=== PATIENT | male | born 1950 | race Two or more races ===

== ENCOUNTER 2024-09-07 07:19 | Day surgery (SDC) | payer OTHER, SELFPAY ==
[2024-09-06 10:42] LABS: Basophils # (Auto) 0.1 Thou/mm3 (0.0-0.2); Basophils % (Auto) 1 % (0-2.5); Eosinophils # (Auto) 0.4 Thou/mm3 (0.0-0.5); Eosinophils % (Auto) 5 % (0-10); Hematocrit 24.1 % (41.0-53.0); Immature Granulocytes % (Auto) 0 % (0-0); Immature Granulocytes Auto 0.03 Thou/mm3 (0.00-0.00); Lymphocytes # (Auto) 1.1 Thou/mm3 (1.0-4.8); Lymphocytes % (Auto) 13 % (10-50); Mean Corpuscular HGB Conc 32.8 g/dl (31.0-37.0); Mean Corpuscular Hemoglobin 33.2 pg (25.0-35.0); Mean Corpuscular Volume 101 fL (80-100); Monocytes # (Auto) 0.6 Thou/mm3 (0.0-0.8); Monocytes % (Auto) 8 % (0-12); Neutrophils % (Auto) 73 % (37-80); Nucleated Red Blood Cell % 0 /100 WBC (0); Platelet Count 258 Thou/mm3 (140-440); RDW Standard Deviation 55.8 fL (35.1-43.9); Red Blood Count 2.38 Miln/mm3 (4.50-5.90); White Blood Count 8.1 Thou/mm3 (3.8-10.6)
[2024-09-06 10:54] LABS: Anion Gap 7 (7-16); BUN/Creatinine Ratio 15 Ratio (12-20); Blood Urea Nitrogen 39 mg/dL (9-23); Calcium 9.6 mg/dL (8.3-10.6); Carbon Dioxide 30.7 mMol/L (20.0-31.0); Chloride 101 mMol/L (98-107); Creatinine (Component) 2.6 mg/dL (0.6-1.3); Glucose 113 mg/dL (74-106); Osmolality,Calculated 287 (275-295); Potassium 3.8 mMol/L (3.4-5.1); Sodium 139 mMol/L (136-145); eGFR 25 See Note
[2024-09-06 11:26] LABS: Hemoglobin 7.9 g/dL (13.5-16.0); INR 1.1 (0.9-1.3); Partial Thromboplastin Time 32.7 Seconds (22.0-36.0); Prothrombin Time 11.7 Seconds (9.0-12.2)
[2024-09-07] VITALS (29 sets, daily range): BP systolic 95–149; BP diastolic 59–88; PULSE 60–62; RESP 12–91; TEMP 36.2–36.6; O2SAT 92–100; BMI 29.8
--- NOTE | 2024-09-07 07:20 | CHAP ---
Prayed with patient in [employer] H[employer] Operator before procedure.
--- NOTE | 2024-09-07 10:09 | PC.NURSE ---
per md order act checked. Act at 197. will reassess between 30min to 1hr per md orders
--- NOTE | 2024-09-07 11:55 | PC.NURSE ---
per md order act obtain. act 181. notified. per ok to remove shealth
--- NOTE | 2024-09-07 14:29 | ESOP_ITS ---
RE: ANGELICA LAU : 1950 PROCEDURES PERFORMED: 1. Percutaneous coronary intervention (PCI) of the right coronary artery. 2. PTCA and stent placement of the right coronary artery using drug-eluting stent 3.5 x 28 mm Synergy stent deployment, preprocedure stenosis 80%, postprocedure 0%, CPT code 34093. 3. Additional procedure, intracoronary lithotripsy of the right coronary artery, [employer], CPT code 45900. 4. Conscious sedation, 1 hour duration. 5. Ultrasound guidance of the right radial artery. DIAGNOSIS: Coronary artery disease, calcification of the right coronary artery with 80% stenosis of the right coronary artery with heavy calcification and recurrent chest pain on minimal exertion, class III angina. HISTORY AND INDICATIONS: Mr. Lau is a 74-year-old male with history of chronic kidney disease, hemodialysis, hypertension, multiple stents placed in the LAD, distal RCA, PDA, PL branches, was found to have 80% stenosis with concentric ring of calcium in the proximal RCA, unable to dilate the balloons, recommended to have intracoronary lithotripsy, intravascular lithotripsy balloon angioplasty followed by stent placement. DESCRIPTION OF PROCEDURE: The patient was brought to cardiac as an arbitrary, conscious sedation given 2 mg of Versed, 50 mcg of fentanyl for sedation. Femoral upper stricture, right femoral artery was cannulated via micropuncture technique and 6-Kazakh sheath was introduced. A 6-Kazakh FR4 guiding catheterization was used to cannulate the right coronary artery. The right coronary angiogram showed following findings, heavy calcification made on proximal RCA, 80% stenosis of the proximal right coronary artery. Distal right coronary artery has stents in the PDA as well as healed branches. Bifurcation stents are widely patent. Proceed with the ATOMIZER ASSEMBLER. The patient was given a total heparin of 7000 units and ACT was 290. Proceed with PCI already on aspirin and Plavix. A 0.014 run-through guide were used properly and successfully. Intravascular lithotripsy was attempted with 3.5 x 10 mm balloon; however, unable to cross the lesion. Hence, used a GuideIP Fabricslla guide liner with supported catheter with the help I was able to do pre-dilation angioplasty, 3.5 mm NC balloons , pre-dilated using a 3.5 x 10 mm intravascular lithotripsy balloon multiple areas were treated with intravascular lithotripsy. Subsequently, able to advance the stent a 3.5 x 28 mm Synergy stent was deployed successfully in the proximal mid right coronary artery with maximum atmospheres of 12. Subsequently, a 4.0 x 12 mm noncompliant balloon was used to dilate the stent with 40 atmosphere of pressure with excellent result with no residual stenosis. Final angiogram showed widely patent right carotid with no residual stenosis. SUMMARY OF FINDINGS: Single-vessel coronary artery disease, successful complex PCI stent placement of the proximal RCA 3.5 x 28 mm Synergy stent, preprocedure is 80%, postprocedure is 0%, PAUL flow pre and posterior 3. Successful intravascular lithotripsy to facilitate a PCI stent placement with no complications. Estimated blood loss less than 10 mL. DT: 13:29:04 TT: 14:28:00 Ref: [id number] - TID: [id number] MTDD
--- NOTE | 2024-09-07 17:17 | PC.NURSE ---
SURGICAL SITE TO RIGHT GROIN AREA REMAINS ASYMPTOMATIC, NO ACTIVE BLEEDING, NO HEMATOMA NOTED ON RIGHT GROIN AREA. RIGHT FEMORAL PULSE NOTED WITH NO CHANGES IN STRENGHT AND QUALITY UPON PALPATION (normal), RIGHT DORSALIS PEDIS PULSE NOTED WITH NO CHANGES STRENGHT AND QUALITY. DISTAL CAPPILARRY REFILL <3 SECONDS (Baseline, Right Toes). NO NOTED CHANGES IN COLOR OR TEMPERATURE ON RIGHT LOWER EXTREMITY. PATIENT DENIES GENERAL AND LOCALIZED PAIN. NO TINGLING OR NUMBNESS FELT TO RIGHT LOWER EXTREMITY. NO LOSS IN SENSATION TO RIGHT LOWER EXTEREMITY SURGICAL SITE COVERED WITH GAUZE AND TAGADERM DRESSING, WHICH REMAINS IN PLACE, DRY, AND INTACT.
== END 2024-09-07 17:46 | disposition home or self-care (01) ==
PROVIDERS: PCP Internal Medicine; Referring Provider Internal Medicine Cardiovascular Disease; Visit Provider Internal Medicine Cardiovascular Disease
PROC: (CPT 92972; principal; 2024-09-07 07:30)
PROC: (CPT 92972; 2024-09-07 07:30)
DX: I25.118 Atherosclerotic heart disease of native coronary artery with other forms of angina pectoris (principal); I12.9 Hypertensive chronic kidney disease with stage 1 through stage 4 chronic kidney disease, or unspecified chronic kidney disease; I12.0 Hypertensive chronic kidney disease with stage 5 chronic kidney disease or end stage renal disease; N18.6 End stage renal disease; Z99.2 Dependence on renal dialysis; Z95.5 Presence of coronary angioplasty implant and graft
CPT/HCPCS: 92972; C9600; 36415; 80048; 85025; 85347; 85610; 85730; 93005; 99152; 99153; A4649; C1725; C1761; C1769; C1874; C1887; C1894; J0171; J0461; J1643; J2250; J2270; J2310; J2371; J3010; J3490; Q9967; J1644; J2305

== ENCOUNTER 2024-09-13 10:51 | Emergency (ER) | payer OTHER, SELFPAY ==
[2024-09-13 10:52] VITALS: BMI 29.8
--- NOTE | 2024-09-13 11:00 | EKG_ITS ---
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
[2024-09-13 11:31] VITALS: BP 108/63; PULSE 61; RESP 20; TEMP 37.1; O2SAT 95; BMI 29.9
--- NOTE | 2024-09-13 11:38 | XR_ITS ---
Examination: PA chest lateral 2 views TECHNIQUE: Upright PA lateral chest 2 views Exam date and time: September 13, 2024 1210 hours Comparison August 08, 2024 INDICATIONS: Chest pain today FINDINGS: Mild heart failure Mild enlargement cardiac contour Prominent vascular congestion Bilateral pneumonia especially right lung base Cardiac leads satisfactory position IMPRESSION: Mild heart failure Significant bilateral pneumonia
--- NOTE | 2024-09-13 11:38 | PD.EDRME ---
Rapid Medical Screening Exam RME Arrival date/time: 09/13/24 10:51 74-year-old male ESRD on dialysis presents emergency department today stating was told to come here by the dialysis staff for low hemoglobin patient does report generalized weakness and increased swelling of the lower extremities Chief Complaint: Weakness Time Seen by Provider: 09/13/24 11:14 Vital signs: Vital Signs Temperature 98.7 F 09/13/24 11:31 Pulse Rate 61 09/13/24 11:31 Respiratory Rate 20 09/13/24 11:31 Blood Pressure 108/63 09/13/24 11:31 Pulse Oximetry (%) 95 09/13/24 11:31 Oxygen Delivery Method Room Air 09/13/24 11:31
[2024-09-13 12:08] LABS: Basophils # (Auto) 0.1 Thou/mm3 (0.0-0.2); Basophils % (Auto) 1 % (0-2.5); Eosinophils # (Auto) 0.4 Thou/mm3 (0.0-0.5); Eosinophils % (Auto) 6 % (0-10); Hematocrit 22.5 % (41.0-53.0); Immature Granulocytes % (Auto) 1 % (0-0); Immature Granulocytes Auto 0.03 Thou/mm3 (0.00-0.00); Lymphocytes % (Auto) 16 % (10-50); Mean Corpuscular HGB Conc 32.4 g/dl (31.0-37.0); Mean Corpuscular Hemoglobin 33.5 pg (25.0-35.0); Mean Corpuscular Volume 103 fL (80-100); Monocytes # (Auto) 0.5 Thou/mm3 (0.0-0.8); Monocytes % (Auto) 9 % (0-12); Neutrophils # (Auto) 4.2 Thou/mm3 (1.8-7.7); Neutrophils % (Auto) 68 % (37-80); Nucleated Red Blood Cell % 0 /100 WBC (0); Platelet Count 232 Thou/mm3 (140-440); RDW Standard Deviation 56.9 fL (35.1-43.9); Red Blood Count 2.18 Miln/mm3 (4.50-5.90); White Blood Count 6.2 Thou/mm3 (3.8-10.6)
[2024-09-13 12:12] LABS: Hemoglobin 7.3 g/dL (13.5-16.0)
[2024-09-13 12:21] LABS: INR 1.1 (0.9-1.3); Partial Thromboplastin Time 32.2 Seconds (22.0-36.0); Prothrombin Time 12.2 Seconds (9.0-12.2)
[2024-09-13 12:26] LABS: Alanine Aminotransferase 49 U/L (10-49); Albumin/Globulin Ratio 1.5 (1.2-2.2); Alkaline Phosphatase 152 U/L (46-116); Anion Gap 6 (7-16); Aspartate Amino Transferase 35 U/L (0-34); B-Type Natriuretic Peptide 2262 pg/mL (0-100); BUN/Creatinine Ratio 12 Ratio (12-20); Bilirubin,Total 0.4 mg/dL (0.3-1.2); Blood Urea Nitrogen 33 mg/dL (9-23); Carbon Dioxide 32.1 mMol/L (20.0-31.0); Chloride 102 mMol/L (98-107); Creatinine (Component) 2.8 mg/dL (0.6-1.3); Estimated Creatinine Clearance 29.2 mL/min (>60); Globulin 2.7 gm/dL (2.3-3.5); Glucose 181 mg/dL (74-106); Osmolality,Calculated 291 (275-295); Potassium 3.8 mMol/L (3.4-5.1); Sodium 140 mMol/L (136-145); Total Protein 6.7 gm/dL (5.7-8.2); eGFR 23 See Note
[2024-09-13 12:30] LABS: Troponin I 0.135 ng/mL (0.0-0.045)
--- NOTE | 2024-09-13 14:28 | PD.EDADULT ---
ED General RME/HPI General Chief complaint: Weakness Stated complaint: SENT FROM DIALYSIS FOR POSSIBLE BLOOD TRASFUSION Time Seen by Provider: 09/13/24 11:14 Arrival date/time: 09/13/24 10:51 RME / HPI RME / HPI narrative: 09/13/24 10:51 74-year-old male ESRD on dialysis presents emergency department today stating was told to come here by the dialysis staff for low hemoglobin patient does report generalized weakness and increased swelling of the lower extremities DR. MOSS MAIN ED EVALUATION 74 year old male with history of hypertension, diabetes, CKD, ESRD on HD, chronic back pain presents to the ED sent for low hemoglobin today. Patient reports he received his full dialysis treatment this morning and hours after arriving home was called by the dialysis clinic to come to the ED for blood transfusion. Denies any fevers, chills, chest pain, cough, shortness of breath, abdominal pain, or bleeding. No other complaints reported. Related Data Home Medications ?Medication ?Instructions ?Recorded ?Confirmed amiodarone 200 mg tablet 200 mg PO BID 07/13/23 09/07/24 vitamin B complex-vitamin C-folic 1 tab PO QDAY 07/13/23 09/07/24 acid 0.8 mg tablet (Homa-Franci) aspirin 81 mg tablet,delayed 81 mg PO QDAY 09/16/23 09/07/24 release atorvastatin 40 mg tablet 40 mg PO QPM 09/16/23 09/07/24 clopidogrel 75 mg tablet (Plavix) 75 mg PO QDAY 09/16/23 09/07/24 doxazosin 1 mg tablet 2 mg PO QDAY 09/16/23 09/07/24 hydrocodone 10 mg-acetaminophen 10 - 325 tab PO BID 09/18/23 09/07/24 325 mg tablet furosemide 20 mg tablet 20 mg PO 1XD 07/23/24 09/07/24 sodium bicarbonate 325 mg tablet 325 mg PO 1XD 07/23/24 09/07/24 albuterol sulfate 90 mcg/actuation 2 puff inhalation QID PRN sob 09/07/24 09/07/24 aerosol inhaler calcitriol 0.5 mcg capsule 0.5 mcg PO QDAY 09/07/24 09/07/24 empagliflozin 10 mg tablet 10 mg PO QDAY 09/07/24 09/07/24 (Jardiance) hydralazine 50 mg tablet 50 mg PO TID 09/07/24 09/07/24 pramipexole 0.5 mg tablet 0.5 mg PO BID 09/07/24 09/07/24 sevelamer carbonate 800 mg tablet 800 mg PO 09/07/24 Previous Rx's ?Medication ?Instructions ?Recorded metoprolol succinate 50 mg 50 mg PO QDAY #30 tabs 10/15/23 tablet,extended release 24 hr nitroglycerin 0.3 mg sublingual 0.3 mg buccal Q5MIN PRN chest pain 07/26/24 tablet #15 tabs Allergies Allergy/AdvReac Type Severity Reaction Status Date / Time No Known Allergies Allergy Verified 09/13/24 10:54 Review of Systems Review of Systems Narrative Review of Systems: GEN: No fever, no chills, no weight loss EYES: No discharge, no visual changes, no pain HEENT: No ear pain, no congestion, no sore throat PULM: No shortness of breath, no cough, no congestion CV: No chest pain, no dyspnea on exertion, no palpitations GI: No nausea, no vomiting, no diarrhea, no pain, no constipation : No frequency, no urgency and no dysuria MUSC/SKEL No joint pain, no back pain SKIN: No rash HEME/LYMPH: No easy bleeding or bruising tendencies NEURO: No weakness, no headache Past Medical History Past Medical History CARDIAC: Positive Cardiac Disorders, Myocardial Infarction, Cardiac Arrhythmia, Atrial Fibrillation, Angina and Hypertension RESPIRATORY: Positive Pneumonia GASTROINTESTINAL: Positive Gastrointestinal Disorders and Obesity GENITOURINARY: Positive Genitourinary Disorders, Renal Disease, Dialysis and Benign Prostatic Hyperplasia MUSCULOSKELETAL: Positive Musculoskeletal Disorders, Arthritis and Degenerative Joint Disease ENT: Positive Cataracts and Deafness (hearing aid) ENDOCRINE: Positive Endocrine Disorders and Diabetes Mellitus Type 2 HEMATOLOGIC: Positive Blood Disorders and Anemia PSYCHO/SOCIAL: Positive Depression and Anxiety OTHER HISTORY: Positive Hospitalization, Shingles, Blood Transfusions, Chicken Pox and Measles Family History FAMILY HISTORY: Positive Family Cardiac Disorders Surgical History SURGICAL: Positive Coronary Stent, Pacemaker, Angiogram, Joint Replacement and Arthroscopy Social History SMOKING STATUS: Never smoker SECOND HAND EXPOSURE: No SUBSTANCE USE: marijuana ED Exam Narrative Physical exam: GENERAL APPEARANCE: Well hydrated, well nourished, in no acute distress. VITALS: All vitals were reviewed and the pulse ox is 95% on room air which is normal according to my interpretation. HEENT: Normocephalic, atramatic, EOMI, EACs are patent. There is no bulge or retraction. Throat without erythema or exudate. Moist oromucosa. No jaundice NECK: Supple, no JVD or bruits. CARDIOVASCULAR: Heart regular without S3-S4 or murmur. No rubs or gallops. LUNGS/CHEST: Clear to auscultation bilaterally. No rales, rhonchi, or wheezing. Normal inspection. ABDOMEN: Soft, nontender, with normal bowel sounds. No pulsatile masses. No rebound, rigidity, or guarding. No incarcerated hernia. Normal inspection and palpation. EXTREMITIES: Normal inspection and palpation. No edema, clubbing, or cyanosis. Intact CSM SKIN: Warm and dry without rashes. Normal inspection. MUSCULOSKELETAL: Normal inspection. No gross deformity, full ROM all extremities NEURO: Alert and oriented x3. Cranial nerves II through XII grossly intact. There are no other motor or sensory deficits noted. PSYCHIATRIC: Normal mood and affect. No psychosis. Course Quality Measures none Orders Category Date Time Status EKG (ED ONLY) *Do not use* NOW Care 09/13/24 11:00 Completed Transfuse,blood/blood products NOW Care 09/13/24 14:56 Active EKG (ED Only) Stat Exams 09/13/24 11:00 Draft XR chest 2V Stat Exams 09/13/24 11:38 Completed B-Type Natriuretic Peptide Stat Lab 09/13/24 11:46 Completed CBC Stat Lab 09/13/24 11:46 Completed Comprehensive Metabolic Panel Stat Lab 09/13/24 11:46 Completed Partial Thromboplastin Time Stat Lab 09/13/24 11:46 Completed Prothrombin Time with INR Stat Lab 09/13/24 11:46 Completed Troponin I Stat Lab 09/13/24 11:46 Completed Type and Screen Stat Lab 09/13/24 11:46 Results prbc [Red Blood Cells] Stat Lab 09/13/24 11:46 Results Vital Signs Vital signs: Vital Signs Temperature 98.7 F 09/13/24 11:31 Pulse Rate 61 09/13/24 11:31 Respiratory Rate 20 09/13/24 11:31 Blood Pressure 108/63 09/13/24 11:31 Pulse Oximetry (%) 95 09/13/24 11:31 Oxygen Delivery Method Room Air 09/13/24 11:31 [facility] Patient data External records reviewed:: [facility] previous records (I reviewed admission from 08/08/2024 through 08/10/2024) Clinical information provided by:: patient Social determinants that could affect healthcare access:: none Patient has the following chronic illnesses:: hypertension, diabetes, CKD, ESRD on HD, chronic back pain How is presenting disease/condition affected by chronic disease/condition?: exacerbated by Evaluation data The following diagnostics were reviewed and interpreted by me:: lab results, radiology exam(s) and EKG tracing(s) Lab and/or radiology exams considered but not ordered:: None Interpretation Summary: Ordering Physician: Sayra VERA)Edgardo NP Date of Service: 09/13/24 Procedure(s): XR chest 2V Accession Number(s): [id number] cc: Sayra VERA),Edgardo DENTON; Glynn Mckenzie MD; Deshaun Riggs MD~ Examination: PA chest lateral 2 views TECHNIQUE: Upright PA lateral chest 2 views Exam date and time: September 13, 2024 1210 hours Comparison August 08, 2024 INDICATIONS: Chest pain today FINDINGS: Mild heart failure Mild enlargement cardiac contour Prominent vascular congestion Bilateral pneumonia especially right lung base Cardiac leads satisfactory position IMPRESSION: Mild heart failure Significant bilateral pneumonia Dictated By: Deshaun Riggs MD Signed By: <Electronically signed by Deshaun Riggs MD in OV> 09/13/24 1223 Medications Medications considered but not ordered:: None Medication administrations:: See above Consultations Consultation(s) initiated? (list below): Yes Consultation #1 (Physician, Specialty, Details): I spoke with Dr. Azevedo and she recommends 1 unit of PRBC and Augmentin for pneumonia. Diagnosis Differential Diagnosis ED Complaint MDM: anemia. GI bleed. Anemia of renal failure. Most likely diagnosis given after review of the tests above:: Anemia of renal failure Admission Indicated Admission indicated?: not indicated Explain why admission is indicated or not indicated:: Admission criteria not met Admission Request Was there a request for admission?: No Disposition Plan Disposition Plan: Discharge Discharge Attestation Discharge Attestation: The patient and all family members were given an opportunity to ask questions and understood the discharge instructions. Discharge instructions specifically effects, indications for sooner follow up or return to the emergency department, and the expected course of current diagnosis. Patient condition: Stable Medical Decision Making MDM Narrative MDM Narrative: Hemoglobin of 7 hematocrit is 22. Patient is stable. BUN is 33 creatinine is 2.8. Troponin is 0.135 but it is chronically elevated in the past. Portable chest x-ray interpreted by me: Enlarged heart. Pacemaker. Questionable slightly increased vasculature. Questionable bibasilar infiltrate. But clinically speaking the patient does not have any cough or fever. Mediastinum is normal. Normal bones. Twelve-lead EKG that was done at 1139 and interpreted by me: Pacemaker rhythm. Heart rate of 60. Left axis. 100% capture. I spoke to Dr. Patel on the phone. She confirmed that the patient will need 1 unit of packed red blood cell transfusion and then can be discharged home. She said the patient can take Augmentin for the pneumonia and she can follow-up with him as an outpatient. The plan was explained to the patient and he was well aware of it and he was consented to staying to get the blood transfusion. However at 6 PM we trying to look for the patient and he is nowhere to be found. Nursing put a note saying that he had eloped. I tried to call the patient on his own cellular phone but there was no answer. Differential Diagnosis Differential Diagnosis: anemia. GI bleed. Anemia of renal failure. Lab Data 09/13/24 11:46 09/13/24 11:46 Labs: Lab Results 09/13/24 Range/Units 11:46 WBC 6.2 (3.8-10.6) Thou/mm3 RBC 2.18 L (4.50-5.90) Miln/mm3 Hgb 7.3 L (13.5-16.0) g/dL Hct 22.5 L (41.0-53.0) % MCV 103 H (80-100) fL MCH 33.5 (25.0-35.0) pg MCHC 32.4 (31.0-37.0) g/dl RDW Std Deviation 56.9 H (35.1-43.9) fL Plt Count 232 (140-440) Thou/mm3 Neut % (Auto) 68 (37-80) % Lymph % (Auto) 16 (10-50) % [place] % (Auto) 9 (0-12) % Eos % (Auto) 6 (0-10) % Baso % (Auto) 1 (0-2.5) % Neut # (Auto) 4.2 (1.8-7.7) Thou/mm3 Lymph # (Auto) 1.0 (1.0-4.8) Thou/mm3 [place] # (Auto) 0.5 (0.0-0.8) Thou/mm3 Eos # (Auto) 0.4 (0.0-0.5) Thou/mm3 Baso # (Auto) 0.1 (0.0-0.2) Thou/mm3 Immature Gran # (Auto) 0.03 H (0.00-0.00) Thou/mm3 Absolute Nucleated RBC 0.00 (0.00-0.00) Thou/mm3 Immature Gran % 1 H (0-0) % Nucleated RBC % 0 (0) /100 WBC PT 12.2 (9.0-12.2) Seconds INR 1.1 (0.9-1.3) APTT 32.2 (22.0-36.0) Seconds Sodium 140 (136-145) mMol/L Potassium 3.8 (3.4-5.1) mMol/L Chloride 102 (98-107) mMol/L Carbon Dioxide 32.1 H (20.0-31.0) mMol/L Anion Gap 6 L (7-16) BUN 33 H (9-23) mg/dL Creatinine 2.8 H (0.6-1.3) mg/dL Estim Creat Clear Calc 29.2 L (>60) mL/min eGFR 23 L (60 - ) See Note BUN/Creatinine Ratio 12 (12-20) Ratio Glucose 181 H (74-106) mg/dL Calculated Osmolality 291 (275-295) Calcium 9.0 (8.3-10.6) mg/dL Corrected Calcium 9.0 (8.5-10.1) mg/dL Total Bilirubin 0.4 (0.3-1.2) mg/dL AST 35 H (0-34) U/L ALT 49 (10-49) U/L Alkaline Phosphatase 152 H (46-116) U/L Troponin I 0.135 H* (0.0-0.045) ng/mL B-Natriuretic Peptide 2262 H* (0-100) pg/mL Total Protein 6.7 (5.7-8.2) gm/dL Albumin 4.0 (3.4-4.8) gm/dL Globulin 2.7 (2.3-3.5) gm/dL Albumin/Globulin Ratio 1.5 (1.2-2.2) Blood Type O Positive Antibody Screen NEGATIVE Crossmatch See Detail Blood Bank Wristband ID Yes Discharge Plan Plan Patient Disposition: Elopement Disposition Comment: Stable Prescriptions/Referrals Prescriptions/Med Rec: No Action Homa-Franci 0.8 mg tablet 1 tab PO QDAY amiodarone 200 mg tablet 200 mg PO BID hydrocodone-acetaminophen 10-325 mg tablet 10 - 325 tab PO BID sodium bicarbonate 325 mg tablet 325 mg PO 1XD furosemide 20 mg tablet 20 mg PO 1XD Patient Comments: TAKE 1 TABLET BY MOUTH EVERY DAY nitroglycerin 0.3 mg tablet, sublingual 0.3 mg buccal Q5MIN MDD 3 pills within 15 minutes. PRN (Reason: chest pain) Qty: 15 0RF Rx Instructions: Place under tongue when chest pain starts. Can repeat dose in 5 minutes if pain does not improve with max total of 3 pills within 15 minutes. Do not mix with erectile dysfunction medicines. May cause low blood pressure and headaches. sevelamer carbonate 800 mg Tablet 800 mg PO calcitriol 0.5 mcg Capsule 0.5 mcg PO QDAY pramipexole 0.5 mg Tablet 0.5 mg PO BID hydralazine 50 mg Tablet 50 mg PO TID albuterol sulfate 90 mcg/actuation Hfa Aerosol Inhaler 2 puff INHALATION QID PRN (Reason: sob) Jardiance 10 mg Tablet 10 mg PO QDAY atorvastatin 40 mg Tablet 40 mg PO QPM doxazosin 1 mg Tablet 2 mg PO QDAY clopidogrel [Plavix] 75 mg Tablet 75 mg PO QDAY aspirin 81 mg Tablet,Delayed Release (Dr/Ec) 81 mg PO QDAY metoprolol succinate 50 mg tablet extended release 24 hr 50 mg PO QDAY Qty: 30 0RF Patient/Caregiver Discharge Instructions Print Language: Burundian
[2024-09-13 15:45] VITALS: BP 109/69; PULSE 67; RESP 20; TEMP 37.1; O2SAT 95
--- NOTE | 2024-09-13 17:14 | PC.NURSE ---
called for pt from lobby/outside, no answerx1 @ 2231
--- NOTE | 2024-09-13 18:01 | PC.NURSE ---
PATIENT CALLED STATES HE IS AT HOME. SOMEONE HAD CALLED HIM. I INFORMED PT THAT THE STAFF HAS CALLED HIM A FEW TIMES BUT I GUESS HE HAD LEFT. STATES HE WAITED FOR A LONG TIME IN THE LOBBY AND JUST LEFT HOME TO FOLLOW UP WITH HIS PMD. I INFORMED PT THAT HE SHOULD COME BACK AND FINISH HIS VISIT. HE STATES THAT HE IS NOT COMING BACK UNLESS HE FEELS WORSE AND WILL TAKE AN AMBULANCE BECAUSE HE DOESN'T WANT TO WAIT IN THE LOBBY. STATES HE WILL MAKE AN APPOINTMENT WITH HIS PMD
== END 2024-09-13 18:00 | disposition left against medical advice (07) ==
LOC: SERX 11:49
PROVIDERS: Nurse Practitioner Primary Care; Emergency Provider Emergency Medicine; PCP Internal Medicine
DX: I13.2 Hypertensive heart and chronic kidney disease with heart failure and with stage 5 chronic kidney disease, or end stage renal disease (principal); I50.9 Heart failure, unspecified; J18.9 Pneumonia, unspecified organism; E11.36 Type 2 diabetes mellitus with diabetic cataract; E11.22 Type 2 diabetes mellitus with diabetic chronic kidney disease; N18.6 End stage renal disease; R94.31 Abnormal electrocardiogram [ECG] [EKG]; Z95.0 Presence of cardiac pacemaker; I48.91 Unspecified atrial fibrillation; I25.2 Old myocardial infarction; Z95.5 Presence of coronary angioplasty implant and graft; Z79.84 Long term (current) use of oral hypoglycemic drugs; Z53.29 Procedure and treatment not carried out because of patient's decision for other reasons
CPT/HCPCS: 36415; 71046; 80053; 83880; 84484; 85025; 85610; 85730; 86850; 86900; 86901; 86923; 93005; 99281

== ENCOUNTER 2024-09-15 04:06 | Inpatient (IN) | payer OTHER, MEDICARE, SELFPAY ==
[2024-09-15] VITALS (35 sets, daily range): BP systolic 113–144; BP diastolic 66–96; PULSE 59–78; RESP 9–20; TEMP 36.1–36.4; O2SAT 94–99; BMI 28.5
--- NOTE | 2024-09-15 04:23 | PD.EDRME ---
Rapid Medical Screening Exam E Arrival date/time: 09/15/24 04:06 74M with history of CHF, CAD, Afib, DM and ESRD presents to ED needing blood transfusion. Patient was here several days ago for this but eloped prior to receiving blood products. Patient is currently on ABX for PNA but denies CP and SOB. Chief Complaint: General Adult/Misc Complain Vital signs: Vital Signs Temperature 97.5 F 09/15/24 04:13 Pulse Rate 60 09/15/24 04:13 Respiratory Rate 18 09/15/24 04:13 Blood Pressure 128/71 09/15/24 04:13 Pulse Oximetry (%) 95 09/15/24 04:13 Oxygen Delivery Method Room Air 09/15/24 04:13
--- NOTE | 2024-09-15 04:49 | EKG_ITS ---
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
[2024-09-15] MEDS: ALBUTEROL/IPRATROPIUM (Duoneb) RT SOL 3 ML NEBU INH (04:59)
[2024-09-15 05:14] LABS: Basophils # (Auto) 0.1 Thou/mm3 (0.0-0.2); Basophils % (Auto) 1 % (0-2.5); Eosinophils # (Auto) 0.5 Thou/mm3 (0.0-0.5); Eosinophils % (Auto) 7 % (0-10); Hematocrit 23.9 % (41.0-53.0); Immature Granulocytes % (Auto) 0 % (0-0); Immature Granulocytes Auto 0.03 Thou/mm3 (0.00-0.00); Lymphocytes # (Auto) 1.1 Thou/mm3 (1.0-4.8); Lymphocytes % (Auto) 16 % (10-50); Mean Corpuscular HGB Conc 31.4 g/dl (31.0-37.0); Mean Corpuscular Hemoglobin 33.3 pg (25.0-35.0); Mean Corpuscular Volume 106 fL (80-100); Monocytes # (Auto) 0.5 Thou/mm3 (0.0-0.8); Monocytes % (Auto) 7 % (0-12); Neutrophils % (Auto) 69 % (37-80); Nucleated Red Blood Cell % 0 /100 WBC (0); Platelet Count 213 Thou/mm3 (140-440); Red Blood Count 2.25 Miln/mm3 (4.50-5.90); White Blood Count 7.2 Thou/mm3 (3.8-10.6)
[2024-09-15 05:18] LABS: Hemoglobin 7.5 g/dL (13.5-16.0)
--- NOTE | 2024-09-15 05:21 | EDNOTE_ITS ---
ED General RME/HPI General Chief complaint: General Adult/Misc Complain Stated complaint: NEED BLOOD TRANSFUSION Time Seen by Provider: 09/15/24 04:48 Arrival date/time: 09/15/24 04:06 Limitations: no limitations RME / HPI RME / HPI narrative: 09/15/24 04:06 74M with history of CHF, CAD, Afib, DM and ESRD presents to ED needing blood transfusion. Patient was here several days ago for this but eloped prior to receiving blood products. Patient is currently on ABX for PNA but denies CP and SOB. ----- Dr. Reynolds's Main ED Evaluation: 74yo female presents to the ED for a blood transfusion. Patient was sent by his PCP 2 days ago for the same thing, but eloped prior to getting the blood transfusion. He reports mild shortness of breath and cough, reporting his was prescribed abx by his PCP, but has not picked them up yet. He denies any fever, chills or any other associated symptoms. Related Data Home Medications ?Medication ?Instructions ?Recorded ?Confirmed amiodarone 200 mg tablet 200 mg PO BID 07/13/23 09/15/24 vitamin B complex-vitamin C-folic 1 tab PO QDAY 07/13/23 09/15/24 acid 0.8 mg tablet (Homa-Franci) atorvastatin 40 mg tablet 40 mg PO QPM 09/16/23 09/15/24 clopidogrel 75 mg tablet (Plavix) 75 mg PO QDAY 09/16/23 09/15/24 doxazosin 1 mg tablet 2 mg PO QDAY 09/16/23 09/15/24 hydrocodone 10 mg-acetaminophen 10 - 325 tab PO Q6H PRN Pain 09/18/23 09/15/24 325 mg tablet furosemide 20 mg tablet 20 mg PO 1XD 07/23/24 09/15/24 albuterol sulfate 90 mcg/actuation 2 puff inhalation QID PRN sob 09/07/24 09/15/24 aerosol inhaler empagliflozin 10 mg tablet 25 mg PO QDAY 09/07/24 09/15/24 (Jardiance) hydralazine 50 mg tablet 25 mg PO TID 09/07/24 09/15/24 pramipexole 0.5 mg tablet 0.5 mg PO BID 09/07/24 09/15/24 amiodarone 200 mg tablet 200 mg PO 2XD 09/15/24 09/15/24 aspirin 81 mg capsule 81 mg PO QDAY 09/15/24 09/15/24 atorvastatin 40 mg tablet 40 mg PO QPM 09/15/24 09/15/24 clopidogrel 75 mg tablet 75 mg PO QDAY 09/15/24 09/15/24 empagliflozin 10 mg tablet 10 mg PO QDAY 09/15/24 09/15/24 (Jardiance) furosemide 20 mg tablet 20 mg PO QDAY 09/15/24 09/15/24 lactulose 10 gram/15 mL oral 10 g PO QDAY 09/15/24 09/15/24 solution melatonin 10 mg capsule 10 mg PO HS PRN Insomnia 09/15/24 09/15/24 vitamin B complex-vitamin C-folic 1 tab PO QDAY 09/15/24 09/15/24 acid 0.8 mg tablet (Homa-Franci) Previous Rx's ?Medication ?Instructions ?Recorded metoprolol succinate 50 mg 50 mg PO QDAY #30 tabs 10/15/23 tablet,extended release 24 hr nitroglycerin 0.3 mg sublingual 0.3 mg buccal Q5MIN PRN chest pain 07/26/24 tablet #15 tabs Allergies Allergy/AdvReac Type Severity Reaction Status Date / Time No Known Allergies Allergy Verified 09/17/24 12:30 Review of Systems Review of Systems Systems Reviewed: All systems reviewed, normal except as documented ED Exam General Limitations: Present no limitations General appearance: Present alert and in no apparent distress Head Head exam: Present atraumatic Eye Eye exam: Present normal appearance, PERRL and EOMI ENT ENT exam: Present normal exam, normal oropharynx and mucous membranes moist Neck Neck exam: Present normal inspection, full ROM and trachea midline Chest Chest inspection: Present normal inspection and symmetric chest wall rise Respiratory Respiratory exam: Present other (rales bilaterally R>L, no rhonchi) Cardiovascular Cardiovascular exam: Present regular rate, normal rhythm, normal heart sounds and other (pacemaker at the anterior left chest wall without any tenderness or erythema) Abdominal Exam Abdominal exam: Present soft and normal bowel sounds Extremities Exam Extremities exam: Present full ROM and pedal edema (2+ pitting edema to the bilateral ankles) Back Exam Back exam: Present normal inspection and full ROM Neurological Exam Neurological exam: Present alert, oriented X3 and CN II-XII intact Psychiatric Psychiatric exam: Present normal affect and normal mood Skin Skin exam: Present warm, dry, intact and normal color Course Quality Measures none Orders Category Date Time Status Dialysis [Hemodialysis] Urgent Care 09/15/24 09:14 Active EKG (ED ONLY) *Do not use* NOW Care 09/15/24 04:49 Completed Insert IV NOW Care 09/15/24 04:23 Completed EKG (ED Only) Stat Exams 09/15/24 04:49 Draft BNP [B-Type Natriuretic Peptide] Stat Lab 09/15/24 04:42 Completed CBC Stat Lab 09/15/24 04:42 Completed CMP [Comprehensive Metabolic Panel] Stat Lab 09/15/24 04:42 Completed Ferritin Stat Lab 09/15/24 04:49 Completed Folate Stat Lab 09/15/24 04:49 Completed Iron Stat Lab 09/15/24 04:49 Completed PT [Prothrombin Time with INR] Stat Lab 09/15/24 04:42 Completed PTT [Partial Thromboplastin Time] Stat Lab 09/15/24 04:42 Completed Red Blood Cells Stat Lab 09/15/24 04:42 Completed Total Iron Binding Capacity Stat Lab 09/15/24 04:49 Completed Troponin I Stat Lab 09/15/24 04:42 Completed Type and Screen Stat Lab 09/15/24 04:42 Completed Vitamin B12 Stat Lab 09/15/24 04:49 Completed Albumin Human 25% Ivpb [Albuminar-25 Ivpb] Med 09/15/24 09:15 Active 25 gm in 100 ml IV PRN Albuterol/Ipratr Rt Treasure [Duoneb Rt Treasure] Med 09/15/24 04:48 Discontinued 3 ml INH X1 ONE Epoetin Jose-Epbx [Retacrit Inj] Med 09/15/24 16:00 Discontinued 10,000 unit SC X1 ONE Vital Signs Vital signs: Vital Signs Temperature 97.5 F 09/15/24 04:13 Pulse Rate 60 09/15/24 04:13 Respiratory Rate 18 09/15/24 04:13 Blood Pressure 128/71 09/15/24 04:13 Pulse Oximetry (%) 95 09/15/24 04:13 Oxygen Delivery Method Room Air 09/15/24 04:13 Pulse ox is 95% on room air, which is normal according to my interpretation. [facility] Patient data External records reviewed:: [facility] previous records (Per chart review, patient was seen here 2 days ago for the same thing, but eloped.) Clinical information provided by:: patient Social determinants that could affect healthcare access:: none Patient has the following chronic illnesses:: hypertension, diabetes, CKD, ESRD on HD (/Thu), chronic back pain How is presenting disease/condition affected by chronic disease/condition?: c aused by Evaluation data The following diagnostics were reviewed and interpreted by me:: lab results and EKG tracing(s) Lab and/or radiology exams considered but not ordered:: none Interpretation Summary: WBC count is normal, HnH is 7.5/23.9, other labs pending at signout. EKG done at 0529, paced rhythm, rate of 60, no ST elevations or depressions, no STEMI, according to my interpretation. Medications Medications considered but not ordered:: none Medication administrations:: Medication Administration History Acetaminophen (Acetaminophen 325 Mg Tablet) 650 mg PO Q6H PRN; Protocol PRN Reason: Fever >100.4 or pain Stop: 10/15/24 11:50 Hydrocodone Bitart/Acetaminophen (Hydrocodone/Apap 5/325 Tablet) 1 tab PO Q4HR PRN PRN Reason: PAIN SCALE 4-6 (Moderate Stop: 09/20/24 11:50 Last Admin: 09/17/24 20:46 Dose: 1 tab Documented By: Admin: 09/17/24 16:46 Dose: 1 tab Documented By: Admin: 09/17/24 05:39 Dose: 1 tab Documented By: ROLANDO Comments: Okay to give pill by DR. Howard Admin: 09/16/24 20:18 Dose: 1 tab Documented By: Admin: 09/16/24 01:12 Dose: 1 tab Documented By: Admin: 09/15/24 21:00 Dose: 1 tab Documented By: KRISTAN Amiodarone HCl (Amiodarone Hcl 200 Mg Tablet) 200 mg PO BID [facility] Stop: 10/15/24 13:59 Last Admin: 09/17/24 20:42 Dose: 200 mg Documented By: Admin: 09/17/24 09:00 Dose: Not Given Documented By: NIKKI Non-Admin Reason: Not In Room Admin: 09/16/24 20:18 Dose: 200 mg Documented By: Admin: 09/16/24 08:34 Dose: 200 mg Documented By: Admin: 09/15/24 20:59 Dose: 200 mg Documented By: Admin: 09/15/24 16:40 Dose: 200 mg Documented By: TN Aspirin (Aspirin Ec 81 Mg Tabec) 81 mg PO QDAY [facility] Stop: 10/15/24 11:59 Last Admin: 09/17/24 09:00 Dose: Not Given Documented By: NIKKI Non-Admin Reason: Not In Room Admin: 09/16/24 08:35 Dose: 81 mg Documented By: Admin: 09/15/24 12:11 Dose: 81 mg Documented By: SILVINA Atorvastatin Calcium (Atorvastatin Calcium 20 Mg Tablet) 40 mg PO HS VIKRAM Stop: 10/15/24 20:59 Last Admin: 09/17/24 20:41 Dose: 40 mg Documented By: Admin: 09/16/24 20:18 Dose: 40 mg Documented By: Admin: 09/15/24 21:00 Dose: 40 mg Documented By: KRISTAN Dextrose (Dextrose 50%-Water Inj 50 Ml Syringe) 25 ml IV Q15MIN PRN PRN Reason: BG 50-70 responsive npo pt Stop: 10/15/24 11:50 Dextrose (Dextrose 50%-Water Inj 50 Ml Syringe) 50 ml IV Q15MIN PRN PRN Reason: BG <50 OR BG <70 & pt unresponsive Stop: 10/15/24 11:50 Furosemide (Furosemide Inj 10 Mg/Ml Vial 2 Ml) 20 mg IVP DAILY [facility] Stop: 10/17/24 08:59 Last Admin: 09/17/24 09:00 Dose: Not Given Documented By: NIKKI Non-Admin Reason: Not In Room Glucagon (Glucagon Inj 1 Mg Vial) 1 mg IM Q15MIN PRN PRN Reason: BG <70, and no IV access Albumin Human (Albuminar-25 Ivpb) 25 gm in 100 mls @ 100 mls/min IV PRN PRN PRN Reason: DIALYSIS Insulin Human Lispro (Insulin Lispro (Admelog) 1 Unit/0.01 Ml Unit) 0 unit SC ACHS [facility]; Protocol Stop: 10/15/24 16:59 Last Admin: 09/17/24 20:50 Dose: Not Given Documented By: ROLANDO Non-Admin Reason: Patient Refused Admin: 09/17/24 16:43 Dose: Not Given Documented By: NIKKI Non-Admin Reason: Per Protocol Admin: 09/17/24 12:14 Dose: Not Given Documented By: NIKKI Non-Admin Reason: Not In Room Admin: 09/17/24 07:27 Dose: Not Given Documented By: NIKKI Non-Admin Reason: Per Protocol Admin: 09/16/24 20:57 Dose: Not Given Documented By: ROLANDO Non-Admin Reason: Patient Refused Admin: 09/16/24 17:18 Dose: Not Given Documented By: TN Non-Admin Reason: Per Protocol Admin: 09/16/24 11:19 Dose: Not Given Documented By: TN Non-Admin Reason: NPO Admin: 09/16/24 07:27 Dose: Not Given Documented By: TN Non-Admin Reason: Per Protocol Admin: 09/15/24 21:00 Dose: Not Given Documented By: KRISTAN Non-Admin Reason: Patient Refused Admin: 09/15/24 17:26 Dose: 1 unit Documented By: JAMES Co-signed By: ANDREW Melatonin (Melatonin 3 Mg Tablet) 9 mg PO HS PRN PRN Reason: Insomnia Last Admin: 09/17/24 20:41 Dose: 9 mg Documented By: Admin: 09/15/24 20:59 Dose: 9 mg Documented By: KRISTAN Pantoprazole Sodium (Pantoprazole Inj 40 Mg Vial) 40 mg IVP QDAY VIKRAM Stop: 10/16/24 08:59 Last Admin: 09/17/24 09:00 Dose: Not Given Documented By: NIKKI Non-Admin Reason: Not In Room Admin: 09/16/24 08:33 Dose: 40 mg Documented By: JAMES Pramipexole Dihydrochloride (Pramipexole 0.25 Mg Tablet) 0.5 mg PO BID VIKRAM Stop: 10/15/24 20:59 Last Admin: 09/17/24 20:41 Dose: 0.5 mg Documented By: Admin: 09/17/24 09:00 Dose: Not Given Documented By: NIKKI Non-Admin Reason: Not In Room Admin: 09/16/24 20:19 Dose: 0.5 mg Documented By: Admin: 09/16/24 08:34 Dose: 0.5 mg Documented By: Admin: 09/15/24 20:59 Dose: 0.5 mg Documented By: KRISTAN Sennosides (Senna Tablet) 2 tab PO BID PRN; Protocol PRN Reason: CONSTIPATION Stop: 10/15/24 11:50 Vitamin B Complex/Vit C/Folic Acid (Vit B12/Vit C/Fa (Nephrovite) Tablet) 1 tab PO QDAY [facility] Stop: 10/16/24 08:59 Last Admin: 09/17/24 09:00 Dose: Not Given Documented By: NIKKI Non-Admin Reason: Not In Room Admin: 09/16/24 08:34 Dose: 1 tab Documented By: TN Discontinued Medications Acetaminophen (Acetaminophen 325 Mg Tablet) 650 mg PO Q6H PRN PRN Reason: PAIN SCALE 1-3 (mild Stop: 10/15/24 11:50 Albuterol/Ipratropium (Albuterol/Ipratropium (Duoneb) Rt Treasure 3 Ml Nebu) 3 ml INH X1 ONE Stop: 09/15/24 04:49 Last Admin: 09/15/24 04:59 Dose: 3 ml Documented By: EMILY Clopidogrel Bisulfate (Clopidogrel Bisulfate 75 Mg Tablet) 75 mg PO QDAY [facility] Stop: 10/15/24 11:59 Last Admin: 09/17/24 09:00 Dose: Not Given Documented By: NIKKI Non-Admin Reason: Not In Room Admin: 09/16/24 08:35 Dose: 75 mg Documented By: Admin: 09/15/24 12:11 Dose: 75 mg Documented By: SILVINA Diphenhydramine HCl (Diphenhydramine Inj 50 Mg/Ml Vial) 25 mg IV PRNMRX1 PRN PRN Reason: MODERATE SEDATION Stop: 09/17/24 12:47 Epoetin Jose (Epoetin Jose-Epbx 3,000 Unit/Ml Vial (Esrd)) 10,000 unit SC X1 ONE Stop: 09/15/24 16:01 Epoetin Jose (Epoetin Jose-Epbx Inj 10,000 Unit/Ml Vial (Esrd)) 10,000 unit SC X1 ONE Stop: 09/15/24 13:46 Last Admin: 09/15/24 15:30 Dose: 10,000 unit Documented By: MAGDY Epoetin Jose (Epoetin Jose-Epbx Inj 10,000 Unit/Ml Vial (Esrd)) 10,000 unit SC X1 ONE Stop: 09/17/24 10:01 Last Admin: 09/17/24 09:49 Dose: 10,000 unit Documented By: ED Fentanyl Citrate (Fentanyl Cit Inj 50 Mcg/Ml Amp 2ml) 50 mcg IV Q2M PRN PRN Reason: MODERATE SEDATION Stop: 09/17/24 12:47 Fentanyl Citrate (Fentanyl Cit Inj 50 Mcg/Ml Amp 2ml) Confirm Administered Dose 100 mcg .ROUTE .STK-MED ONE Stop: 09/17/24 11:58 Furosemide (Furosemide Inj 10 Mg/Ml Vial 2 Ml) 20 mg IVP BID VIKRAM Stop: 10/16/24 10:44 Last Admin: 09/16/24 11:24 Dose: 20 mg Documented By: TN Midazolam HCl (Midazolam Inj 1 Mg/Ml Vial 2 Ml) 2 mg IV Q2M PRN PRN Reason: Moderate Sedation Stop: 09/17/24 12:47 Midazolam HCl (Midazolam Inj 1 Mg/Ml Vial 2 Ml) Confirm Administered Dose 4 mg .ROUTE .STK-MED ONE Stop: 09/17/24 11:58 Polyethylene Glycol/Electrolytes (Na Frye/Nahco3/Lester/Peg (Golytely) 4,000 Ml Btl) 4,000 ml PO X1 ONE Stop: 09/17/24 12:24 Last Admin: 09/17/24 13:54 Dose: 4,000 ml Documented By: NIKKI Comments: Patient wanted to Speak to Dr. Collier before taking Polyethylene Glycol/Electrolytes (Na Frye/Nahco3/Lestre/Peg (Golytely) 4,000 Ml Btl) 4,000 ml PO X1 ONE Stop: 09/17/24 12:33 Last Admin: 09/17/24 12:45 Dose: Not Given Documented By: NIKKI Non-Admin Reason: Duplicate Medication on eMAR Comments: Per Dr. Collier only one needed see above Consultations Consultation(s) initiated? (list below): No Diagnosis Differential Diagnosis ED Complaint MDM: acute on chronic anemia, CHF, hyperkalemia, subacute pneumonia Most likely diagnosis given after review of the tests above:: see below Admission Indicated Admission indicated?: not indicated Explain why admission is indicated or not indicated:: Admission criteria not met. Admission Request Was there a request for admission?: No Disposition Plan Disposition Plan: other (specify) (Signed out to Dr. Macedo at 0600 pending blood transfusion and labs.) Medical Decision Making Differential Diagnosis Differential Diagnosis: acute on chronic anemia, CHF, hyperkalemia, subacute pneumonia Lab Data 09/17/24 05:25 09/17/24 05:25 Labs: Lab Results 09/15/24 09/15/24 Range/Units 04:42 04:49 WBC 7.2 (3.8-10.6) Thou/mm3 RBC 2.25 L (4.50-5.90) Miln/mm3 Hgb 7.5 L (13.5-16.0) g/dL Hct 23.9 L (41.0-53.0) % MCV 106 H (80-100) fL MCH 33.3 (25.0-35.0) pg MCHC 31.4 (31.0-37.0) g/dl RDW Std Deviation 60.0 H (35.1-43.9) fL Plt Count 213 (140-440) Thou/mm3 Neut % (Auto) 69 (37-80) % Lymph % (Auto) 16 (10-50) % [place] % (Auto) 7 (0-12) % Eos % (Auto) 7 (0-10) % Baso % (Auto) 1 (0-2.5) % Neut # (Auto) 5.0 (1.8-7.7) Thou/mm3 Lymph # (Auto) 1.1 (1.0-4.8) Thou/mm3 [place] # (Auto) 0.5 (0.0-0.8) Thou/mm3 Eos # (Auto) 0.5 (0.0-0.5) Thou/mm3 Baso # (Auto) 0.1 (0.0-0.2) Thou/mm3 Immature Gran # (Auto) 0.03 H (0.00-0.00) Thou/mm3 Absolute Nucleated RBC 0.00 (0.00-0.00) Thou/mm3 Immature Gran % 0 (0-0) % Nucleated RBC % 0 (0) /100 WBC PT 12.1 (9.0-12.2) Seconds INR 1.1 (0.9-1.3) APTT 31.4 (22.0-36.0) Seconds Sodium 139 (136-145) mMol/L Potassium 4.6 D (3.4-5.1) mMol/L Chloride 103 (98-107) mMol/L Carbon Dioxide 23.8 (20.0-31.0) mMol/L Anion Gap 12 (7-16) BUN 62 H (9-23) mg/dL Creatinine 4.4 H* D (0.6-1.3) mg/dL Estim Creat Clear Calc 18.2 L (>60) mL/min eGFR 14 L* (60 - ) See Note BUN/Creatinine Ratio 14 (12-20) Ratio Glucose 220 H (74-106) mg/dL Calculated Osmolality 302 H (275-295) Calcium 9.2 (8.3-10.6) mg/dL Corrected Calcium 9.3 (8.5-10.1) mg/dL Iron 62 L (65-175) mcg/dL TIBC 265 (250-425) mcg/dL Total Bilirubin 0.3 (0.3-1.2) mg/dL Ferritin 607 H (10.5-307.3) ng/mL AST 49 H (0-34) U/L ALT 57 H (10-49) U/L Alkaline Phosphatase 170 H (46-116) U/L Troponin I 0.079 H* (0.0-0.045) ng/mL B-Natriuretic Peptide 2630 H* (0-100) pg/mL Total Protein 6.8 (5.7-8.2) gm/dL Albumin 3.9 (3.4-4.8) gm/dL Globulin 2.9 (2.3-3.5) gm/dL Albumin/Globulin Ratio 1.3 (1.2-2.2) Vitamin B12 639 (211-911) pg/mL Folate > 24.00 (>5.38) ng/mL Blood Type O Positive Antibody Screen NEGATIVE Crossmatch See Detail Blood Bank Wristband ID Yes Discharge Plan Plan Patient Disposition: Admit Acute Care w/in Hospital Disposition Comment: Hospitalist to admit director day care center to consult Patient condition on transfer: Stable Problem List Clinical Impression: Fluid overload, ESRF (end stage renal failure), Acute anemia, Dialysis patient, Elevated troponin
[2024-09-15 05:56] LABS: INR 1.1 (0.9-1.3); Partial Thromboplastin Time 31.4 Seconds (22.0-36.0); Prothrombin Time 12.1 Seconds (9.0-12.2)
--- NOTE | 2024-09-15 06:25 | PD.EDADDENDU ---
Emergency Room Addendum Addendum Narrative: 0600: Care assumed from Dr. Reynolds, the previous shift emergency physician. Past medical, surgical, social and family history reviewed. Vitals and home medications reviewed. I will assume the care of the patient at this time, pending blood transfusion, labs, and reassessment. Please refer to the emergency department record for history and examination from initial visit.? Nursing notes reviewed by me. Vital signs reviewed by me. [facility] medical records reviewed by me.
[2024-09-15 06:35] LABS: B-Type Natriuretic Peptide 2630 pg/mL (0-100)
[2024-09-15 06:44] LABS: Alanine Aminotransferase 57 U/L (10-49); Albumin, Serum 3.9 gm/dL (3.4-4.8); Albumin/Globulin Ratio 1.3 (1.2-2.2); Alkaline Phosphatase 170 U/L (46-116); Anion Gap 12 (7-16); Aspartate Amino Transferase 49 U/L (0-34); BUN/Creatinine Ratio 14 Ratio (12-20); Bilirubin,Total 0.3 mg/dL (0.3-1.2); Blood Urea Nitrogen 62 mg/dL (9-23); Calcium 9.2 mg/dL (8.3-10.6); Calcium (Corrected) 9.3 mg/dL (8.5-10.1); Carbon Dioxide 23.8 mMol/L (20.0-31.0); Chloride 103 mMol/L (98-107); Creatinine (Component) 4.4 mg/dL (0.6-1.3); Estimated Creatinine Clearance 18.2 mL/min (>60); Globulin 2.9 gm/dL (2.3-3.5); Glucose 220 mg/dL (74-106); Osmolality,Calculated 302 (275-295); Potassium 4.6 mMol/L (3.4-5.1); Sodium 139 mMol/L (136-145); Total Protein 6.8 gm/dL (5.7-8.2); eGFR 14 See Note
[2024-09-15 06:51] LABS: Troponin I 0.079 ng/mL (0.0-0.045)
--- NOTE | 2024-09-15 08:35 | PD.EDRECHK ---
ED Recheck Abnl Lab Rx-RME/HPI General Chief Complaint: General Adult/Misc Complain Stated Complaint: NEED BLOOD TRANSFUSION Time Seen by Provider: 09/15/24 04:48 Arrival date/time: 09/15/24 04:06 Limitations: no limitations RME / HPI RME / HPI narrative: 09/15/24 04:06 74M with history of CHF, CAD, Afib, DM and ESRD presents to ED needing blood transfusion. Patient was here several days ago for this but eloped prior to receiving blood products. Patient is currently on ABX for PNA but denies CP and SOB. ----- Dr. Reynolds's Main ED Evaluation: 74yo female presents to the ED for a blood transfusion. Patient was sent by his PCP 2 days ago for the same thing, but eloped prior to getting the blood transfusion. He reports mild shortness of breath and cough, reporting his was prescribed abx by his PCP, but has not picked them up yet. He denies any fever, chills or any other associated symptoms. Dr. Macedo: 0600: Care assumed from Dr. Reynolds, the previous shift emergency physician. Past medical, surgical, social and family history reviewed. Vitals and home medications reviewed. I will assume the care of the patient at this time, pending blood transfusion, labs, and reassessment. Please refer to the emergency department record for history and examination from initial visit.? Patient reports he was evaluated here just 3 days ago also advised to come to the ED by the staff at the dialysis clinic. States he has received only 1 blood transfusion before and has no previous history of anemia. Denies any bleeding. Further history by myself reveals patient a dialysis patient he has been having increasing fluid overload and had recently increased amount of dialysis from 2-3 times a week but nonetheless his legs are still swollen. Also the dialysis people are concerned because hemoglobin was 6.8 and that is a personal communication from Dr Azevedo when I called her and asked why he was prompted to come here to get a unit of blood. Last dialysis was 2 days ago. There is no fever vomiting diarrhea there is no other complaints today. He has had generalized weakness getting worse over the last couple weeks. Related Data Home Medications ?Medication ?Instructions ?Recorded ?Confirmed amiodarone 200 mg tablet 200 mg PO BID 07/13/23 09/15/24 vitamin B complex-vitamin C-folic 1 tab PO QDAY 07/13/23 09/15/24 acid 0.8 mg tablet (Homa-Franci) atorvastatin 40 mg tablet 40 mg PO QPM 09/16/23 09/15/24 clopidogrel 75 mg tablet (Plavix) 75 mg PO QDAY 09/16/23 09/15/24 doxazosin 1 mg tablet 2 mg PO QDAY 09/16/23 09/15/24 hydrocodone 10 mg-acetaminophen 10 - 325 tab PO Q6H PRN Pain 09/18/23 09/15/24 325 mg tablet furosemide 20 mg tablet 20 mg PO 1XD 07/23/24 09/15/24 albuterol sulfate 90 mcg/actuation 2 puff inhalation QID PRN sob 09/07/24 09/15/24 aerosol inhaler empagliflozin 10 mg tablet 25 mg PO QDAY 09/07/24 09/15/24 (Jardiance) hydralazine 50 mg tablet 25 mg PO TID 09/07/24 09/15/24 pramipexole 0.5 mg tablet 0.5 mg PO BID 09/07/24 09/15/24 lactulose 10 gram/15 mL oral 10 g PO QDAY 09/15/24 09/15/24 solution Previous Rx's ?Medication ?Instructions ?Recorded metoprolol succinate 50 mg 50 mg PO QDAY #30 tabs 10/15/23 tablet,extended release 24 hr nitroglycerin 0.3 mg sublingual 0.3 mg buccal Q5MIN PRN chest pain 07/26/24 tablet #15 tabs Allergies Allergy/AdvReac Type Severity Reaction Status Date / Time No Known Allergies Allergy Verified 09/13/24 10:54 Review of Systems Review of Systems Narrative Review of Systems: Constitutional: SEE HPI +generalized weakness. DENIES; Fevers Eyes: DENIES; Loss of vision Head/Ear/Nose: DENIES; Loss of hearing Throat: DENIES; Dysphagia Cardiovascular: DENIES; Chest pain, dyspnea or syncope Respiratory: DENIES; Shortness of breath Gastrointestinal: DENIES; Rectal bleeding or melena. Genitourinary: DENIES; Dysuria (painful or difficult urination) Musculoskeletal: DENIES; Arthralgia (pain in a joint),; Skin: DENIES; Rash Neurological: DENIES; Loss of function or movement Psychiatric: DENIES; recent major life stressor, emotional problem, illicit drug use or abuse Endocrinology: DENIES; Weight change Hematologic/Lymphatic: SEE HPI, patient was told his hgb levels were low. DENIES; Abnormal bruising Allergic/Immunologic: DENIES; Urticaria (hives) Past Medical History Past Medical History CARDIAC: Positive Cardiac Disorders, Myocardial Infarction, Cardiac Arrhythmia, Atrial Fibrillation, Angina, Congestive Heart Failure and Hypertension RESPIRATORY: Positive Pneumonia GASTROINTESTINAL: Positive Gastrointestinal Disorders and Obesity GENITOURINARY: Positive Genitourinary Disorders, Renal Disease, Dialysis and Benign Prostatic Hyperplasia MUSCULOSKELETAL: Positive Musculoskeletal Disorders, Arthritis and Degenerative Joint Disease ENT: Positive Cataracts and Deafness ENDOCRINE: Positive Endocrine Disorders and Diabetes Mellitus Type 2 HEMATOLOGIC: Positive Blood Disorders and Anemia PSYCHO/SOCIAL: Positive Depression and Anxiety OTHER HISTORY: Positive Hospitalization, Shingles, Blood Transfusions and Measles Family History FAMILY HISTORY: Positive Family Cardiac Disorders Surgical History SURGICAL: Positive Coronary Stent, Pacemaker, Angiogram, Joint Replacement and Arthroscopy Social History SMOKING STATUS: Never smoker SECOND HAND EXPOSURE: No SUBSTANCE USE: marijuana ED Exam Narrative Physical exam: Physical Exam: General: The vital signs were reviewed. The patient is non-toxic, in no apparent distress and appears healthy with a patent airway, no respiratory distress and has no apparent circulatory problems. Head & Scalp: Normocephalic, atraumatic. Face: Appears normal and is without lesions, deformity. Ears: Left external pinna appears normal. Right external pinna appears normal. Eyes: The sclera is anicteric. No obvious photophobia. The Left and Right Orbit/Lid/Conjunctiva appears normal without swelling, discoloration or injection. Nose: The nose is without deformity, discharge or tenderness; Throat: Appears normal. The mucous membranes are pink and moist without exudates, redness or mass seen. The tongue appears normal. Neck: The neck is supple and no apparent mass or adenopathy. Chest: The chest wall is normal in size and symmetry and has no chest wall tenderness or crepitus. The patient displays normal ventilator effort without retractions, accessory muscle use and has adequate air movement bilaterally with no wheezes and no rales. Cardiovascular: Regular rate and rhythm; No murmurs, rubs, or gallops; Gastrointestinal: The abdomen appears normal. No obvious hernias or mass. The abdomen is soft and benign, non-distended, with no pain, no guarding and no rebound tenderness. Bowel sounds are present and normal sounding. No CVA tenderness. Genitourinary: Rectal exam was done is brown stool is guaiac negative. Back/Spine: Normal Spektor nontender Extremities/Musculoskeletal/lymphatic: The bilateral upper and lower extremities are warm. There is no evidence of arterial insufficiency. There is no evidence of venous insufficiency/edema. The patient spontaneously moves bilateral upper and lower extremities with no pain and no limitation of movement. There is no apparent, injury or trauma. Skin: The skin is warm, dry and intact. No rashes. No petechia. No purpura. No abnormal bruising. The color is appropriate with no cyanosis. Mental status/Psychiatric: Mental status is appropriate for age. The patient has no apparent delusions, visual hallucinations, no apparent audible hallucinations. The patient has no apparent suicidal thoughts/ideation and no apparent homicidal thoughts/ideation. Neurological: The patient is awake, alert, interactive, cordial, cooperative and is oriented to name and situation. The patient follows commands and answers historical question with no impairment. There is no visual disturbance apparent. The pupils are equal and reactive bilaterally with normal eye movements and no diplopia The bilateral upper and lower extremities have normal strength, normal range of motion and normal functioning. The gait, station and balance were not tested due to acuity General Limitations: Present no limitations General appearance: Present alert and in no apparent distress Course Quality Measures none Orders Category Date Time Status Dialysis [Hemodialysis] Urgent Care 09/15/24 09:14 Active EKG (ED ONLY) *Do not use* NOW Care 09/15/24 04:49 Completed Insert IV NOW Care 09/15/24 04:23 Active EKG (ED Only) Stat Exams 09/15/24 04:49 Draft BNP [B-Type Natriuretic Peptide] Stat Lab 09/15/24 04:42 Completed CBC Stat Lab 09/15/24 04:42 Completed CMP [Comprehensive Metabolic Panel] Stat Lab 09/15/24 04:42 Completed Ferritin Stat Lab 09/15/24 04:49 Completed Folate Stat Lab 09/15/24 04:49 Completed Iron Stat Lab 09/15/24 04:49 Completed PT [Prothrombin Time with INR] Stat Lab 09/15/24 04:42 Completed PTT [Partial Thromboplastin Time] Stat Lab 09/15/24 04:42 Completed Red Blood Cells Stat Lab 09/15/24 04:42 Results Total Iron Binding Capacity Stat Lab 09/15/24 04:49 Completed Troponin I Stat Lab 09/15/24 04:42 Completed Type and Screen Stat Lab 09/15/24 04:42 Results Vitamin B12 Stat Lab 09/15/24 04:49 Completed Albumin Human 25% Ivpb [Albuminar-25 Ivpb] Med 09/15/24 09:15 Active 25 gm in 100 ml IV PRN Albuterol/Ipratr Rt Treasure [Duoneb Rt Treasure] Med 09/15/24 04:48 Discontinued 3 ml INH X1 ONE Epoetin Jose-Epbx [Retacrit Inj] Med 09/15/24 16:00 Discontinued 10,000 unit SC X1 ONE Vital Signs Vital signs: Vital Signs Temperature 97.5 F 09/15/24 04:13 Pulse Rate 60 09/15/24 04:13 Respiratory Rate 18 09/15/24 04:13 Blood Pressure 128/71 09/15/24 04:13 Pulse Oximetry (%) 95 09/15/24 04:13 Oxygen Delivery Method Room Air 09/15/24 04:13 Pulse ox is 95% on room air which is adequate. Recheck / Abnormal Lab / Rx MDM Narrative MDM Narrative:: IDebi, am scribing for and in the presence of Dr. Macedo. Patient has several hemoglobins in the past week today is 7.5 with generalized weakness and increased swelling. I consulted the patient's coordinator of library services Dr. Azevedo and she feels this patient should be admitted for anemia workup. Also he will need to be dialyzed to get a unit of blood so hopefully have some more strength and energy that the patient is on Plavix but there is no evidence of bleeding anywhere and clinically there is none in the on rectal exam today. Also note the BNP is highly elevated consistent with his fluid overload condition Hospitalist was called and they will be admitting. Patient data External records reviewed:: [facility] previous records (I reviewed ED visit note from this morning. I reviewed ED visit on 09/13/2024. ) Clinical information provided by:: patient Social determinants that could affect healthcare access:: none Patient has the following chronic illnesses:: hypertension, diabetes, CKD, ESRD on HD, chronic back pain How is presenting disease/condition affected by chronic disease/condition?: exacerbated by Evaluation data The following diagnostics were reviewed and interpreted by me:: lab results and EKG tracing(s) Lab and/or radiology exams considered but not ordered:: None Interpretation Summary: As noted above. Medications / Prescriptions Medications or Prescriptions considered but not ordered:: None Medication administrations:: Medication Administration History Acetaminophen (Acetaminophen 325 Mg Tablet) 650 mg PO Q6H PRN PRN Reason: Fever >100.4 or pain Stop: 10/15/24 11:50 Acetaminophen (Acetaminophen 325 Mg Tablet) 650 mg PO Q6H PRN PRN Reason: PAIN SCALE 1-3 (mild Stop: 10/15/24 11:50 Hydrocodone Bitart/Acetaminophen (Hydrocodone/Apap 5/325 Tablet) 1 tab PO Q4HR PRN PRN Reason: PAIN SCALE 4-6 (Moderate Stop: 09/20/24 11:50 Amiodarone HCl (Amiodarone Hcl 200 Mg Tablet) 200 mg PO BID [facility] Stop: 10/15/24 13:59 Last Admin: 09/15/24 16:40 Dose: 200 mg Documented By: UT Aspirin (Aspirin Ec 81 Mg Tabec) 81 mg PO QDAY [facility] Stop: 10/15/24 11:59 Last Admin: 09/15/24 12:11 Dose: 81 mg Documented By: CANDIS Atorvastatin Calcium (Atorvastatin Calcium 20 Mg Tablet) 40 mg PO HS [facility] Stop: 10/15/24 20:59 Clopidogrel Bisulfate (Clopidogrel Bisulfate 75 Mg Tablet) 75 mg PO QDAY [facility] Stop: 10/15/24 11:59 Last Admin: 09/15/24 12:11 Dose: 75 mg Documented By: CANDIS Dextrose (Dextrose 50%-Water Inj 50 Ml Syringe) 25 ml IV Q15MIN PRN PRN Reason: BG 50-70 responsive npo pt Stop: 10/15/24 11:50 Dextrose (Dextrose 50%-Water Inj 50 Ml Syringe) 50 ml IV Q15MIN PRN PRN Reason: BG <50 OR BG <70 & pt unresponsive Stop: 10/15/24 11:50 Glucagon (Glucagon Inj 1 Mg Vial) 1 mg IM Q15MIN PRN PRN Reason: BG <70, and no IV access Albumin Human (Albuminar-25 Ivpb) 25 gm in 100 mls @ 100 mls/min IV PRN PRN PRN Reason: DIALYSIS Insulin Human Lispro (Insulin Lispro (Admelog) 1 Unit/0.01 Ml Unit) 0 unit SC ACHS VIKRAM; Protocol Stop: 10/15/24 16:59 Last Admin: 09/15/24 17:26 Dose: 1 unit Documented By: UT Co-signed By: ANDREW Pantoprazole Sodium (Pantoprazole Inj 40 Mg Vial) 40 mg IVP QDAY VIKRAM Stop: 10/16/24 08:59 Sennosides (Senna Tablet) 2 tab PO BID PRN; Protocol PRN Reason: CONSTIPATION Stop: 10/15/24 11:50 Discontinued Medications Albuterol/Ipratropium (Albuterol/Ipratropium (Duoneb) Rt Treasure 3 Ml Nebu) 3 ml INH X1 ONE Stop: 09/15/24 04:49 Last Admin: 09/15/24 04:59 Dose: 3 ml Documented By: EMILY Epoetin Jose (Epoetin Jose-Epbx 3,000 Unit/Ml Vial (Esrd)) 10,000 unit SC X1 ONE Stop: 09/15/24 16:01 Epoetin Jose (Epoetin Jose-Epbx Inj 10,000 Unit/Ml Vial (Esrd)) 10,000 unit SC X1 ONE Stop: 09/15/24 13:46 Last Admin: 09/15/24 15:30 Dose: 10,000 unit Documented By: MM See above Consultations Consultation(s) initiated? (list below): Yes Consultation #1 (Physician, Specialty, Details): I spoke with patients coordinator of library services Dr. Azevedo. Discussed patients HPI, ED course, exam findings, labs results. Time: 07:30 Consultation #2 (Physician, Specialty, Details): I updated Dr. Azevedo on the hemoccult results. Time: 08:55 Diagnosis Recheck Differential Diagnosis: other (anemia, GI bleed, anemia in renal failure.) Most likely diagnosis given after review of the tests above:: Fluid overload ESRF Acute anemia Dialysis patient Elevated troponin Admission Indicated Admission indicated?: indicated Admission Request Was there a request for admission?: No Disposition Plan Disposition Plan: Admit Discharge Plan Plan Patient Disposition: Admit Acute Care w/in Hospital Disposition Comment: Hospitalist to admit coordinator of library services to consult Problem List Clinical Impression: Fluid overload, ESRF (end stage renal failure), Acute anemia, Dialysis patient, Elevated troponin
[2024-09-15 08:41] LABS: Folate > 24.00 ng/mL (>5.38); Vitamin B12 639 pg/mL (211-911)
[2024-09-15 09:42] LABS: Iron 62 mcg/dL (65-175)
--- NOTE | 2024-09-15 11:52 | ESHP_ITS ---
<Statement entered by Braden Donato MD - 09/15/24 15:22> This patient is a 74-year-old male with past medical history of CAD with recent stent placement in July 2024, ESRD on dialysis Tuesdays and Saturdays since 2022, CHF, type 2 diabetes, A-fib with ICD presented with possible acute blood loss observed in dialysis center. Patient was found to have an hemoglobin of 7.3. Patient reported that he has been feeling generalized weakness with worsening dyspnea and lower extremity swelling. Patient is admitted for fluid overload state related to CHF and ESRD and will be receiving dialysis today per nephrology recommendations. Certified Composites Technician recommended to transfuse him 1 unit PRBC and follow-up with post H&H and keep hemoglobin above 8?8.5 given significant cardiac history. Continues home medications as prescribed. Holding antihypertensives given soft blood pressure. Will continue with hemodialysis and transfusing 1 unit and follow-up with post H&H. Electrolytes were managed. All labs and orders were reviewed. I saw and examined the patient, and I agree with current management stated by Dr Boubacar MD,PGY1. Plan of care was discussed with the attending physician and resident physician. Disclaimer: Despite multiple revisions, due to the dictation software being used, the document bellow may not be free of grammatical errors including phonetic/typographic errors. However, this does not deter from our commitment to providing health care in the patient's best interest in mind. Dr. Tanmay MD, PGY 2 Documentation for date of: 09/15/24 HPI History of Present Illness Chief complaint: SOB History of present illness: HPI: Giancarlo Martino is a 74 year old male with past medical history of CAD with multiple stents, ESRD(on dialysis Thursday and Thursday since 2022), HFrEF [35-40%], NIDDM type II [6], atrial flutter, and ICD placement. Presented today with a chief complaint of SOB. Patient states that for the past couple of weeks he has had progressively worsening SOB associated with generalized weakness. He was assessed by his primary care doctor who made arrangements for home oxygen, but he did not receive it. He also had progressively worsening lower extremity edema during the same time. Patient denies any chest pain/pressure or palpitations. Patient's last dialysis session was Thursday and from his labs his hemoglobin was found to be 7 and he was told to present to the ED for a blood transfusion. He presented to the ED but did not want to wait and absconded. He again presented today now with worsening SOB. He denies experiencing dizziness, N/V, fever, cough, and change in appetite. Of note, was admitted to [facility] in July 2024 for NSTEMI type 1 which led to stent placement and he was discharged home on plavix and aspirin. On arrival to hospital he was found to have BP of 128/71, HR of 60, RR of 18. Labs showed Hgb of 7.5, Hct of 23.9, MCV of 106, BUN o f62, Cr 4.4, GFR of 14, Trop of 0.079( which has gone down from 09/13/2024), BNP of 2630(was 2262 on 09/13/2024). Patient had CXR today which showed flash pulmonary edema with no signs of consolidation. Patient will be admitted for volume overload requiring hemodialysis. Review of Systems Review of Systems Narrative Review of Systems: GENERAL: Denies fever/chills or diaphoresis. HEENT: Denies headaches or visual changes. Denies discharge. Neuro: Denies difficulty speaking. CARDIO: As above PULM: As above GI: Denies abdominal pain, N/V/C/D. Reports having BMs. URO: Denies buring/itching/pain/urinary changes. MSK/EXT/SKIN: Denies joint/skeletal/muscle pain, issues/changes in upper or lower extremities, itchiness, or superficial pain. PSYCH: Cooperative, pleasant mood & affect. The rest of the review of systems is otherwise negative. Past Medical History Past Medical History Comments PMH COMMENT: PMH: Positive for HFrEF ejection fraction 35%, status post pacemaker/ICD, coronary artery disease status post stents 2022, atrial fibrillation, insulin-dependent diabetes mellitus, end-stage renal disease, BPH and normocytic anemia PSHx: Cardiac cath, 2 spinal fusion surgeries, bilateral knee replacement with implants, ICD/pacemaker placement, cataract surgeries Allergies: No known allergies Social history: -Smoking: History of heavy smoking, 1 pack/day for 10 years in the past and stopped 30 years ago -Alcohol Use: Occasional alcohol use in the past -Illicit Drug Use: Denies using cannabinoids now, reports using melatonin -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 Elderly male on oxygen via nasal cannula. CHEST: Symmetrical, atraumatic, and with equal expansion , Nontender on palpation no deformity and no crepitus. CARDIOVASCULAR: Heart regular rhythm no murmur or gallop rub or extra beats. LUNGS: Wheezes and crackles noted throughout all lung bermudez, reduced air entry throughout all lung bermudez as well ABDOMEN: Soft, obese , nontender to palpation, no guarding or rebound tenderness.? There are no abnormal masses palpated.? Active and normal bowel sounds. EXTREMITIES: 2+ edema to lower extremities up to knees bilaterally, scrotal edema -- Patient was seen and discussed with attending physician, Dr. Pérez and resident physician, , PGY1 and Dr. Donato, PGY 2 Edgardo Ramos Medical student I have seen and examined the patient with medical student Edgardo Ramos , agree with his findings and have edited it with my assessment as well. Adrien Yousif MD PGY1 Results: Labs 09/19/24 05:12 09/19/24 05:12 Labs: Short CBC 09/15/24 Range/Units 04:42 WBC 7.2 (3.8-10.6) Thou/mm3 Hgb 7.5 L (13.5-16.0) g/dL Hct 23.9 L (41.0-53.0) % Plt Count 213 (140-440) Thou/mm3 BMP 09/15/24 04:42 Sodium 139 Potassium 4.6 D Chloride 103 Carbon Dioxide 23.8 BUN 62 H Creatinine 4.4 H* D Glucose 220 H Calcium 9.2 Cardiac Enzymes 09/15/24 Range/Units 04:42 Troponin I 0.079 H* (0.0-0.045) ng/mL Liver Function 09/15/24 Range/Units 04:42 Total Bilirubin 0.3 (0.3-1.2) mg/dL AST 49 H (0-34) U/L ALT 57 H (10-49) U/L Alkaline Phosphatase 170 H (46-116) U/L Albumin 3.9 (3.4-4.8) gm/dL Quality Measures Quality Measures none Advance care planning discussed with:: other Medications Home Medications and Allergies Home Medications ?Medication ?Instructions ?Recorded ?Confirmed ?Type amiodarone 200 mg tablet 200 mg PO BID 07/13/23 09/15/24 History vitamin B complex-vitamin C-folic 1 tab PO QDAY 07/13/23 09/15/24 History acid 0.8 mg tablet (Homa-Franci) doxazosin 1 mg tablet 2 mg PO QDAY 09/16/23 09/15/24 History hydrocodone 10 mg-acetaminophen 10 - 325 tab PO Q6H PRN Pain 09/18/23 09/15/24 History 325 mg tablet albuterol sulfate 90 mcg/actuation 2 puff inhalation QID PRN sob 09/07/24 09/15/24 History aerosol inhaler pramipexole 0.5 mg tablet 0.5 mg PO BID 09/07/24 09/15/24 History aspirin 81 mg capsule 81 mg PO QDAY 09/15/24 09/15/24 History atorvastatin 40 mg tablet 40 mg PO QPM 09/15/24 09/15/24 History clopidogrel 75 mg tablet 75 mg PO QDAY 09/15/24 09/15/24 History furosemide 20 mg tablet 20 mg PO QDAY 09/15/24 09/15/24 History lactulose 10 gram/15 mL oral 10 g PO QDAY 09/15/24 09/15/24 History solution melatonin 10 mg capsule 10 mg PO HS PRN Insomnia 09/15/24 09/15/24 History Allergies Allergy/AdvReac Type Severity Reaction Status Date / Time No Known Allergies Allergy Verified 09/17/24 12:30 Visit Medications Epoetin Jose (Epoetin Jose-Epbx 3,000 Unit/Ml Vial (Esrd)) 10,000 unit SC X1 ONE Stop: 09/15/24 16:01 Albumin Human (Albuminar-25 Ivpb) 25 gm in 100 mls @ 100 mls/min IV PRN PRN PRN Reason: DIALYSIS Discontinued Medications Albuterol/Ipratropium (Albuterol/Ipratropium (Duoneb) Rt Treasure 3 Ml Nebu) 3 ml INH X1 ONE Stop: 09/15/24 04:49 Last Admin: 09/15/24 04:59 Dose: 3 ml Assessment & Plan Plan Giancarlo Martino is a 74 year old male with past medical history of CAD with multiple stents, ESRD(on dialysis Thursday and Thursday since 2022), HFrEF [35-40%], NIDDM type II [6], atrial flutter, and ICD placement. Presented today with a chief complaint of SOB. Patient will be admitted for volume overload requiring hemodialysis. 1. Volume overload secondary to inadequate fluid removal from hemodialysis 2. End-stage renal disease on hemodialysis via right radial AV fistula [Tuesdays/Saturdays] On admission patient had severe SOB at rest and unable to complete full sentences. Chest x-ray significant for bilateral flash pulmonary edema without any signs of consolidation. Plan: ? Strict input output charting ? 2G sodium restricted renal diet ? 1500 cc/day fluid restriction ? Daily weights ? For emergent hemodialysis ?Nephrology, Dr Azevedo consulted and is closely following the case. Appreciate recommendations 3. Acute decompensated chronic systolic congestive heart failure with reduced ejection fraction [35-40%] On admission patient had severe SOB at rest and unable to complete full sentences. On exam patient had wheezing and crackles heard throughout all lung bermudez bilaterally. Also had lower extremity 2+ pitting edema up to knees bilaterally with scrotal edema. Chest x-ray significant for bilateral flash pulmonary edema without any signs of consolidation. BNP elevated at 2630 which is above patient's baseline of 900s from chart review. Patient's home diuretic furosemide 20 Mg p.o. daily Plan: ? Strict input output charting ? 2G sodium restricted renal diet ? 1500 cc/day fluid restriction ? Daily weights ?Beta-nichol on hold for now in light of acute heart failure exacerbation ? Patient's diuretics on hold for now in light of emergent hemodialysis to give blood pressure room. ? GDMT also on hold for now to give blood pressure room for extra hemodialysis for additional fluid removal. ?Cardiology, Dr. Armani Morgan consulted and is closely following the case. Appreciate recommendations 4. ICD in situ due to risk of sudden cardiac 5. Coronary artery disease s/p 3 stents 6. History of atrial flutter 7. Hyperlipidemia Patient had 2 stents coronary stents last year and 1 recent stent July 2024. Patient on dual antiplatelet therapy with aspirin and Plavix. [id number]: 5 points; 7.2% stroke risk per year. Plan: ? Continue home medication amiodarone 200 Mg p.o. twice daily - Remumed home medication atorvastatin 40 mg po HS 8. Mlv-fwmqson-ntvjogjgx diabetes type 2 [6] Patient's home medication Jardiance 12.5 Mg Plan: ? Sliding scale insulin to cover for any glucose spikes 9. Essential hypertension On admission patient's BP 128/71. Patient's home medication hydralazine 25 Mg p.o. twice daily Plan: ? Antihypertensives on hold for now to give blood pressure room for dialysis Health maintenance: Disposition: For emergent hemodialysis. Cardiology and nephrology consults Diet: cardiac and renal Lines: pIVs GI Prophylaxis:None Thrombo Prophylaxis: SCDs Code status: FULL CODE Plan of care discussed with Attending Dr. Pérez and PGY2 Dr. Tanmay Yousif MD PGY 1 Attending Provider Attestation/Addendum Preston, Niecy Pérez, , attest that I was physically present for the eric portions of the service and evaluated the patient with the resident and I reviewed and discussed the case with the resident and agree with the resident's findings and plans of care as documented above Patient is a 74 year old male with Pmhx of CAD s/p PCI and ESRD on HD on Thursday and Thursday who was sent to ED by PCP after he was found to be anemic. He has been complaining of worsening dyspnea on exertion and decreased physical activity. Patient has been complaining of worsening b/l LE edema as well. Patient continues to have urinary output and takes lasix 20mg PO daily. He denies any active fevers or chills. Hgb is noted to be downtrending. However, patient denies any hematochezia, melena or hematuria. FOBT was negative in ED. Patient denies any chest pain, fevers, chills, nausea or vomiting. Nephrology was consulted from ED and has ordered urgent dialysis. Fistula area appears clean, dry and intact. Will continue with lasix as well. EPO was given in ED due to anemia. Suspect anemia likely 2/2 chronic disease and ESRD. Will admit for further diuresis and dialysis. Recent echocardiogram was done in June revealing mild global hypokinesis. Mild LVH, EF 35-40%. Mild RV dilated. Normal RV function. Severe biatrial dilatation. Will continue with home meds at this time and continue with treatment for acute CHF exacerbation. Will consult cardiology as well.
[2024-09-15] MEDS: ASPIRIN EC 81 MG TABEC PO (12:11)
[2024-09-15] MEDS: CLOPIDOGREL BISULFATE 75 MG TABLET PO (12:11)
--- NOTE | 2024-09-15 12:12 | PC.NURSE ---
DR. DEMPSEY AT BEDSIDE
--- NOTE | 2024-09-15 13:59 | PD.RESCONSUL ---
HPI Data of Consult Consult date: 09/15/24 Requesting Physician: Niecy Pérez DO Admitting Provider: Niecy Pérez DO Attending Provider: Niecy Pérez DO Primary Care Provider: Glynn Mckenzie MD Consult Narrative Reason for consult: ESRD on dialysis, fluid overload History of present illness: The patient is a 74-year old male with a previous medical history of end-stage renal disease on hemodialysis on Thursday and Thursday, CAD status post multiple stent placement, last PCI with stent placement 08/09/24, s/p pacemaker placement, CHF, type 2 diabetes, A-fib, who came to the ED with weakness, shortness of breath and increased leg edema. Patient reports he is supposed to receive home oxygen, and does not use it yet. He came to the ED a few days ago, was sent from the dialysis center due to low hemoglobin level, was supposed to receive blood transfusion, but left before receiving it. He was sent by his PCP again to receive blood transfusion. Last dialysis session was on Thursday this week. ED course: Blood pressure 128/71, saturating well on 2 L of nasal cannula, afebrile. Labs showed hemoglobin 7.5, sodium 139, potassium 4.4, BUN 62, creatinine 4.4, EGFR 16, glucose 228, AST 49, ALT 57. Troponin I was +0.135 on 09/13/2024, downtrending to 0.079 on 09/15/2024, BNP 2630. Chest x-ray 09/13/2024 showed mild CHF and significant bilateral pneumonia. EKG showed atrial and ventricular pacing. Patient started on home clopidogrel and aspirin. Consumer Science Teacher Dr. Azevedo was consulted due to fluid overload and anemia caused by ESRD. Due to fluid overload patient underwent emergent dialysis with goal to remove 3 L of fluid and transfuse 1 unit of blood. cc:: cc: Niecy Pérez DO Review of Systems Review of Systems Narrative Review of Systems: General: Denies weight loss, fever and chills. HEENT: Denies changes in vision and hearing. Resp: Reports SOB, denies cough and wheezing. CVS: Denies palpitations and CP. GI: Denies abdominal pain, nausea, vomiting and diarrhea. : Denies dysuria and urinary frequency. MSK: Denies myalgia and joint pain. Denies rash and pruritus. Neuro: Denies headache and syncope. Psych: Denies recent changes in mood. Denies anxiety and depression. Past Medical History Past Medical History CARDIAC: Positive Cardiac Disorders, Myocardial Infarction, Cardiac Arrhythmia, Atrial Fibrillation, Angina, Congestive Heart Failure and Hypertension RESPIRATORY: Positive Pneumonia GASTROINTESTINAL: Positive Gastrointestinal Disorders and Obesity GENITOURINARY: Positive Genitourinary Disorders, Renal Disease, Dialysis and Benign Prostatic Hyperplasia MUSCULOSKELETAL: Positive Musculoskeletal Disorders, Arthritis and Degenerative Joint Disease ENT: Positive Cataracts and Deafness ENDOCRINE: Positive Endocrine Disorders and Diabetes Mellitus Type 2 HEMATOLOGIC: Positive Blood Disorders and Anemia PSYCHO/SOCIAL: Positive Depression and Anxiety OTHER HISTORY: Positive Hospitalization, Shingles, Blood Transfusions and Measles Family History FAMILY HISTORY: Positive Family Cardiac Disorders Surgical History SURGICAL: Positive Coronary Stent, Pacemaker, Angiogram, Joint Replacement and Arthroscopy Social History SMOKING STATUS: Never smoker SECOND HAND EXPOSURE: No SUBSTANCE USE: marijuana Exam Vital Signs Temp Pulse Resp BP Pulse Ox O2 Del Method O2 Flow Rate 97.3 F 59 L 20 142/74 H 97 Nasal Cannula 2 09/15/24 12:44 09/15/24 13:30 09/15/24 12:57 09/15/24 13:30 09/15/24 12:57 09/15/24 12:34 09/15/24 12:57 Narrative Exam Physical Exam General: Awake and in no acute distress. Conversational and non-toxic appearing. Decreased hearing. HEENT: Normocephalic, atraumatic, mucous membranes moist. Heart: Regular rate and rhythm, no murmurs. Lungs: Clear to auscultation with no wheezing or crackles. Abdomen: Soft, nondistended, nontender, positive bowel sounds. ?No guarding or rebound tenderness. Neurologic: Alert and oriented x3, no gross neurological deficit, and patient able to move all 4 extremities. Extremities: 2+ bilateral leg edema. Skin: No rash or ecchymoses. Results Labs 09/16/24 05:35 09/16/24 05:35 Labs: Short CBC 09/15/24 Range/Units 04:42 WBC 7.2 (3.8-10.6) Thou/mm3 Hgb 7.5 L (13.5-16.0) g/dL Hct 23.9 L (41.0-53.0) % Plt Count 213 (140-440) Thou/mm3 BMP 12/19/24 04:42 Sodium 139 Potassium 4.6 D Chloride 103 Carbon Dioxide 23.8 BUN 62 H Creatinine 4.4 H* D Glucose 220 H Calcium 9.2 Cardiac Enzymes 09/15/24 Range/Units 04:42 Troponin I 0.079 H* (0.0-0.045) ng/mL Liver Function 09/15/24 Range/Units 04:42 Total Bilirubin 0.3 (0.3-1.2) mg/dL AST 49 H (0-34) U/L ALT 57 H (10-49) U/L Alkaline Phosphatase 170 H (46-116) U/L Albumin 3.9 (3.4-4.8) gm/dL Quality Measures Quality Measures VTE prophylaxis Advance care planning discussed with:: other Medications Home Medications and Allergies Home Medications ?Medication ?Instructions ?Recorded ?Confirmed ?Type amiodarone 200 mg tablet 200 mg PO BID 07/13/23 09/15/24 History vitamin B complex-vitamin C-folic 1 tab PO QDAY 07/13/23 09/15/24 History acid 0.8 mg tablet (Homa-Franci) atorvastatin 40 mg tablet 40 mg PO QPM 09/16/23 09/15/24 History clopidogrel 75 mg tablet (Plavix) 75 mg PO QDAY 09/16/23 09/15/24 History doxazosin 1 mg tablet 2 mg PO QDAY 09/16/23 09/15/24 History hydrocodone 10 mg-acetaminophen 10 - 325 tab PO Q6H PRN Pain 09/18/23 09/15/24 History 325 mg tablet furosemide 20 mg tablet 20 mg PO 1XD 07/23/24 09/15/24 History albuterol sulfate 90 mcg/actuation 2 puff inhalation QID PRN sob 09/07/24 09/15/24 History aerosol inhaler empagliflozin 10 mg tablet 25 mg PO QDAY 09/07/24 09/15/24 History (Jardiance) hydralazine 50 mg tablet 25 mg PO TID 09/07/24 09/15/24 History pramipexole 0.5 mg tablet 0.5 mg PO BID 09/07/24 09/15/24 History amiodarone 200 mg tablet 200 mg PO 2XD 09/15/24 09/15/24 History aspirin 81 mg capsule 81 mg PO QDAY 09/15/24 09/15/24 History atorvastatin 40 mg tablet 40 mg PO QPM 09/15/24 09/15/24 History clopidogrel 75 mg tablet 75 mg PO QDAY 09/15/24 09/15/24 History empagliflozin 10 mg tablet 10 mg PO QDAY 09/15/24 09/15/24 History (Jardiance) furosemide 20 mg tablet 20 mg PO QDAY 09/15/24 09/15/24 History lactulose 10 gram/15 mL oral 10 g PO QDAY 09/15/24 09/15/24 History solution melatonin 10 mg capsule 10 mg PO HS PRN Insomnia 09/15/24 09/15/24 History vitamin B complex-vitamin C-folic 1 tab PO QDAY 09/15/24 09/15/24 History acid 0.8 mg tablet (Homa-Franci) Allergies Allergy/AdvReac Type Severity Reaction Status Date / Time No Known Allergies Allergy Verified 09/13/24 10:54 Visit Medications Acetaminophen (Acetaminophen 325 Mg Tablet) 650 mg PO Q6H PRN PRN Reason: Fever >100.4 or pain Stop: 10/15/24 11:50 Acetaminophen (Acetaminophen 325 Mg Tablet) 650 mg PO Q6H PRN PRN Reason: PAIN SCALE 1-3 (mild Stop: 10/15/24 11:50 Hydrocodone Bitart/Acetaminophen (Hydrocodone/Apap 5/325 Tablet) 1 tab PO Q4HR PRN PRN Reason: PAIN SCALE 4-6 (Moderate Stop: 09/20/24 11:50 Amiodarone HCl (Amiodarone Hcl 200 Mg Tablet) 200 mg PO BID [facility] Stop: 10/15/24 13:59 Aspirin (Aspirin Ec 81 Mg Tabec) 81 mg PO QDAY VIKRAM Stop: 10/15/24 11:59 Last Admin: 09/15/24 12:11 Dose: 81 mg Clopidogrel Bisulfate (Clopidogrel Bisulfate 75 Mg Tablet) 75 mg PO QDAY [facility] Stop: 10/15/24 11:59 Last Admin: 09/15/24 12:11 Dose: 75 mg Dextrose (Dextrose 50%-Water Inj 50 Ml Syringe) 25 ml IV Q15MIN PRN PRN Reason: BG 50-70 responsive npo pt Stop: 10/15/24 11:50 Dextrose (Dextrose 50%-Water Inj 50 Ml Syringe) 50 ml IV Q15MIN PRN PRN Reason: BG <50 OR BG <70 & pt unresponsive Stop: 10/15/24 11:50 Glucagon (Glucagon Inj 1 Mg Vial) 1 mg IM Q15MIN PRN PRN Reason: BG <70, and no IV access Albumin Human (Albuminar-25 Ivpb) 25 gm in 100 mls @ 100 mls/min IV PRN PRN PRN Reason: DIALYSIS Insulin Human Lispro (Insulin Lispro (Admelog) 1 Unit/0.01 Ml Unit) 0 unit SC ACHS VIKRAM; Protocol Stop: 10/15/24 16:59 Pantoprazole Sodium (Pantoprazole Inj 40 Mg Vial) 40 mg IVP QDAY VIKRAM Stop: 10/16/24 08:59 Sennosides (Senna Tablet) 2 tab PO BID PRN; Protocol PRN Reason: CONSTIPATION Stop: 10/15/24 11:50 Discontinued Medications Albuterol/Ipratropium (Albuterol/Ipratropium (Duoneb) Rt Treasure 3 Ml Nebu) 3 ml INH X1 ONE Stop: 09/15/24 04:49 Last Admin: 09/15/24 04:59 Dose: 3 ml Epoetin Jose (Epoetin Jose-Epbx 3,000 Unit/Ml Vial (Esrd)) 10,000 unit SC X1 ONE Stop: 09/15/24 16:01 Epoetin Jose (Epoetin Jose-Epbx Inj 10,000 Unit/Ml Vial (Esrd)) 10,000 unit SC X1 ONE Stop: 09/15/24 13:46 Assessment & Plan Plan The patient is a 74-year old male with a previous medical history of end-stage renal disease on hemodialysis on Thursday and Thursday, CAD status post multiple stent placement, last PCI with stent placement 08/09/24, s/p pacemaker placement, CHF, type 2 diabetes, A-fib, who came to the ED with weakness, shortness of breath and increased leg edema. Consumer Science Teacher Dr. Azevedo was consulted due to fluid overload and anemia caused by ESRD. Due to fluid overload patient underwent emergent dialysis with goal to remove 3 L of fluid and transfuse 1 unit of pRBC. #ESRD on HD () #Chronic severe anemia #Acute hypoxic respiratory failure, improving Most likely due to fluid overload. Patient denies eating salty food and was inquiring about how to count fluid intake. Patient was explained that he needs to restrict fluid and he was also suggested to do dialysis 3 times per week. Plan: - emergent dialysis with 3 L fluid removal - 1 unit of pRBC, post transfusion H&H - api product manager consult - erythropoetin [id number] U - strict I's and O's - fluid restriction 1500 ml - renal diet - monitor CBC, transfuse if Hgb <7 #CAD s/p stent, pacemaker placement #CHF #A-fib #T2DM - management per primary team Plan of care discussed with attending Dr. Azevedo. Eliane Baugh MD, PGY 1. Attending Provider Attestation/Addendum Patient seen and examined with resident physician Dr. Del Rio. Note reviewed, agree with findings and recommendations. Patient presented with shortness of breath, symptomatic anemia. Noted to have fluid overload. GI consultation requested. His hemoglobin in the dialysis unit was 6.9. Stool guaiac negative. If GI workup is negative we will request hematology consultation as an outpatient. Patient currently seen on dialysis. Tolerating dialysis without any problems. Hemodialysis for 3 hours, 2K, ultrafiltration 2-3 L, Epogen 6000, no heparin ordered. Plan of care discussed with the dialysis nurse. Please see dialysis flowsheet for further details. Thank you Dr. Pérez for allowing me to participate in the care of Mr. Martino
--- NOTE | 2024-09-15 14:19 | PC.CC ---
Patient is a 74 year-old male who presents to the hospital for fluid overload, ESRD on dialysis and CAP. Tanvi BELL made [id number] contact with patient. ASW introduced self, role, and reason for visit. Patient appeared alert and oriented to self, location, and situation. Patient was pleasant and engaged in initial assessment. Patient confirmed information on demographics and reports to living at home with his , Tiffanie Martino . At the residence also lives his daughter, Katerina Pratt . At home patient uses a can and walker to help with ambulation; however, shared he has been struggling with ambulation due to physical weakness. Patient is able to complete his own ADLs. Patient was recently ordered oxygen by his primary care provider 3 days ago but has ot received it. The patient stated he will be on 2L. Patient receives primary care with Dr. Mckenzie and uses [facility]. Upon discharge the patient plan to return home. family services coordinator to follow-up for any discharge needs.
[2024-09-15 14:43] LABS: Ferritin 607 ng/mL (10.5-307.3); Total Iron Binding Capacity 265 mcg/dL (250-425)
--- NOTE | 2024-09-15 15:00 | PC.NURSE ---
CALLED REPORT TO MAICO BOWMAN, ALL QUESTIONS ANSWERED.
--- NOTE | 2024-09-15 15:04 | ESCONSULT_ITS ---
<Statement entered by Cassie Morgan MD - 09/15/24 22:28> I personally have known this patient for several years recently had a PCI stent placement complex PCI of the right coronary artery has chronic anemia secondary to CKD also had fluid overload because missed his dialysis came to the hospital fluid overload as well as anemia because of known CAD ischemic heart disease recent stent placement like to see hemoglobin above 8 g and is recommending a PRBC transfusion also history of paroxysmal atrial flutter fibrillation usually maintaining sinus rhythm on amiodarone we will continue the amiodarone and rest the medication. DAPT therapy aspirin Plavix will be continued for next 11 months because of complex PCI multivessel stent placement. I evaluated the patient along with resident physician agree with the treatment plan recommendation as formulated and documented by Dr. Goodman PGY2 HPI Data of Consult Requesting Physician: Niecy Pérez DO Admitting Provider: Niecy Pérez DO Attending Provider: Niecy Pérez DO Primary Care Provider: Glynn Mckenzie MD Consult Narrative History of present illness: 74 years old male patient with significant medical history for HFrEF ejection fraction 35%, s/p ICD pacemaker, CAD s/p multivessel stents, Afib, DM2, ESRD (on HD , key filer Dr. Azevedo), BPH and normocytic anemia presented to the ED with complaint of shortness of breath, lower extremity edema and weakness for the last week. Patient was recently sent to ED from dialysis center when his HgB was found to be low at 7.3. At that time he was also found to have pneumonia. Patient denies cough, chest pain/pressure, fever, chills, NVD or other associated symptoms. Today's labs were significant for HgB 7.5, MCV 106, Hct 23.9, BUN 62, Pipeline Integrity Engineer 4.4, eGFR 14, Trop 0.79, BNP 2630. Chest x-ray (from 09/13/24) mild heart failure and significant b/l pneumonia. EKG showed atrial and ventricular pacemaker with rate in the 60s. Patient admitted for AHRF secondary to fluid overload, due to ESRD and CHF. Medical Hx: HFrEF (35%), SP ICD pacemaker, CAD SP multivessel stents, A-fib, IDDM 2, ESRD ( with Dr. Morgan Son), normocytic anemia and BPH Medications: Amiodarone 200 mg, atorvastatin 40 mg, Plavix 75 mg, doxazosin 2 mg, Lasix 20 mg, hydralazine 25 mg, Jardiance 25 mg, lactulose 10 g, metoprolol XL 50 mg, pramipexole 0.5 mg Surgical Hx: Spinal fusion, bilateral knee replacement implants, multivessel PCI, ICD pacemaker, cataracts Social Hx: Former cigarette smoker 2 pack years for 30 years, social alcohol drinker, denies using other illicit drugs Allergies: NKDA CODE STATUS: Full code 09/15/24: Patient seen and examined during dialysis. Patient denies having cough but has been endorsing weakness and shortness of breath on exertion last few days. Patient states that he is doing better right now. Would recommend continuing amiodarone for A-fib flutter, continue aspirin and Plavix and transfuse PRBC to keep hemoglobin at 8. cc:: cc: Niecy Pérez DO Review of Systems Review of Systems Systems Reviewed: All systems reviewed, normal except as documented Exam Vital Signs Temp Pulse Resp BP Pulse Ox O2 Del Method O2 Flow Rate 97.3 F 60 20 125/71 97 Nasal Cannula 2 09/15/24 12:44 09/15/24 15:00 09/15/24 12:57 09/15/24 15:00 09/15/24 12:57 09/15/24 12:34 09/15/24 12:57 Narrative Exam Constitutional: well-developed, well-nourished, in no acute distress, lying in bed HEENT: NCAT, EOMI, reactive round pupils b/l, patent nares b/l, moist mucous membranes Lung: CTAB, no wheezing, no rhonchi Heart: Regular S1S2, no murmurs, gallops, or rubs Abdomen: Soft, non-distended, non-tender, bowel sounds present throughout Extremities: No cyanosis, clubbing, +2 edema of legs, LE pulses present b/l Neurologic: No focal sensory or motor deficits noted, AOx3, appropriate affect Skin: Warm, dry, no lesions or rashes noted Results Labs 09/15/24 16:11 09/15/24 04:42 Labs: Short CBC 09/15/24 Range/Units 04:42 WBC 7.2 (3.8-10.6) Thou/mm3 Hgb 7.5 L (13.5-16.0) g/dL Hct 23.9 L (41.0-53.0) % Plt Count 213 (140-440) Thou/mm3 BMP 09/15/24 04:42 Sodium 139 Potassium 4.6 D Chloride 103 Carbon Dioxide 23.8 BUN 62 H Creatinine 4.4 H* D Glucose 220 H Calcium 9.2 Cardiac Enzymes 09/15/24 Range/Units 04:42 Troponin I 0.079 H* (0.0-0.045) ng/mL Liver Function 09/15/24 Range/Units 04:42 Total Bilirubin 0.3 (0.3-1.2) mg/dL AST 49 H (0-34) U/L ALT 57 H (10-49) U/L Alkaline Phosphatase 170 H (46-116) U/L Albumin 3.9 (3.4-4.8) gm/dL Quality Measures Quality Measures VTE prophylaxis Advance care planning discussed with:: other Medications Home Medications and Allergies Home Medications ?Medication ?Instructions ?Recorded ?Confirmed ?Type amiodarone 200 mg tablet 200 mg PO BID 07/13/23 09/15/24 History vitamin B complex-vitamin C-folic 1 tab PO QDAY 07/13/23 09/15/24 History acid 0.8 mg tablet (Homa-Franci) atorvastatin 40 mg tablet 40 mg PO QPM 09/16/23 09/15/24 History clopidogrel 75 mg tablet (Plavix) 75 mg PO QDAY 09/16/23 09/15/24 History doxazosin 1 mg tablet 2 mg PO QDAY 09/16/23 09/15/24 History hydrocodone 10 mg-acetaminophen 10 - 325 tab PO Q6H PRN Pain 09/18/23 09/15/24 History 325 mg tablet furosemide 20 mg tablet 20 mg PO 1XD 07/23/24 09/15/24 History albuterol sulfate 90 mcg/actuation 2 puff inhalation QID PRN sob 09/07/24 09/15/24 History aerosol inhaler empagliflozin 10 mg tablet 25 mg PO QDAY 09/07/24 09/15/24 History (Jardiance) hydralazine 50 mg tablet 25 mg PO TID 09/07/24 09/15/24 History pramipexole 0.5 mg tablet 0.5 mg PO BID 09/07/24 09/15/24 History amiodarone 200 mg tablet 200 mg PO 2XD 09/15/24 09/15/24 History aspirin 81 mg capsule 81 mg PO QDAY 09/15/24 09/15/24 History atorvastatin 40 mg tablet 40 mg PO QPM 09/15/24 09/15/24 History clopidogrel 75 mg tablet 75 mg PO QDAY 09/15/24 09/15/24 History empagliflozin 10 mg tablet 10 mg PO QDAY 09/15/24 09/15/24 History (Jardiance) furosemide 20 mg tablet 20 mg PO QDAY 09/15/24 09/15/24 History lactulose 10 gram/15 mL oral 10 g PO QDAY 09/15/24 09/15/24 History solution melatonin 10 mg capsule 10 mg PO HS PRN Insomnia 09/15/24 09/15/24 History vitamin B complex-vitamin C-folic 1 tab PO QDAY 09/15/24 09/15/24 History acid 0.8 mg tablet (Homa-Franci) Allergies Allergy/AdvReac Type Severity Reaction Status Date / Time No Known Allergies Allergy Verified 09/13/24 10:54 Visit Medications Acetaminophen (Acetaminophen 325 Mg Tablet) 650 mg PO Q6H PRN PRN Reason: Fever >100.4 or pain Stop: 10/15/24 11:50 Acetaminophen (Acetaminophen 325 Mg Tablet) 650 mg PO Q6H PRN PRN Reason: PAIN SCALE 1-3 (mild Stop: 10/15/24 11:50 Hydrocodone Bitart/Acetaminophen (Hydrocodone/Apap 5/325 Tablet) 1 tab PO Q4HR PRN PRN Reason: PAIN SCALE 4-6 (Moderate Stop: 09/20/24 11:50 Amiodarone HCl (Amiodarone Hcl 200 Mg Tablet) 200 mg PO BID [facility] Stop: 10/15/24 13:59 Aspirin (Aspirin Ec 81 Mg Tabec) 81 mg PO QDAY VIKRAM Stop: 10/15/24 11:59 Last Admin: 09/15/24 12:11 Dose: 81 mg Clopidogrel Bisulfate (Clopidogrel Bisulfate 75 Mg Tablet) 75 mg PO QDAY [facility] Stop: 10/15/24 11:59 Last Admin: 09/15/24 12:11 Dose: 75 mg Dextrose (Dextrose 50%-Water Inj 50 Ml Syringe) 25 ml IV Q15MIN PRN PRN Reason: BG 50-70 responsive npo pt Stop: 10/15/24 11:50 Dextrose (Dextrose 50%-Water Inj 50 Ml Syringe) 50 ml IV Q15MIN PRN PRN Reason: BG <50 OR BG <70 & pt unresponsive Stop: 10/15/24 11:50 Glucagon (Glucagon Inj 1 Mg Vial) 1 mg IM Q15MIN PRN PRN Reason: BG <70, and no IV access Albumin Human (Albuminar-25 Ivpb) 25 gm in 100 mls @ 100 mls/min IV PRN PRN PRN Reason: DIALYSIS Insulin Human Lispro (Insulin Lispro (Admelog) 1 Unit/0.01 Ml Unit) 0 unit SC ACHS VIKRAM; Protocol Stop: 10/15/24 16:59 Pantoprazole Sodium (Pantoprazole Inj 40 Mg Vial) 40 mg IVP QDAY VIKRAM Stop: 10/16/24 08:59 Sennosides (Senna Tablet) 2 tab PO BID PRN; Protocol PRN Reason: CONSTIPATION Stop: 10/15/24 11:50 Discontinued Medications Albuterol/Ipratropium (Albuterol/Ipratropium (Duoneb) Rt Treasure 3 Ml Nebu) 3 ml INH X1 ONE Stop: 09/15/24 04:49 Last Admin: 09/15/24 04:59 Dose: 3 ml Epoetin Jose (Epoetin Jose-Epbx 3,000 Unit/Ml Vial (Esrd)) 10,000 unit SC X1 ONE Stop: 09/15/24 16:01 Epoetin Jose (Epoetin Jose-Epbx Inj 10,000 Unit/Ml Vial (Esrd)) 10,000 unit SC X1 ONE Stop: 09/15/24 13:46 Assessment & Plan Plan 74 years old male patient with significant medical history for HFrEF ejection fraction 35%, s/p ICD pacemaker, CAD s/p multivessel stents, Afib, DM2, ESRD (on HD , key filer Dr. Azevedo), BPH and normocytic anemia presented to the ED with complaint of shortness of breath, lower extremity edema and weakness for the last week. Patient admitted for AHRF secondary to fluid overload, due to ESRD and CHF. #HFrEF (LVEF 35-40% June 2024) #S/p ICD pacemaker #Ischemic cardiomyopathy #CAD s/p multi-vessel stent Latest echocardiogram indicative of: mild MAC, mild MR, moderate aortic sclerosis without stenosis, mild IVC dilation, estimated EF 35-40% Patient does not have signs of heart failure exacerbation Plan: - Continue home HF meds as tolerated - Continue aspirin - Continue Plavix - Continue Atorvastatin - Low salt/cardiac diet - Strict intake and output - Fluid restriction and daily weight #Atrial fibrillation #s/p ICD EKG showed atrial and ventricular pacemaker with rate in the 60s. Plan: - Continue Amiodarone # ESRD on hemodialysis [Tuesdays/] # Chronic back pain # Restless leg syndrome # BPH # Chronic normocytic anemia -Management per primary team This patient care was discussed with my attending Dr. Eddie Martinez MD PGY-2 Disclaimer: Minor errors in shoe maker may be present since this note was dictated by speech recognition software.
[2024-09-15] MEDS: EPOETIN ALFA-EPBX INJ 10,000 UNIT/ML VIAL (ESRD) 10000 UNIT SC (15:30)
--- NOTE | 2024-09-15 16:03 | PC.NURSE ---
patient arrived on floor from dialysis
--- NOTE | 2024-09-15 16:30 | XR_ITS ---
Examination: AP chest single view Technique one AP portable semiupright chest single view Exam date and time: September 15, 2024 1659 hours INDICATIONS: Onset shortness of breath today COMPARISON: September 13, 2024 FINDINGS: Worsening bilateral pneumonia, diffuse Mild enlargement cardiac contour Prominent vascular congestion Cardiac leads satisfactory position IMPRESSION: Worsening bilateral pneumonia Mild heart failure
[2024-09-15] MEDS: AMIODARONE HCL 200 MG TABLET PO ×2 (16:40→20:59)
[2024-09-15 16:47] LABS: Magnesium 2.2 mg/dL (1.6-2.6); Phosphorous 2.6 mg/dL (2.4-5.1)
[2024-09-15 17:05] LABS: Hematocrit 24.9 % (41.0-53.0)
[2024-09-15] MEDS: INSULIN LISPRO (AdmeLOG) 1 UNIT/0.01 ML UNIT SC (17:26)
[2024-09-15 18:01] LABS: Hemoglobin 8.2 g/dL (13.5-16.0)
[2024-09-15] MEDS: MELATONIN 3 MG TABLET 9 MG PO (20:59)
[2024-09-15] MEDS: PRAMIPEXOLE 0.25 MG TABLET 0.5 MG PO (20:59)
[2024-09-15] MEDS: ATORVASTATIN CALCIUM 20 MG TABLET 40 MG PO (21:00)
[2024-09-15] MEDS: HYDROcodone/APAP 5/325 TABLET 1 TAB PO (21:00)
[2024-09-16] VITALS (11 sets, daily range): BP systolic 96–128; BP diastolic 52–72; PULSE 60–90; RESP 16–20; TEMP 36.2–37.1; O2SAT 94–99
--- NOTE | 2024-09-16 00:38 | PC.NURSE ---
Dr yang notified of pt BP 91/[address] stated to notify him if systolic goes below 80. No new orders at this time.
[2024-09-16] MEDS: HYDROcodone/APAP 5/325 TABLET 1 TAB PO ×2 (01:12→20:18)
[2024-09-16 06:13] LABS: Basophils # (Auto) 0.1 Thou/mm3 (0.0-0.2); Basophils % (Auto) 2 % (0-2.5); Eosinophils # (Auto) 0.5 Thou/mm3 (0.0-0.5); Eosinophils % (Auto) 7 % (0-10); Hematocrit 26.1 % (41.0-53.0); Hemoglobin 8.4 g/dL (13.5-16.0); Immature Granulocytes % (Auto) 0 % (0-0); Immature Granulocytes Auto 0.03 Thou/mm3 (0.00-0.00); Lymphocytes # (Auto) 1.5 Thou/mm3 (1.0-4.8); Lymphocytes % (Auto) 22 % (10-50); Mean Corpuscular HGB Conc 32.2 g/dl (31.0-37.0); Mean Corpuscular Hemoglobin 33.3 pg (25.0-35.0); Mean Corpuscular Volume 104 fL (80-100); Monocytes # (Auto) 0.6 Thou/mm3 (0.0-0.8); Monocytes % (Auto) 9 % (0-12); Neutrophils % (Auto) 60 % (37-80); Nucleated Red Blood Cell % 0 /100 WBC (0); Platelet Count 192 Thou/mm3 (140-440); Red Blood Count 2.52 Miln/mm3 (4.50-5.90); White Blood Count 6.7 Thou/mm3 (3.8-10.6)
[2024-09-16 06:50] LABS: Alanine Aminotransferase 45 U/L (10-49); Albumin, Serum 3.9 gm/dL (3.4-4.8); Albumin/Globulin Ratio 1.4 (1.2-2.2); Alkaline Phosphatase 130 U/L (46-116); Anion Gap 7 (7-16); Aspartate Amino Transferase 21 U/L (0-34); BUN/Creatinine Ratio 12 Ratio (12-20); Bilirubin,Total 0.4 mg/dL (0.3-1.2); Blood Urea Nitrogen 45 mg/dL (9-23); Calcium (Corrected) 9.1 mg/dL (8.5-10.1); Carbon Dioxide 27.3 mMol/L (20.0-31.0); Chloride 103 mMol/L (98-107); Creatinine (Component) 3.8 mg/dL (0.6-1.3); Globulin 2.7 gm/dL (2.3-3.5); Glucose 106 mg/dL (74-106); Magnesium 2.3 mg/dL (1.6-2.6); Osmolality,Calculated 285 (275-295); Phosphorous 3.8 mg/dL (2.4-5.1); Potassium 4.4 mMol/L (3.4-5.1); Sodium 137 mMol/L (136-145); Total Protein 6.6 gm/dL (5.7-8.2); eGFR 16 See Note
[2024-09-16 07:34] LABS: INR 1.1 (0.9-1.3); Partial Thromboplastin Time 30.5 Seconds (22.0-36.0)
[2024-09-16] MEDS: PANTOPRAZOLE INJ 40 MG VIAL IVP (08:33)
[2024-09-16] MEDS: VIT B12/Vit C/FA (Nephrovite) TABLET 1 TAB PO (08:34)
[2024-09-16] MEDS: PRAMIPEXOLE 0.25 MG TABLET 0.5 MG PO ×2 (08:34→20:19)
[2024-09-16] MEDS: AMIODARONE HCL 200 MG TABLET PO ×2 (08:34→20:18)
[2024-09-16] MEDS: ASPIRIN EC 81 MG TABEC PO (08:35)
[2024-09-16] MEDS: CLOPIDOGREL BISULFATE 75 MG TABLET PO (08:35)
--- NOTE | 2024-09-16 09:31 | ESPR_ITS ---
<Statement entered by Rebecca Hamm MD - 09/16/24 18:20> I discussed with and supervised my co-resident involved in the care of this patient. I agree with the assessment and plan as documented above. Giancarlo Martino is a 74 year old male with past medical of CAD, ESRD on dialysis twice a week, HFrEF, type 2 diabetes a-fib with ICD who presented with symptoms of weakness, shortness of breath and leg edema admitted for volume overload. Patient states he is doing well today. Still has lower extremity swelling. Nephrology and cardiology following. Will continue his home cardiac medications. Will consult GI for his persistent anemia. Rebecca Hamm MD PGY-3 Documentation for date of: 09/16/24 Subjective Subjective Interval history: Giancarlo Martino is a 74 year old male with past medical of CAD, ESRD on dialysis twice a week, HFrEF, type 2 diabetes a-fib with ICD who presented with symptoms of weakness, shortness of breath and leg edema admitted for volume overload. Patient was seen by cardiology who recommends patient continue ASA, Plavix and Amiodarone as prescribed. Had also been seen by nephrology who planned for removal of 3L of fluid and started him on EPO 20,000. Nephrology also suggest that patient begin dialysis 3 times a week instead of 2. 09/16/2024 Patient seen at bedside. No acute overnight events Patient says that he has some more energy than when he was admitted. He also says his dyspnea has improved. He reports he is still able to produce urine. Denies any leg pain. Patient receiving diuresis with Lasix 20mg IV daily Ins: 1340 Outs 600 Balance 740 Telemetry: Rates in the 60's and sinus rhythm Exam Vital Signs Temp Pulse Resp BP Pulse Ox O2 Del Method O2 Flow Rate 97.1 F 63 17 96/64 96 Nasal Cannula 2 09/16/24 08:00 09/16/24 08:34 09/16/24 08:00 09/16/24 08:34 09/16/24 08:00 09/16/24 08:00 09/16/24 08:00 Narrative Exam Constitutional: Alert and oriented to person, place and time CHEST: Symmetrical, atraumatic, and with equal expansion , Nontender on palpation no deformity and no crepitus. CARDIOVASCULAR: Heart regular rhythm no murmur or gallop rub or extra beats. LUNGS: Scattered crackles noted in lower lung bermudez bilaterally but improved from yesterday ABDOMEN: Soft, obese, nontender to palpation, no guarding or rebound tenderness.? There are no abnormal masses palpated.? Active and normal bowel sounds. EXTREMITIES: Patient has 2+ pitting edema up knees bilaterally. Left calf looks slightly more enlarged than right SKIN: Warm and dry, no jaundice or rashes noted. -- Patient was seen and discussed with attending physician, Dr. Pérez and resident physician, , PGY1 and Dr. Donato, PGY 2 Edgardo Ramos Medical student I have seen and examined the patient with medical student Edgardo Ramos , agree with his findings and have edited it with my assessment as well. Adrien Yousif MD PGY1 Objective Labs 09/17/24 05:25 09/17/24 05:25 Labs: Laboratory Results - last 24 hr 09/15/24 09/15/24 09/15/24 04:42 04:49 16:11 WBC RBC Hgb 8.2 L Hct 24.9 L MCV MCH MCHC RDW Std Deviation Plt Count Neut % (Auto) Lymph % (Auto) [place] % (Auto) Eos % (Auto) Baso % (Auto) Neut # (Auto) Lymph # (Auto) [place] # (Auto) Eos # (Auto) Baso # (Auto) Immature Gran # (Auto) Absolute Nucleated RBC Immature Gran % Nucleated RBC % PT INR APTT Sodium Potassium Chloride Carbon Dioxide Anion Gap BUN Creatinine Estim Creat Clear Calc eGFR BUN/Creatinine Ratio Glucose Calculated Osmolality Calcium Corrected Calcium Phosphorus 2.6 Magnesium 2.2 Iron 62 L TIBC 265 Ferritin 607 H Total Bilirubin AST ALT Alkaline Phosphatase Total Protein Albumin Globulin Albumin/Globulin Ratio Blood Type O Positive Antibody Screen NEGATIVE Crossmatch See Detail Blood Bank Wristband ID Yes 09/16/24 05:35 WBC 6.7 RBC 2.52 L Hgb 8.4 L Hct 26.1 L MCV 104 H MCH 33.3 MCHC 32.2 RDW Std Deviation 65.0 H Plt Count 192 Neut % (Auto) 60 Lymph % (Auto) 22 [place] % (Auto) 9 Eos % (Auto) 7 Baso % (Auto) 2 Neut # (Auto) 4.0 Lymph # (Auto) 1.5 [place] # (Auto) 0.6 Eos # (Auto) 0.5 Baso # (Auto) 0.1 Immature Gran # (Auto) 0.03 H Absolute Nucleated RBC 0.00 Immature Gran % 0 Nucleated RBC % 0 PT 12.0 INR 1.1 APTT 30.5 Sodium 137 Potassium 4.4 Chloride 103 Carbon Dioxide 27.3 Anion Gap 7 BUN 45 H Creatinine 3.8 H D Estim Creat Clear Calc 21.0 L eGFR 16 L BUN/Creatinine Ratio 12 Glucose 106 D Calculated Osmolality 285 Calcium 9.0 Corrected Calcium 9.1 Phosphorus 3.8 Magnesium 2.3 Iron TIBC Ferritin Total Bilirubin 0.4 AST 21 ALT 45 Alkaline Phosphatase 130 H D Total Protein 6.6 Albumin 3.9 Globulin 2.7 Albumin/Globulin Ratio 1.4 Blood Type Antibody Screen Crossmatch Blood Bank Wristband ID Quality Measures Quality Measures VTE prophylaxis Advance care planning discussed with:: patient Assessment & Plan Assessment Current Active Medications: Generic Name Dose Route Start Last Admin Trade Name Freq PRN Reason Stop Dose Admin Acetaminophen 650 mg 09/15/24 11:51 Acetaminophen 325 Mg Tablet PO 10/15/24 11:50 Q6H PRN Fever >100.4 or pain Acetaminophen 650 mg 09/15/24 11:51 Acetaminophen 325 Mg Tablet PO 10/15/24 11:50 Q6H PRN PAIN SCALE 1-3 (mild Hydrocodone Bitart/Acetaminophen 1 tab 09/15/24 11:51 09/16/24 01:12 Hydrocodone/Apap 5/325 Tablet PO 09/20/24 11:50 1 tab Q4HR PRN Administration PAIN SCALE 4-6 (Moderate Amiodarone HCl 200 mg 09/15/24 14:00 09/16/24 08:34 Amiodarone Hcl 200 Mg Tablet PO 10/15/24 13:59 200 mg BID VIKRAM Administration Aspirin 81 mg 09/15/24 12:00 09/16/24 08:35 Aspirin Ec 81 Mg Tabec PO 10/15/24 11:59 81 mg QDAY VIKRAM Administration Atorvastatin Calcium 40 mg 09/15/24 21:00 09/15/24 21:00 Atorvastatin Calcium 20 Mg Tablet PO 10/15/24 20:59 40 mg HS VIKRAM Administration Clopidogrel Bisulfate 75 mg 09/15/24 12:00 09/16/24 08:35 Clopidogrel Bisulfate 75 Mg Tablet PO 10/15/24 11:59 75 mg QDAY VIKRAM Administration Dextrose 25 ml 09/15/24 11:51 Dextrose 50%-Water Inj 50 Ml Syringe IV 10/15/24 11:50 Q15MIN PRN BG 50-70 responsive npo pt Dextrose 50 ml 09/15/24 11:51 Dextrose 50%-Water Inj 50 Ml Syringe IV 10/15/24 11:50 Q15MIN PRN BG <50 OR BG <70 & pt unresponsive Glucagon 1 mg 09/15/24 11:51 Glucagon Inj 1 Mg Vial IM Q15MIN PRN BG <70, and no IV access Albumin Human 25 gm in 100 mls @ 100 mls/min 09/15/24 09:15 Albuminar-25 Ivpb IV PRN PRN DIALYSIS Insulin Human Lispro 0 unit 09/15/24 17:00 09/16/24 07:27 Insulin Lispro (Admelog) 1 Unit/0.01 Ml Unit SC 10/15/24 16:59 Not Given ACHS VIKRAM Protocol Melatonin 9 mg 09/15/24 20:41 09/15/24 20:59 Melatonin 3 Mg Tablet PO 9 mg HS PRN Administration Insomnia Pantoprazole Sodium 40 mg 09/16/24 09:00 09/16/24 08:33 Pantoprazole Inj 40 Mg Vial IVP 10/16/24 08:59 40 mg QDAY VIKRAM Administration Pramipexole Dihydrochloride 0.5 mg 09/15/24 21:00 09/16/24 08:34 Pramipexole 0.25 Mg Tablet PO 10/15/24 20:59 0.5 mg BID VIKRAM Administration Sennosides 2 tab 09/15/24 11:51 Senna Tablet PO 10/15/24 11:50 BID PRN CONSTIPATION Protocol Vitamin B Complex/Vit C/Folic Acid 1 tab 09/16/24 09:00 09/16/24 08:34 Vit B12/Vit C/Fa (Nephrovite) Tablet PO 10/16/24 08:59 1 tab QDAY VIKRAM Administration Plan Giancarlo Martino is a 74 year old male with past medical history of CAD with multiple stents, ESRD(on dialysis Thursday and Thursday since 2022), HFrEF [35-40%], NIDDM type II [6], atrial flutter, and ICD placement. Presented today with a chief complaint of SOB. Patient will be admitted for volume overload requiring hemodialysis. 1. Volume overload secondary to inadequate fluid removal from hemodialysis - resolving 2. End-stage renal disease on hemodialysis via right radial AV fistula [Tuesdays/Saturdays] On admission patient had severe SOB at rest and unable to complete full sentences. Chest x-ray significant for bilateral flash pulmonary edema without any signs of consolidation. On 09/15 patient had emergent hemodialysis with a goal of 3L Ultrafiltration Nephrology now recommends patient increase to 3 times weekly Dialysis Plan: ? Strict input output charting ? 2G sodium restricted renal diet ? 1500 cc/day fluid restriction ? Daily weights ? Continue Hemodialysis as per Nephrology ? Nephrology, Dr Azevedo consulted and is closely following the case. Appreciate recommendations 3. Acute decompensated chronic systolic congestive heart failure with reduced ejection fraction [35-40%] - resolving On admission patient had severe SOB at rest and unable to complete full sentences. On exam patient had wheezing and crackles heard throughout all lung bermudez bilaterally. Also had lower extremity 2+ pitting edema up to knees bilaterally with scrotal edema. Chest x-ray significant for bilateral flash pulmonary edema without any signs of consolidation. BNP elevated at 2630 which is above patient's baseline of 900s from chart review. Patient's home diuretic furosemide 20 Mg p.o. daily Plan: ? Strict input output charting ? 2G sodium restricted renal diet ? 1500 cc/day fluid restriction ? Daily weights - Started Lasix 20mg IV daily for diuresis as patient still produces urine ? Beta-nichol on hold for now in light of acute heart failure exacerbation ? GDMT also on hold for now to give blood pressure room for extra hemodialysis for additional fluid removal. ? Cardiology, Dr. Armani Morgan consulted and is closely following the case. Appreciate recommendations 4. Chronic Normocytic Anemia From chart review baseline Hb between 8-10. On this admission Hb 7.5 Post 1 unit PRBC Hb 8.4 Due to patient's past history of CAD s/p stent, July 2024, his brownfield rede[employer] specialist Dr. Armani Morgan recommended to maintain hemoglobin >8/8.5 to reduce risk of MACE Plan: ? Stool for occult blood ordered ? GI, Dr. Collier consulted and is closely following the case. Appreciate recommendations. 5. ICD in situ due to risk of sudden cardiac 6. Coronary artery disease s/p 3 stents 7. History of atrial flutter 8. Hyperlipidemia Patient had 2 stents coronary stents last year and 1 recent stent July 2024. Patient on dual antiplatelet therapy with aspirin and Plavix. [id number]: 5 points; 7.2% stroke risk per year. Plan: ? Continue home medication amiodarone 200 Mg p.o. twice daily - Continue home medication atorvastatin 40 mg po HS 9. [id number] diabetes type 2 [6] Patient's home medication Jardiance 12.5 Mg Plan: ? Sliding scale insulin to cover for any glucose spikes 10. Essential hypertension On admission patient's BP 128/71. Currently BP 111/61 Patient's home medication hydralazine 25 Mg p.o. twice daily Plan: ? Antihypertensives on hold for now to give blood pressure room for dialysis 11. Lower extremity swelling 12. Rule out DVT Patient has bilateral lower extremity swelling most likely secondary to fluid overload and inadequate dialysis as well as CHF exacerbation. However his left calf appears larger than his right on exam. Plan: - Bilateral lower extremity Doppler ultrasound to rule out DVT Health maintenance: Disposition: Dialysis as per Nephrology. IV diuresis and GI consult. Lower extremity doppler Diet: cardiac and renal Lines: pIVs GI Prophylaxis:Pantoprazole Thrombo Prophylaxis: SCDs Code status: FULL CODE Plan of care discussed with Attending Dr. Pérez and PGY3 Dr. Noris Yousif MD PGY 1 Attending Provider Attestation/Addendum I, Niecy Pérez, DO, attest that I was physically present for the eric portions of the service and evaluated the patient with the resident and I reviewed and discussed the case with the resident and agree with the resident's findings and plans of care as documented above Patient seen and evaluated this AM. He states he is feeling well. However, has been having a nosebleed due to nasal cannula. Patient's b/l LE edema remains 2+, but slightly improved from yesterday. LLE edema appears >> right, will obtain US venous doppler to rule out any DVT. Patient has denied any hematochezia, melena or hematuria. Case discussed with nephrology, concerned for downtrending anemia. Will consult GI for anemia workup. Patient will also be starting dialysis 3x/ week rather than 2x. Patient agreeable with plan. He continues to have b/l scattered rhonchi in both lung bermudez. Will add lasix 20mg IV daily as pt is able to urinate as well.
--- NOTE | 2024-09-16 11:02 | ESCONSULT_ITS ---
HPI Data of Consult Requesting Physician: Niecy Pérez DO Primary Care Provider: Glynn Mckenzie MD Consult Narrative Reason for consult: H/H 7.5/23.9 History of present illness: 75 years old male evaluated at request of the internal medicine team and nephrology for a presenting hemoglobin hematocrit 7.5 and 23.9 No history of any bronson GI bleeding in the form of hematemesis melena or rectal bleeding Patient does have a history of end-stage renal disease on hemodialysis twice a week as well as congestive heart failure coronary artery disease diabetes mellitus type 2 Hemoccult testing of the stool is pending at the moment cc:: cc: Niecy Pérez DO Review of Systems Review of Systems Systems Reviewed: All systems reviewed, normal except as documented Past Medical History Surgical History OTHER SURGICAL HX: As in the history present illness Meds Home Medications and Allergies Home Medications ?Medication ?Instructions ?Recorded ?Confirmed ?Type amiodarone 200 mg tablet 200 mg PO BID 07/13/23 09/15/24 History vitamin B complex-vitamin C-folic 1 tab PO QDAY 07/13/23 09/15/24 History acid 0.8 mg tablet (Homa-Franci) atorvastatin 40 mg tablet 40 mg PO QPM 09/16/23 09/15/24 History clopidogrel 75 mg tablet (Plavix) 75 mg PO QDAY 09/16/23 09/15/24 History doxazosin 1 mg tablet 2 mg PO QDAY 09/16/23 09/15/24 History hydrocodone 10 mg-acetaminophen 10 - 325 tab PO Q6H PRN Pain 09/18/23 09/15/24 History 325 mg tablet furosemide 20 mg tablet 20 mg PO 1XD 07/23/24 09/15/24 History albuterol sulfate 90 mcg/actuation 2 puff inhalation QID PRN sob 09/07/24 09/15/24 History aerosol inhaler empagliflozin 10 mg tablet 25 mg PO QDAY 09/07/24 09/15/24 History (Jardiance) hydralazine 50 mg tablet 25 mg PO TID 09/07/24 09/15/24 History pramipexole 0.5 mg tablet 0.5 mg PO BID 09/07/24 09/15/24 History amiodarone 200 mg tablet 200 mg PO 2XD 09/15/24 09/15/24 History aspirin 81 mg capsule 81 mg PO QDAY 09/15/24 09/15/24 History atorvastatin 40 mg tablet 40 mg PO QPM 09/15/24 09/15/24 History clopidogrel 75 mg tablet 75 mg PO QDAY 09/15/24 09/15/24 History empagliflozin 10 mg tablet 10 mg PO QDAY 09/15/24 09/15/24 History (Jardiance) furosemide 20 mg tablet 20 mg PO QDAY 09/15/24 09/15/24 History lactulose 10 gram/15 mL oral 10 g PO QDAY 09/15/24 09/15/24 History solution melatonin 10 mg capsule 10 mg PO HS PRN Insomnia 09/15/24 09/15/24 History vitamin B complex-vitamin C-folic 1 tab PO QDAY 09/15/24 09/15/24 History acid 0.8 mg tablet (Homa-Franci) Allergies Allergy/AdvReac Type Severity Reaction Status Date / Time No Known Allergies Allergy Verified 09/13/24 10:54 Exam Vital Signs Temp Pulse Resp BP Pulse Ox O2 Del Method O2 Flow Rate 97.1 F 63 17 96/64 96 Nasal Cannula 2 09/16/24 08:00 09/16/24 08:34 09/16/24 08:00 09/16/24 08:34 09/16/24 08:00 09/16/24 08:00 09/16/24 08:00 Constitutional Comments: Alert oriented Routine Respiratory Exam Comments: Normal to auscultation Routine Abdominal Exam Comments: Soft nontender Results Labs 09/16/24 05:35 09/16/24 05:35 Labs: Short CBC 09/15/24 09/16/24 Range/Units 16:11 05:35 WBC 6.7 (3.8-10.6) Thou/mm3 Hgb 8.2 L 8.4 L (13.5-16.0) g/dL Hct 24.9 L 26.1 L (41.0-53.0) % Plt Count 192 (140-440) Thou/mm3 [facility] 09/16/24 05:35 Sodium 137 Potassium 4.4 Chloride 103 Carbon Dioxide 27.3 BUN 45 H Creatinine 3.8 H D Glucose 106 D Calcium 9.0 Liver Function 09/16/24 Range/Units 05:35 Total Bilirubin 0.4 (0.3-1.2) mg/dL AST 21 (0-34) U/L ALT 45 (10-49) U/L Alkaline Phosphatase 130 H D (46-116) U/L Albumin 3.9 (3.4-4.8) gm/dL Assessment and Plan Additional Assessment & Plan Additional Plan: # Anemia multifactorial one of the reasons could be anemia of blood loss Suggestions Fiberoptic esophagogastroduodenoscopy with possible therapeutic intervention possible biopsy under intravenous moderate sedation Was scheduled for today however just before the procedure time patient excellently was given orange juice I canceled the procedure and has been rescheduled for tomorrow morning Would also recommend iron panel B12 and folate level Will follow the patient Other medical problems include # Congestive heart failure # Coronary artery disease with stable angina # End-stage renal disease on hemodialysis # Diabetes mellitus type 2 Thank you very much for the opportunity to participate in the care of this patient
--- NOTE | 2024-09-16 11:08 | PC.SS ---
SS met with pt and regarding his d/c plan. Pt provided verbal options for d/c to home or SNF. Patient refused SNF and his choice is to return home. Patient's dialysis chair time is Thursday and Thursday at 5am at [facility] with Dr. Azevedo. Pt provides his own transportation.
--- NOTE | 2024-09-16 11:16 | PC.RT ---
PT WEARS 2LNC AT HOME
[2024-09-16] MEDS: FUROSEMIDE INJ 10 MG/ML VIAL 2 ML 20 MG IVP (11:24)
--- NOTE | 2024-09-16 11:49 | PC.SS ---
Follow up note: Dr. Collier is consulting. Low hemoglobin. Pt will return home upon dc.
--- NOTE | 2024-09-16 12:09 | XR_ITS ---
Examination: Venous duplex lower extremity sonogram, bilateral. Date and time of exam: September 16, 2024 1358 hours INDICATIONS: Bilateral leg swelling beginning 2 weeks ago Technique: Multiple sonographic images of the deep venous system have been obtained. B-mode/2-D grayscale imaging of vascular structures and Doppler spectral analysis (waveforms) and color performed Both legs are examined. Findings: Deep venous systems do not demonstrate abnormal echogenicity. All visualized deep veins exhibit compressibility. All visualized deep veins exhibit augmentation. Impression: Negative for deep vein thrombosis
--- NOTE | 2024-09-16 15:05 | PD.RESPRO ---
Documentation for date of: 09/16/24 Subjective Subjective Interval history: The patient is a 74-year old male with a previous medical history of end-stage renal disease on hemodialysis on Thursday and Thursday, CAD status post multiple stent placement, last PCI with stent placement 08/09/24, s/p pacemaker placement, CHF, type 2 diabetes, A-fib, who came to the ED with weakness, shortness of breath and increased leg edema. Patient reports he is supposed to receive home oxygen, and does not use it yet. He came to the ED a few days ago, was sent from the dialysis center due to low hemoglobin level, was supposed to receive blood transfusion, but left before receiving it. He was sent by his PCP again to receive blood transfusion. Last dialysis session was on Thursday this week. ED course: Blood pressure 128/71, saturating well on 2 L of nasal cannula, afebrile. Labs showed hemoglobin 7.5, sodium 139, potassium 4.4, BUN 62, creatinine 4.4, EGFR 16, glucose 228, AST 49, ALT 57. Troponin I was +0.135 on 09/13/2024, downtrending to 0.079 on 09/15/2024, BNP 2630. Chest x-ray 09/13/2024 showed mild CHF and significant bilateral pneumonia. EKG showed atrial and ventricular pacing. Patient started on home clopidogrel and aspirin. Care Transition Manager Dr. Azevedo was consulted due to fluid overload and anemia caused by ESRD. Due to fluid overload patient underwent emergent dialysis with goal to remove 3 L of fluid and transfuse 1 unit of blood. 09/16/24: Patient was seen and examined by the bedside. No acute overnight events. Patient reports feeling better. Patient had a hemodialysis session yesterday and received 1 unit of pRBC. Labs showed Hgb 8.4, Hct 26.1, Na 137, K 4.4, BUN 45, Cr 3.8, eGFR 16. GI was consulted today, pending recommendations. Exam Vital Signs Temp Pulse Resp BP Pulse Ox O2 Del Method O2 Flow Rate 97.7 F 63 17 108/52 L 94 L Nasal Cannula 2 09/16/24 12:00 09/16/24 12:00 09/16/24 12:00 09/16/24 12:09/16/24 12:00 09/16/24 12:09/16/24 12:00 Narrative Exam Physical Exam General: Awake and in no acute distress. Conversational and non-toxic appearing. Decreased hearing. HEENT: Normocephalic, atraumatic, mucous membranes moist. Heart: Regular rate and rhythm, no murmurs. Lungs: Clear to auscultation with no wheezing or crackles. Abdomen: Soft, nondistended, nontender, positive bowel sounds. ?No guarding or rebound tenderness. Neurologic: Alert and oriented x3, no gross neurological deficit, and patient able to move all 4 extremities. Extremities: 1+ bilateral leg edema. Skin: No rash or ecchymoses. Objective Labs 09/16/24 05:35 09/16/24 05:35 Labs: Laboratory Results - last 24 hr 09/15/24 09/15/24 09/16/24 04:42 16:11 05:35 WBC 6.7 RBC 2.52 L Hgb 8.2 L 8.4 L Hct 24.9 L 26.1 L MCV 104 H MCH 33.3 MCHC 32.2 RDW Std Deviation 65.0 H Plt Count 192 Neut % (Auto) 60 Lymph % (Auto) 22 [place] % (Auto) 9 Eos % (Auto) 7 Baso % (Auto) 2 Neut # (Auto) 4.0 Lymph # (Auto) 1.5 [place] # (Auto) 0.6 Eos # (Auto) 0.5 Baso # (Auto) 0.1 Immature Gran # (Auto) 0.03 H Absolute Nucleated RBC 0.00 Immature Gran % 0 Nucleated RBC % 0 PT 12.0 INR 1.1 APTT 30.5 Sodium 137 Potassium 4.4 Chloride 103 Carbon Dioxide 27.3 Anion Gap 7 BUN 45 H Creatinine 3.8 H D Estim Creat Clear Calc 21.0 L eGFR 16 L BUN/Creatinine Ratio 12 Glucose 106 D Calculated Osmolality 285 Calcium 9.0 Corrected Calcium 9.1 Phosphorus 2.6 3.8 Magnesium 2.2 2.3 Total Bilirubin 0.4 AST 21 ALT 45 Alkaline Phosphatase 130 H D Total Protein 6.6 Albumin 3.9 Globulin 2.7 Albumin/Globulin Ratio 1.4 Blood Type O Positive Antibody Screen NEGATIVE Crossmatch See Detail Blood Bank Wristband ID Yes Quality Measures Quality Measures VTE prophylaxis Advance care planning discussed with:: other Assessment & Plan Assessment Current Active Medications: Generic Name Dose Route Start Last Admin Trade Name Freq PRN Reason Stop Dose Admin Acetaminophen 650 mg 09/15/24 11:51 Acetaminophen 325 Mg Tablet PO 10/15/24 11:50 Q6H PRN Fever >100.4 or pain Protocol Hydrocodone Bitart/Acetaminophen 1 tab 09/15/24 11:51 09/16/24 01:12 Hydrocodone/Apap 5/325 Tablet PO 09/20/24 11:50 1 tab Q4HR PRN Administration PAIN SCALE 4-6 (Moderate Amiodarone HCl 200 mg 09/15/24 14:00 09/16/24 08:34 Amiodarone Hcl 200 Mg Tablet PO 10/15/24 13:59 200 mg BID VIKRAM Administration Aspirin 81 mg 09/15/24 12:00 09/16/24 08:35 Aspirin Ec 81 Mg Tabec PO 10/15/24 11:59 81 mg QDAY VIKRAM Administration Atorvastatin Calcium 40 mg 09/15/24 21:00 09/15/24 21:00 Atorvastatin Calcium 20 Mg Tablet PO 10/15/24 20:59 40 mg HS VIKRAM Administration Clopidogrel Bisulfate 75 mg 09/15/24 12:00 09/16/24 08:35 Clopidogrel Bisulfate 75 Mg Tablet PO 10/15/24 11:59 75 mg QDAY VIKRAM Administration Dextrose 25 ml 09/15/24 11:51 Dextrose 50%-Water Inj 50 Ml Syringe IV 10/15/24 11:50 Q15MIN PRN BG 50-70 responsive npo pt Dextrose 50 ml 09/15/24 11:51 Dextrose 50%-Water Inj 50 Ml Syringe IV 10/15/24 11:50 Q15MIN PRN BG <50 OR BG <70 & pt unresponsive Furosemide 20 mg 09/16/24 10:45 09/16/24 11:24 Furosemide Inj 10 Mg/Ml Vial 2 Ml IVP 10/16/24 10:44 20 mg BID VIKRAM Administration Glucagon 1 mg 09/15/24 11:51 Glucagon Inj 1 Mg Vial IM Q15MIN PRN BG <70, and no IV access Albumin Human 25 gm in 100 mls @ 100 mls/min 09/15/24 09:15 Albuminar-25 Ivpb IV PRN PRN DIALYSIS Insulin Human Lispro 0 unit 09/15/24 17:00 09/16/24 11:19 Insulin Lispro (Admelog) 1 Unit/0.01 Ml Unit SC 10/15/24 16:59 Not Given ACHS VIKRAM Protocol Melatonin 9 mg 09/15/24 20:41 09/15/24 20:59 Melatonin 3 Mg Tablet PO 9 mg HS PRN Administration Insomnia Pantoprazole Sodium 40 mg 09/16/24 09:00 09/16/24 08:33 Pantoprazole Inj 40 Mg Vial IVP 10/16/24 08:59 40 mg QDAY VIKRAM Administration Pramipexole Dihydrochloride 0.5 mg 09/15/24 21:00 09/16/24 08:34 Pramipexole 0.25 Mg Tablet PO 10/15/24 20:59 0.5 mg BID VIKRAM Administration Sennosides 2 tab 09/15/24 11:51 Senna Tablet PO 10/15/24 11:50 BID PRN CONSTIPATION Protocol Vitamin B Complex/Vit C/Folic Acid 1 tab 09/16/24 09:00 09/16/24 08:34 Vit B12/Vit C/Fa (Nephrovite) Tablet PO 10/16/24 08:59 1 tab QDAY VIKRAM Administration Plan The patient is a 74-year old male with a previous medical history of end-stage renal disease on hemodialysis on Thursday and Thursday, CAD status post multiple stent placement, last PCI with stent placement 08/09/24, s/p pacemaker placement, CHF, type 2 diabetes, A-fib, who came to the ED with weakness, shortness of breath and increased leg edema. Care Transition Manager Dr. Azevedo was consulted due to fluid overload and anemia caused by ESRD. Due to fluid overload patient underwent emergent dialysis with goal to remove 3 L of fluid and transfuse 1 unit of pRBC. #ESRD on HD (Thu-Thu) #Chronic severe anemia #Acute hypoxic respiratory failure, resolved Most likely due to fluid overload. Patient denies eating salty food and was inquiring about how to count fluid intake. Patient was explained that he needs to restrict fluid and he was also suggested to do dialysis 3 times per week. Plan: - strict I's and O's - fluid restriction 1500 ml - renal diet - monitor CBC, transfuse if Hgb <7 - GI consult - dialysis as scheduled 3 times a week. #CAD s/p stent, pacemaker placement #CHF #A-fib #T2DM - management per primary team Plan of care discussed with attending Dr. Azevedo. Eliane Baugh MD, PGY 1. Attending Provider Attestation/Addendum Patient seen and examined with resident physician Dr. Del Rio. Note reviewed, agree with findings and recommendations. Patient presented with shortness of breath, symptomatic anemia. Noted to have fluid overload. GI consultation requested. His hemoglobin in the dialysis unit was 6.9. Stool guaiac negative. If GI workup is negative we will request hematology consultation as an outpatient. Patient did receive dialysis yesterday. Still with 2+ edema. Plan of care discussed with Dr. Pérez
--- NOTE | 2024-09-16 17:27 | ESPR_ITS ---
<Statement entered by Cassie Morgan MD - 09/17/24 13:16> I personally examined the patient reviewed the findings by PGY 2 Dr. Goodman agree with treatment plan recommendation patient has had recent stent placement would not want to stop Plavix more than 4 days maximum to prevent stent thrombosis will continue to monitor the patient. Hemoglobin stable after 1 unit of packed red cell transfusion 8.4 g. Documentation for date of: 09/16/24 Subjective Subjective Interval history: 74 years old male patient with significant medical history for HFrEF ejection fraction 35%, s/p ICD pacemaker, CAD s/p multivessel stents, Afib, DM2, ESRD (on HD /, public health physician Dr. Azevedo), BPH and normocytic anemia presented to the ED with complaint of shortness of breath, lower extremity edema and weakness for the last week. Patient was recently sent to ED from dialysis center when his HgB was found to be low at 7.3. At that time he was also found to have pneumonia. Patient denies cough, chest pain/pressure, fever, chills, NVD or other associated symptoms. Today's labs were significant for HgB 7.5, MCV 106, Hct 23.9, BUN 62, Ink Maker 4.4, eGFR 14, Trop 0.79, BNP 2630. Chest x-ray (from 09/13/24) mild heart failure and significant b/l pneumonia. EKG showed atrial and ventricular pacemaker with rate in the 60s. Patient admitted for AHRF secondary to fluid overload, due to ESRD and CHF. 09/15/24: Patient seen and examined during dialysis. Patient denies having cough but has been endorsing weakness and shortness of breath on exertion last few days. Patient states that he is doing better right now. Would recommend continuing amiodarone for A-fib flutter, continue aspirin and Plavix and transfuse PRBC to keep hemoglobin at 8. 09/16/24: Patient had dialysis completed yesterday with 4 L of fluid out. Today he states that he is feeling better, his lower extremity edema has improved, his right leg is more swelled compared to his left, primary team completed Doppler ultrasound of lower extremities. Patient states after having a fall a while back he has noticed his right leg being more swelled compared to his left. His hemoglobin has been stable at 8.5 after receiving 1 unit of PRBC yesterday. Patient breathing comfortably on room air during examination, he was supposed to undergo EGD today but due to patient having oral intake, procedure was delayed until tomorrow morning. Continue current medical management regimen with amiodarone, diuresis and DAPT. Exam Vital Signs Temp Pulse Resp BP Pulse Ox O2 Del Method O2 Flow Rate 97.7 F 65 17 106/61 96 Nasal Cannula 2 09/16/24 16:00 09/16/24 16:00 09/16/24 16:00 09/16/24 16:00 09/16/24 16:00 09/16/24 16:00 09/16/24 16:00 Narrative Exam Constitutional: well-developed, well-nourished, in no acute distress, lying in bed HEENT: NCAT, EOMI, reactive round pupils b/l, patent nares b/l, moist mucous membranes Lung: CTAB, no wheezing, no rhonchi Heart: Regular S1S2, no murmurs, gallops, or rubs Abdomen: Soft, non-distended, non-tender, bowel sounds present throughout Extremities: No cyanosis, clubbing, +1 edema of legs, LE pulses present b/l Neurologic: No focal sensory or motor deficits noted, AOx3, appropriate affect Skin: Warm, dry, no lesions or rashes noted Objective Labs 09/16/24 05:35 09/16/24 05:35 Labs: Laboratory Results - last 24 hr 09/15/24 09/16/24 16:11 05:35 WBC 6.7 RBC 2.52 L Hgb 8.2 L 8.4 L Hct 24.9 L 26.1 L MCV 104 H MCH 33.3 MCHC 32.2 RDW Std Deviation 65.0 H Plt Count 192 Neut % (Auto) 60 Lymph % (Auto) 22 [place] % (Auto) 9 Eos % (Auto) 7 Baso % (Auto) 2 Neut # (Auto) 4.0 Lymph # (Auto) 1.5 [place] # (Auto) 0.6 Eos # (Auto) 0.5 Baso # (Auto) 0.1 Immature Gran # (Auto) 0.03 H Absolute Nucleated RBC 0.00 Immature Gran % 0 Nucleated RBC % 0 PT 12.0 INR 1.1 APTT 30.5 Sodium 137 Potassium 4.4 Chloride 103 Carbon Dioxide 27.3 Anion Gap 7 BUN 45 H Creatinine 3.8 H D Estim Creat Clear Calc 21.0 L eGFR 16 L BUN/Creatinine Ratio 12 Glucose 106 D Calculated Osmolality 285 Calcium 9.0 Corrected Calcium 9.1 Phosphorus 3.8 Magnesium 2.3 Total Bilirubin 0.4 AST 21 ALT 45 Alkaline Phosphatase 130 H D Total Protein 6.6 Albumin 3.9 Globulin 2.7 Albumin/Globulin Ratio 1.4 Quality Measures Quality Measures VTE prophylaxis Advance care planning discussed with:: other Assessment & Plan Assessment Current Active Medications: Generic Name Dose Route Start Last Admin Trade Name Freq PRN Reason Stop Dose Admin Acetaminophen 650 mg 09/15/24 11:51 Acetaminophen 325 Mg Tablet PO 10/15/24 11:50 Q6H PRN Fever >100.4 or pain Protocol Hydrocodone Bitart/Acetaminophen 1 tab 09/15/24 11:51 09/16/24 01:12 Hydrocodone/Apap 5/325 Tablet PO 09/20/24 11:50 1 tab Q4HR PRN Administration PAIN SCALE 4-6 (Moderate Amiodarone HCl 200 mg 09/15/24 14:00 09/16/24 08:34 Amiodarone Hcl 200 Mg Tablet PO 10/15/24 13:59 200 mg BID VIKRAM Administration Aspirin 81 mg 09/15/24 12:00 09/16/24 08:35 Aspirin Ec 81 Mg Tabec PO 10/15/24 11:59 81 mg QDAY VIKRAM Administration Atorvastatin Calcium 40 mg 09/15/24 21:00 09/15/24 21:00 Atorvastatin Calcium 20 Mg Tablet PO 10/15/24 20:59 40 mg HS VIKRAM Administration Clopidogrel Bisulfate 75 mg 09/15/24 12:00 09/16/24 08:35 Clopidogrel Bisulfate 75 Mg Tablet PO 10/15/24 11:59 75 mg QDAY VIKRAM Administration Dextrose 25 ml 09/15/24 11:51 Dextrose 50%-Water Inj 50 Ml Syringe IV 10/15/24 11:50 Q15MIN PRN BG 50-70 responsive npo pt Dextrose 50 ml 09/15/24 11:51 Dextrose 50%-Water Inj 50 Ml Syringe IV 10/15/24 11:50 Q15MIN PRN BG <50 OR BG <70 & pt unresponsive Furosemide 20 mg 09/17/24 09:00 Furosemide Inj 10 Mg/Ml Vial 2 Ml IVP 10/17/24 08:59 DAILY VIKRAM Glucagon 1 mg 09/15/24 11:51 Glucagon Inj 1 Mg Vial IM Q15MIN PRN BG <70, and no IV access Albumin Human 25 gm in 100 mls @ 100 mls/min 09/15/24 09:15 Albuminar-25 Ivpb IV PRN PRN DIALYSIS Insulin Human Lispro 0 unit 09/15/24 17:00 09/16/24 17:18 Insulin Lispro (Admelog) 1 Unit/0.01 Ml Unit SC 10/15/24 16:59 Not Given ACHS VIKRAM Protocol Melatonin 9 mg 09/15/24 20:41 09/15/24 20:59 Melatonin 3 Mg Tablet PO 9 mg HS PRN Administration Insomnia Pantoprazole Sodium 40 mg 09/16/24 09:00 09/16/24 08:33 Pantoprazole Inj 40 Mg Vial IVP 10/16/24 08:59 40 mg QDAY VIKRAM Administration Pramipexole Dihydrochloride 0.5 mg 09/15/24 21:00 09/16/24 08:34 Pramipexole 0.25 Mg Tablet PO 10/15/24 20:59 0.5 mg BID VIKRAM Administration Sennosides 2 tab 09/15/24 11:51 Senna Tablet PO 10/15/24 11:50 BID PRN CONSTIPATION Protocol Vitamin B Complex/Vit C/Folic Acid 1 tab 09/16/24 09:00 09/16/24 08:34 Vit B12/Vit C/Fa (Nephrovite) Tablet PO 10/16/24 08:59 1 tab QDAY VIKRAM Administration Plan 74 years old male patient with significant medical history for HFrEF ejection fraction 35%, s/p ICD pacemaker, CAD s/p multivessel stents, Afib, DM2, ESRD (on HD , public health physician Dr. Azevedo), BPH and normocytic anemia presented to the ED with complaint of shortness of breath, lower extremity edema and weakness for the last week. Patient admitted for AHRF secondary to fluid overload, due to ESRD and CHF. #HFrEF (LVEF 35-40% June 2024) #S/p ICD pacemaker #Ischemic cardiomyopathy #CAD s/p multi-vessel stent Latest echocardiogram indicative of: mild MAC, mild MR, moderate aortic sclerosis without stenosis, mild IVC dilation, estimated EF 35-40% Patient does not have signs of heart failure exacerbation Plan: - Continue home HF meds as tolerated - Continue aspirin - Continue Plavix - Continue Atorvastatin - Low salt/cardiac diet - Strict intake and output - Fluid restriction and daily weight #Atrial fibrillation #s/p ICD EKG showed atrial and ventricular pacemaker with rate in the 60s. Plan: - Continue Amiodarone # ESRD on hemodialysis [Tuesdays/] # Chronic back pain # Restless leg syndrome # BPH # Chronic normocytic anemia -Management per primary team This patient care was discussed with my attending Dr. Eddie Martinez MD PGY-2 Disclaimer: Minor errors in equipment analyst may be present since this note was dictated by speech recognition software.
[2024-09-16] MEDS: ATORVASTATIN CALCIUM 20 MG TABLET 40 MG PO (20:18)
[2024-09-17] VITALS (35 sets, daily range): BP systolic 112–145; BP diastolic 59–81; PULSE 59–85; RESP 12–19; TEMP 36.2–36.6; O2SAT 94–99
--- NOTE | 2024-09-17 05:33 | PC.NURSE ---
marvin to give norco PO to pt per DR. Howard. was made aware of Pt npo order for EGD.
--- NOTE | 2024-09-17 05:35 | PC.NURSE ---
called DR. Collier to ask if pt could get norco for pain but was not able to get a hold from him. Per DR. Howard okay to give norco pill.
[2024-09-17] MEDS: HYDROcodone/APAP 5/325 TABLET 1 TAB PO ×3 (05:39→20:46)
[2024-09-17 06:01] LABS: Basophils # (Auto) 0.1 Thou/mm3 (0.0-0.2); Basophils % (Auto) 1 % (0-2.5); Eosinophils # (Auto) 0.6 Thou/mm3 (0.0-0.5); Eosinophils % (Auto) 8 % (0-10); Hematocrit 26.8 % (41.0-53.0); Immature Granulocytes % (Auto) 0 % (0-0); Immature Granulocytes Auto 0.02 Thou/mm3 (0.00-0.00); Lymphocytes # (Auto) 1.2 Thou/mm3 (1.0-4.8); Lymphocytes % (Auto) 18 % (10-50); Mean Corpuscular HGB Conc 31.7 g/dl (31.0-37.0); Mean Corpuscular Hemoglobin 32.8 pg (25.0-35.0); Mean Corpuscular Volume 104 fL (80-100); Monocytes # (Auto) 0.6 Thou/mm3 (0.0-0.8); Monocytes % (Auto) 9 % (0-12); Neutrophils # (Auto) 4.2 Thou/mm3 (1.8-7.7); Neutrophils % (Auto) 63 % (37-80); Nucleated Red Blood Cell % 0 /100 WBC (0); Platelet Count 190 Thou/mm3 (140-440); Red Blood Count 2.59 Miln/mm3 (4.50-5.90); White Blood Count 6.6 Thou/mm3 (3.8-10.6)
[2024-09-17 06:05] LABS: Hemoglobin 8.5 g/dL (13.5-16.0)
[2024-09-17 06:41] LABS: Alanine Aminotransferase 36 U/L (10-49); Albumin, Serum 3.9 gm/dL (3.4-4.8); Albumin/Globulin Ratio 1.4 (1.2-2.2); Alkaline Phosphatase 98 U/L (46-116); Anion Gap 6 (7-16); Aspartate Amino Transferase 22 U/L (0-34); BUN/Creatinine Ratio 12 Ratio (12-20); Bilirubin,Total 0.5 mg/dL (0.3-1.2); Blood Urea Nitrogen 52 mg/dL (9-23); Calcium 9.3 mg/dL (8.3-10.6); Calcium (Corrected) 9.4 mg/dL (8.5-10.1); Carbon Dioxide 26.6 mMol/L (20.0-31.0); Chloride 102 mMol/L (98-107); Creatinine (Component) 4.2 mg/dL (0.6-1.3); Globulin 2.7 gm/dL (2.3-3.5); Glucose 98 mg/dL (74-106); Magnesium 2.4 mg/dL (1.6-2.6); Osmolality,Calculated 284 (275-295); Phosphorous 3.9 mg/dL (2.4-5.1); Potassium 4.5 mMol/L (3.4-5.1); Sodium 135 mMol/L (136-145); Total Protein 6.6 gm/dL (5.7-8.2); eGFR 14 See Note
--- NOTE | 2024-09-17 08:28 | ESPR_ITS ---
Documentation for date of: 09/17/24 Subjective Subjective Interval history: Patient examined while he was getting dialysis. No acute overnight events. Patient reports he feels less short of breath. Denies any new chest pain, abdominal pain, leg pain, nausea, vomiting. Ins: 620 Outs: 850 Balance: -230 Telemetry: Normal sinus rhythm with rate at 87. Exam Vital Signs Temp Pulse Resp BP Pulse Ox O2 Del Method O2 Flow Rate 97.5 F 60 18 138/74 H 96 Nasal Cannula 2 09/17/24 07:55 09/17/24 08:17 09/17/24 07:55 09/17/24 08:17 09/17/24 07:55 09/17/24 07:55 09/17/24 07:55 Narrative Exam Constitutional: Alert and oriented to person, place, and time. Resting in bed, recieving dialysis CHEST: Symmetrical, atraumatic, and with equal expansion , Nontender on palpation no deformity and no crepitus. CARDIOVASCULAR: Heart regular rhythm no murmur or gallop rub or extra beats. LUNGS: Crackles noted in lower lung bermudez, improved ABDOMEN: Soft, flat, nontender to palpation, no guarding or rebound tenderness.? There are no abnormal masses palpated.? Active and normal bowel sounds. MSK: R radial fistula EXTREMITIES: 2+ Edema up to his knees. More edema in left leg than right, improved Objective Labs 09/18/24 05:13 09/18/24 05:13 Labs: Laboratory Results - last 24 hr 09/17/24 05:25 WBC 6.6 RBC 2.59 L Hgb 8.5 L Hct 26.8 L MCV 104 H MCH 32.8 MCHC 31.7 RDW Std Deviation 64.0 H Plt Count 190 Neut % (Auto) 63 Lymph % (Auto) 18 [place] % (Auto) 9 Eos % (Auto) 8 Baso % (Auto) 1 Neut # (Auto) 4.2 Lymph # (Auto) 1.2 [place] # (Auto) 0.6 Eos # (Auto) 0.6 H Baso # (Auto) 0.1 Immature Gran # (Auto) 0.02 H Absolute Nucleated RBC 0.00 Immature Gran % 0 Nucleated RBC % 0 Sodium 135 L Potassium 4.5 Chloride 102 Carbon Dioxide 26.6 Anion Gap 6 L BUN 52 H Creatinine 4.2 H* Estim Creat Clear Calc 19.0 L eGFR 14 L* BUN/Creatinine Ratio 12 Glucose 98 Calculated Osmolality 284 Calcium 9.3 Corrected Calcium 9.4 Phosphorus 3.9 Magnesium 2.4 Total Bilirubin 0.5 AST 22 ALT 36 Alkaline Phosphatase 98 D Total Protein 6.6 Albumin 3.9 Globulin 2.7 Albumin/Globulin Ratio 1.4 Quality Measures Quality Measures VTE prophylaxis Advance care planning discussed with:: patient Assessment & Plan Assessment Current Active Medications: Generic Name Dose Route Start Last Admin Trade Name Freq PRN Reason Stop Dose Admin Acetaminophen 650 mg 09/15/24 11:51 Acetaminophen 325 Mg Tablet PO 10/15/24 11:50 Q6H PRN Fever >100.4 or pain Protocol Hydrocodone Bitart/Acetaminophen 1 tab 09/15/24 11:51 09/17/24 05:39 Hydrocodone/Apap 5/325 Tablet PO 09/20/24 11:50 1 tab Q4HR PRN Administration PAIN SCALE 4-6 (Moderate Amiodarone HCl 200 mg 09/15/24 14:00 09/16/24 20:18 Amiodarone Hcl 200 Mg Tablet PO 10/15/24 13:59 200 mg BID VIKRAM Administration Aspirin 81 mg 09/15/24 12:00 09/16/24 08:35 Aspirin Ec 81 Mg Tabec PO 10/15/24 11:59 81 mg QDAY VIKRAM Administration Atorvastatin Calcium 40 mg 09/15/24 21:00 09/16/24 20:18 Atorvastatin Calcium 20 Mg Tablet PO 10/15/24 20:59 40 mg HS VIKRAM Administration Clopidogrel Bisulfate 75 mg 09/15/24 12:00 09/16/24 08:35 Clopidogrel Bisulfate 75 Mg Tablet PO 10/15/24 11:59 75 mg QDAY VIKRAM Administration Dextrose 25 ml 09/15/24 11:51 Dextrose 50%-Water Inj 50 Ml Syringe IV 10/15/24 11:50 Q15MIN PRN BG 50-70 responsive npo pt Dextrose 50 ml 09/15/24 11:51 Dextrose 50%-Water Inj 50 Ml Syringe IV 10/15/24 11:50 Q15MIN PRN BG <50 OR BG <70 & pt unresponsive Epoetin Jose 10,000 unit 09/17/24 10:00 Epoetin Jose-Epbx Inj 10,000 Unit/Ml Vial (Esrd) SC 09/17/24 10:01 X1 ONE Furosemide 20 mg 09/17/24 09:00 Furosemide Inj 10 Mg/Ml Vial 2 Ml IVP 10/17/24 08:59 DAILY VIKRAM Glucagon 1 mg 09/15/24 11:51 Glucagon Inj 1 Mg Vial IM Q15MIN PRN BG <70, and no IV access Albumin Human 25 gm in 100 mls @ 100 mls/min 09/15/24 09:15 Albuminar-25 Ivpb IV PRN PRN DIALYSIS Insulin Human Lispro 0 unit 09/15/24 17:00 09/17/24 07:27 Insulin Lispro (Admelog) 1 Unit/0.01 Ml Unit SC 10/15/24 16:59 Not Given ACHS VIKRAM Protocol Melatonin 9 mg 09/15/24 20:41 09/15/24 20:59 Melatonin 3 Mg Tablet PO 9 mg HS PRN Administration Insomnia Pantoprazole Sodium 40 mg 09/16/24 09:00 09/16/24 08:33 Pantoprazole Inj 40 Mg Vial IVP 10/16/24 08:59 40 mg QDAY VIKRAM Administration Pramipexole Dihydrochloride 0.5 mg 09/15/24 21:00 09/16/24 20:19 Pramipexole 0.25 Mg Tablet PO 10/15/24 20:59 0.5 mg BID VIKRAM Administration Sennosides 2 tab 09/15/24 11:51 Senna Tablet PO 10/15/24 11:50 BID PRN CONSTIPATION Protocol Vitamin B Complex/Vit C/Folic Acid 1 tab 09/16/24 09:00 09/16/24 08:34 Vit B12/Vit C/Fa (Nephrovite) Tablet PO 10/16/24 08:59 1 tab QDAY VIKRAM Administration Plan Giancarlo Martino is a 74 year old male with past medical history of CAD with multiple stents, ESRD(on dialysis Thursday and Thursday since 2022), HFrEF [35-40%], NIDDM type II [6], atrial flutter, and ICD placement who presented to the ER for shortness of breath and amitted for volume overload. #Anasarca, improving In the setting of acute decompensated heart failure (HFrEF) and ESRD on HD / - See below #ESRD on HD / Patient to under HD today removal of 4L - Dr. Azevedo following: increase HD to three times a week outpatient #Acute decompensated chronic HFrEF (35-40%) s/p ICD - Strict I&O - 2g sodium restricted, renal diet - Fluid restrict 1500cc/day - Lasix 20mg IV Qday - GDMT on hold, consider restart prior to discharge - Cardio Dr. Morgan following #Coronary artery disease status post recent multivessel stent placement - Holding plavix for acute anemia workup - Dr. Morgan following: do not hold plavix more than 4 days #Acute on chronic normocytic anemia In the setting of ESRD; no significant giancarlo bleeding noted - Dr. Collier following, appreciate recommendations - Transfuse if Hb < 8 - EGD today to assess for UGIB #History of aflutter - Continue amiodarone # [id number] diabetes type 2 A1c - Hold home meds - ISS #Restless leg syndrome - continue home pramipexole Health Maintenance Disposition: Admit for acute volume overload in the setting of ESRD, HFrEF; EGD today Diet and fluids: cardic, renal, fluid restrict DVT prophylaxis: SCD GI prophylaxis: protoniX CODE STATUS: full I have reviewed and discussed the patient's care with my attending, Dr. Gretchen Ramos, MS4 Rebecca Hamm MD PGY-3 Attending Provider Attestation/Addendum I have discussed and was present for the essential components of the history, physical examination, diagnosis, and treatment plan with the resident. I agree with the patient's care as documented by the resident and amended herein by me. Black Godinez DO. No acute events overnight, hemoglobin stable at 8.5 today, /8050. Patient did undergo hemodialysis today, EGD also performed today demonstrating esophagitis and nonerosive gastritis, gastroenterology recommending colonoscopy, GoLytely ordered. Cardiology consulted, Plavix can be held for 2 to 3 days in the setting of possible GI bleed however will not hold for more than a maximum of 4 days, can likely restart tomorrow as patient has no signs of active bleed at this time, hemoglobin is actually up trended in the last 2 days however we will continue to hold today for colonoscopy tomorrow for any possible GI intervention. Will continue to monitor closely Leiser. Although this document has been carefully reviewed, there may still be some phonetic and other typographical errors. These errors are purely grammatical due to imperfections in the software program and should not be construed in any way to compromise the substance of the patient's medical care during this visit.
--- NOTE | 2024-09-17 09:42 | ESPR_ITS ---
Documentation for date of: 09/17/24 Subjective Subjective Interval history: The patient is a 74-year old male with a previous medical history of end-stage renal disease on hemodialysis on Thursday and Thursday, CAD status post multiple stent placement, last PCI with stent placement 08/09/24, s/p pacemaker placement, CHF, type 2 diabetes, A-fib, who came to the ED with weakness, shortness of breath and increased leg edema. Patient reports he is supposed to receive home oxygen, and does not use it yet. He came to the ED a few days ago, was sent from the dialysis center due to low hemoglobin level, was supposed to receive blood transfusion, but left before receiving it. He was sent by his PCP again to receive blood transfusion. Last dialysis session was on Thursday this week. ED course: Blood pressure 128/71, saturating well on 2 L of nasal cannula, afebrile. Labs showed hemoglobin 7.5, sodium 139, potassium 4.4, BUN 62, creatinine 4.4, EGFR 16, glucose 228, AST 49, ALT 57. Troponin I was +0.135 on 09/13/2024, downtrending to 0.079 on 09/15/2024, BNP 2630. Chest x-ray 09/13/2024 showed mild CHF and significant bilateral pneumonia. EKG showed atrial and ventricular pacing. Patient started on home clopidogrel and aspirin. Processor Inspector Dr. Azevedo was consulted due to fluid overload and anemia caused by ESRD. Due to fluid overload patient underwent emergent dialysis with goal to remove 3 L of fluid and transfuse 1 unit of blood. 09/16/24: Patient was seen and examined by the bedside. No acute overnight events. Patient reports feeling better. Patient had a hemodialysis session yesterday and received 1 unit of pRBC. Labs showed Hgb 8.4, Hct 26.1, Na 137, K 4.4, BUN 45, Cr 3.8, eGFR 16. GI was consulted today, pending recommendations. 09/17/2024: Patient seen, receiving dialysis complains of generalized body pain, patient is fluid overloaded, plan to remove about 4 L worth of fluid today along with transfusion of PRBC. Labs today show hemoglobin 8.5, hematocrit 26.8. Patient undergoing GI workup for suspected GI bleed. Scheduled for EGD today. Exam Vital Signs Temp Pulse Resp BP Pulse Ox O2 Del Method O2 Flow Rate 97.5 F 59 L 18 140/74 H 96 Nasal Cannula 2 09/17/24 09:07 09/17/24 09:30 09/17/24 09:07 09/17/24 09:30 09/17/24 09:07 09/17/24 07:55 09/17/24 09:07 Narrative Exam Physical Exam General: Awake and in no acute distress. Conversational and non-toxic appearing. Decreased hearing. HEENT: Normocephalic, atraumatic, mucous membranes moist. Heart: Regular rate and rhythm, no murmurs. Lungs: Clear to auscultation with no wheezing or crackles. Abdomen: Soft, nondistended, nontender, positive bowel sounds. ?No guarding or rebound tenderness. Neurologic: Alert and oriented x3, no gross neurological deficit, and patient able to move all 4 extremities. Extremities: 1+ bilateral leg edema. Skin: No rash or ecchymoses. Objective Labs 09/17/24 05:25 09/17/24 05:25 Labs: Laboratory Results - last 24 hr 09/15/24 09/17/24 04:42 05:25 WBC 6.6 RBC 2.59 L Hgb 8.5 L Hct 26.8 L MCV 104 H MCH 32.8 MCHC 31.7 RDW Std Deviation 64.0 H Plt Count 190 Neut % (Auto) 63 Lymph % (Auto) 18 [place] % (Auto) 9 Eos % (Auto) 8 Baso % (Auto) 1 Neut # (Auto) 4.2 Lymph # (Auto) 1.2 [place] # (Auto) 0.6 Eos # (Auto) 0.6 H Baso # (Auto) 0.1 Immature Gran # (Auto) 0.02 H Absolute Nucleated RBC 0.00 Immature Gran % 0 Nucleated RBC % 0 Sodium 135 L Potassium 4.5 Chloride 102 Carbon Dioxide 26.6 Anion Gap 6 L BUN 52 H Creatinine 4.2 H* Estim Creat Clear Calc 19.0 L eGFR 14 L* BUN/Creatinine Ratio 12 Glucose 98 Calculated Osmolality 284 Calcium 9.3 Corrected Calcium 9.4 Phosphorus 3.9 Magnesium 2.4 Total Bilirubin 0.5 AST 22 ALT 36 Alkaline Phosphatase 98 D Total Protein 6.6 Albumin 3.9 Globulin 2.7 Albumin/Globulin Ratio 1.4 Blood Type O Positive Antibody Screen NEGATIVE Crossmatch See Detail Blood Bank Wristband ID Yes Quality Measures Quality Measures VTE prophylaxis Advance care planning discussed with:: patient Assessment & Plan Assessment Current Active Medications: Generic Name Dose Route Start Last Admin Trade Name Freq PRN Reason Stop Dose Admin Acetaminophen 650 mg 09/15/24 11:51 Acetaminophen 325 Mg Tablet PO 10/15/24 11:50 Q6H PRN Fever >100.4 or pain Protocol Hydrocodone Bitart/Acetaminophen 1 tab 09/15/24 11:51 09/17/24 05:39 Hydrocodone/Apap 5/325 Tablet PO 09/20/24 11:50 1 tab Q4HR PRN Administration PAIN SCALE 4-6 (Moderate Amiodarone HCl 200 mg 09/15/24 14:00 09/16/24 20:18 Amiodarone Hcl 200 Mg Tablet PO 10/15/24 13:59 200 mg BID VIKRAM Administration Aspirin 81 mg 09/15/24 12:00 09/16/24 08:35 Aspirin Ec 81 Mg Tabec PO 10/15/24 11:59 81 mg QDAY VIKRAM Administration Atorvastatin Calcium 40 mg 09/15/24 21:00 09/16/24 20:18 Atorvastatin Calcium 20 Mg Tablet PO 10/15/24 20:59 40 mg HS VIKRAM Administration Clopidogrel Bisulfate 75 mg 09/15/24 12:00 09/16/24 08:35 Clopidogrel Bisulfate 75 Mg Tablet PO 10/15/24 11:59 75 mg QDAY VIKRAM Administration Dextrose 25 ml 09/15/24 11:51 Dextrose 50%-Water Inj 50 Ml Syringe IV 10/15/24 11:50 Q15MIN PRN BG 50-70 responsive npo pt Dextrose 50 ml 09/15/24 11:51 Dextrose 50%-Water Inj 50 Ml Syringe IV 10/15/24 11:50 Q15MIN PRN BG <50 OR BG <70 & pt unresponsive Epoetin Jose 10,000 unit 09/17/24 10:00 Epoetin Jose-Epbx Inj 10,000 Unit/Ml Vial (Esrd) SC 09/17/24 10:01 X1 ONE Furosemide 20 mg 09/17/24 09:00 Furosemide Inj 10 Mg/Ml Vial 2 Ml IVP 10/17/24 08:59 DAILY VIKRAM Glucagon 1 mg 09/15/24 11:51 Glucagon Inj 1 Mg Vial IM Q15MIN PRN BG <70, and no IV access Albumin Human 25 gm in 100 mls @ 100 mls/min 09/15/24 09:15 Albuminar-25 Ivpb IV PRN PRN DIALYSIS Insulin Human Lispro 0 unit 09/15/24 17:00 09/17/24 07:27 Insulin Lispro (Admelog) 1 Unit/0.01 Ml Unit SC 10/15/24 16:59 Not Given ACHS VIKRAM Protocol Melatonin 9 mg 09/15/24 20:41 09/15/24 20:59 Melatonin 3 Mg Tablet PO 9 mg HS PRN Administration Insomnia Pantoprazole Sodium 40 mg 09/16/24 09:00 09/16/24 08:33 Pantoprazole Inj 40 Mg Vial IVP 10/16/24 08:59 40 mg QDAY VIKRAM Administration Pramipexole Dihydrochloride 0.5 mg 09/15/24 21:00 09/16/24 20:19 Pramipexole 0.25 Mg Tablet PO 10/15/24 20:59 0.5 mg BID VIKRAM Administration Sennosides 2 tab 09/15/24 11:51 Senna Tablet PO 10/15/24 11:50 BID PRN CONSTIPATION Protocol Vitamin B Complex/Vit C/Folic Acid 1 tab 09/16/24 09:00 09/16/24 08:34 Vit B12/Vit C/Fa (Nephrovite) Tablet PO 10/16/24 08:59 1 tab QDAY VIKRAM Administration Plan The patient is a 74-year old male with a previous medical history of end-stage renal disease on hemodialysis on Thursday and Thursday, CAD status post multiple stent placement, last PCI with stent placement 08/09/24, s/p pacemaker placement, CHF, type 2 diabetes, A-fib, who came to the ED with weakness, shortness of breath and increased leg edema. Processor Inspector Dr. Azevedo was consulted due to fluid overload and anemia caused by ESRD. Due to fluid overload patient underwent emergent dialysis with goal to remove 3 L of fluid and transfuse 1 unit of pRBC. #ESRD on HD () #Chronic severe anemia #Acute hypoxic respiratory failure, resolved Most likely due to fluid overload. Patient denies eating salty food and was inquiring about how to count fluid intake. Patient was explained that he needs to restrict fluid and he was also suggested to do dialysis 3 times per week. Plan: - Patient will receive dialysis treatment today, plan to remove about 4 L worth of fluid, will transfuse pRBC - strict I's and O's - fluid restriction 1500 ml - renal diet - monitor CBC, transfuse if Hgb <7 - dialysis as scheduled 3 times a week. -Undergoing GI workup #CAD s/p stent, pacemaker placement #CHF #A-fib #T2DM - management per primary team Plan of care discussed with attending Dr. Azevedo. Karyn Albert, PGY 1. Attending Provider Attestation/Addendum Patient seen and examined with resident physician Dr. Albert. Note reviewed, agree with findings and recommendations. Patient presented with shortness of breath, symptomatic anemia. Noted to have fluid overload. GI consultation requested. His hemoglobin in the dialysis unit was 6.9. Stool guaiac negative. If GI workup is negative we will request hematology consultation as an outpatient. 09/17/20 patient currently receiving 1 unit of blood with dialysis. Patient currently seen on dialysis. Tolerating dialysis without any problems. Hemodialysis for 3 hours, 2K, ultrafiltration 3 to 4 L, Epogen 6000, no heparin ordered. Plan of care discussed with the dialysis nurse. Please see dialysis flowsheet for further details. Patient will go for endoscopy after dialysis.
[2024-09-17] MEDS: EPOETIN ALFA-EPBX INJ 10,000 UNIT/ML VIAL (ESRD) 10000 UNIT SC (09:49)
--- NOTE | 2024-09-17 10:02 | PC.NURSE ---
Patient has 1.5 hr remaining on HD, tolerating well. 1 unit prbc given at this time, no s/s of reaction or side effects noted. Pt no complaints. VS stable. Will monitor
--- NOTE | 2024-09-17 11:51 | PC.NURSE ---
Tx d/c few mins early due to pt will have endoscopy procedure. Pt was dialyzed for 3 hrs. Tolerated well. 1 unit prbc given during hd, no s/s of reaction/side effects noted. Able to removed 2700 ml of fluid net. Pt no complaints. Respiration even and unlabored. Sating at 95% on O2 at 2L/min via nc. Post tx BP 132/76, HR 60, Temp 97.8. Pt back in his room. Pt transferred by himself to [facility] with endo team assisting pt. Pressure dressing on right forearm AV fistula clean, dry, and intact. No bleeding, dressing needs to be remove around 1430. Report given to Maria D BOWMAN.
--- NOTE | 2024-09-17 12:25 | SUR.PHASEI ---
received pt and report from RN Demetria. Pt awake A&Ox3. no distress noted. BS 75, no s/s of hypoglycemia 120 cc apple juice given. pt tolerated well. vss stable, dressing to avf rt forearm bruit and thrill present, IV to left forearm in place no s/s of infiltration or redness to site. wll cont to monitor
--- NOTE | 2024-09-17 12:49 | SUR.PHASEI ---
report given to COLBY Killian. vss stable, pt recovering well. no distress noted.
[2024-09-17] MEDS: NA SU/NAHCO3/KC/PEG (Golytely) 4,000 ML BTL 4000 ML PO (13:54)
--- NOTE | 2024-09-17 14:03 | ESPR_ITS ---
RE: GIANCARLO LAU : 1950 DATE OF SERVICE: 09/17/2024 SUBJECTIVE: Giancarlo is a 74-year-old male who has received multiple stent placements and has admitted to the hospital for anemia, undergoing a workup for anemia so far with endoscopy today. The patient did undergo EGD and endoscopy showed evidence of esophagitis and gastritis with no active bleeding. OBJECTIVE: General: He is feeling better and has no complaints of chest pain or shortness of breath. Vital Signs: Blood pressure 120/70, pulse 60, respiratory , temperature normal. Neck: Supple. Lungs: Decreased Heart: Heart sounds regular. No gallops. Abdomen: Thin and soft. Extremities: Normal. LABORATORY DATA: Laboratory showed hemoglobin 8.5, stable, no further drop. He did received a packed red cell transfusion because of swelling deep venous thrombosis study was negative for DVT. IMPRESSION: 1. Coronary artery disease status post recent multivessel stent placement. 2. Anemia secondary to gastritis and . 3. Status post multivessel stent place, most recently right coronary artery stent placed with drug-eluting stent. RECOMMENDATIONS: We can hold the Plavix for 2-3 days, but should resume not to stop more than 3-4 days, maximum 4 days in order to prevent a subacute stent thrombosis. But there is no active bleeding, hence, we will resume his Plavix. May require a colonoscopy as well. Leave that up to senior housekeeperDr. . DT: 13:10:47 TT: 14:01:00 Ref: [id number] - TID: [id number]
[2024-09-17] MEDS: MELATONIN 3 MG TABLET 9 MG PO (20:41)
[2024-09-17] MEDS: ATORVASTATIN CALCIUM 20 MG TABLET 40 MG PO (20:41)
[2024-09-17] MEDS: PRAMIPEXOLE 0.25 MG TABLET 0.5 MG PO (20:41)
[2024-09-17] MEDS: AMIODARONE HCL 200 MG TABLET PO (20:42)
[2024-09-18] VITALS (14 sets, daily range): BP systolic 111–143; BP diastolic 17–82; PULSE 60–81; RESP 15–20; TEMP 36.1–37; O2SAT 92–100
[2024-09-18] MEDS: HYDROcodone/APAP 5/325 TABLET 1 TAB PO ×2 (06:01→21:03)
[2024-09-18 06:14] LABS: Alanine Aminotransferase 31 U/L (10-49); Albumin, Serum 3.9 gm/dL (3.4-4.8); Albumin/Globulin Ratio 1.4 (1.2-2.2); Alkaline Phosphatase 93 U/L (46-116); Anion Gap 10 (7-16); Aspartate Amino Transferase 22 U/L (0-34); BUN/Creatinine Ratio 10 Ratio (12-20); Bilirubin,Total 0.5 mg/dL (0.3-1.2); Blood Urea Nitrogen 32 mg/dL (9-23); Calcium (Corrected) 9.1 mg/dL (8.5-10.1); Carbon Dioxide 28.1 mMol/L (20.0-31.0); Chloride 98 mMol/L (98-107); Creatinine (Component) 3.3 mg/dL (0.6-1.3); Estimated Creatinine Clearance 24.2 mL/min (>60); Globulin 2.7 gm/dL (2.3-3.5); Glucose 95 mg/dL (74-106); Magnesium 2.2 mg/dL (1.6-2.6); Osmolality,Calculated 278 (275-295); Phosphorous 3.5 mg/dL (2.4-5.1); Potassium 4.3 mMol/L (3.4-5.1); Sodium 136 mMol/L (136-145); Total Protein 6.6 gm/dL (5.7-8.2); eGFR 19 See Note
[2024-09-18 06:47] LABS: Basophils # (Auto) 0.1 Thou/mm3 (0.0-0.2); Basophils % (Auto) 1 % (0-2.5); Eosinophils # (Auto) 0.3 Thou/mm3 (0.0-0.5); Eosinophils % (Auto) 6 % (0-10); Hemoglobin 9.3 g/dL (13.5-16.0); Immature Granulocytes % (Auto) 0 % (0-0); Immature Granulocytes Auto 0.02 Thou/mm3 (0.00-0.00); Lymphocytes % (Auto) 18 % (10-50); Mean Corpuscular HGB Conc 33.2 g/dl (31.0-37.0); Mean Corpuscular Hemoglobin 33.5 pg (25.0-35.0); Mean Corpuscular Volume 101 fL (80-100); Monocytes # (Auto) 0.6 Thou/mm3 (0.0-0.8); Monocytes % (Auto) 10 % (0-12); Neutrophils # (Auto) 3.6 Thou/mm3 (1.8-7.7); Neutrophils % (Auto) 65 % (37-80); Nucleated Red Blood Cell % 0 /100 WBC (0); Platelet Count 197 Thou/mm3 (140-440); RDW Standard Deviation 65.1 fL (35.1-43.9); Red Blood Count 2.78 Miln/mm3 (4.50-5.90); White Blood Count 5.5 Thou/mm3 (3.8-10.6)
--- NOTE | 2024-09-18 09:05 | ESPR_ITS ---
<Statement entered by Braden Donato MD - 09/18/24 13:13> Patient was seen and examined at the bedside. Patient denied any chest pain, shortness of breath and was breathing comfortably while sitting on the chair. RN reported that patient went bradycardic in the 20s and RN stated that he had an episode of V. tach for few seconds however he was asymptomatic that time. Patient is drinking another GoLytely prep as he is still not clear and awaiting colonoscopy. Slasher Machine Operator recommended to keep him 1 more day for dialysis session tomorrow morning to due to schedule difference on holidays. Slasher Machine Operator will update the patient regarding his new dialysis sessions as she decide to keep him now on Tuesdays/ and Saturdays, earlier he was on Tuesdays and Saturdays only. Currently holding Plavix and per cardiology recommendations not to hold for more than 4 days. Therefore we will likely resume it once colonoscopy is completed. Labs showed hemoglobin stable at 9.3. Kidney functions consistent with ESRD. All labs and orders were reviewed. I saw and examined the patient, and I agree with current management stated by Dr Benja RECIO,PGY1. Plan of care was discussed with the attending physician and resident physician. Disclaimer: Despite multiple revisions, due to the dictation software being used, the document bellow may not be free of grammatical errors including phonetic/typographic errors. However, this does not deter from our commitment to providing health care in the patient's best interest in mind. Dr. Tanmay MD, PGY 2 Documentation for date of: 09/18/24 Subjective Subjective Interval history: Patient was seen and examined at bedside this AM. No acute exents overnight. Patient tolerating diet, adequate urine output and mentation is at baseline. Patient has no complaints today and endorses resolution of his SOB and improvement of lower extremity edema. Patient is now on dialysis Thursday//Thursday scheduled Patient had EGD on 09/17/2024 findings include: ? Esophagitis ? Diffuse mild inflammation characterized by erythema in the gastric antrum Currently awaiting colonoscopy once cleared. To resume Plavix after colonoscopy Exam Vital Signs Temp Pulse Resp BP Pulse Ox O2 Del Method O2 Flow Rate 97.5 F 60 17 123/78 96 Nasal Cannula 2 09/18/24 07:56 09/18/24 07:56 09/18/24 07:56 09/18/24 07:56 09/18/24 07:56 09/18/24 07:56 09/18/24 07:56 Narrative Exam Constitutional Alert, oriented x 3 and comfortable. Elderly male on O2 via NC HEENT Vision grossly intact. Patent nares. Trachea midline Respiratory Chest normal on inspection and clear auscultation bilaterally Cardiovascular S1 and S2 audible, RRR. No murmurs carotid bruit. No gross JVD. Abdominal Soft and non tender to palpation in all quadrants. BS + Genitourinary. No bladder tenderness, no flank pain. Normal to palpation . Scrotal edema resolved Musculoskeletal Extremities tone within normal limits. 2+ pitting lower extremity edema up to knees bilaterally?improving Neurological CN II - XII grossly intact. Extremity motor and sensation grossly intact. Skin Warm, dry and intact. No apparent lesions. Psychiatric Patient has good affect, is cooperative Objective Labs 09/18/24 05:13 09/18/24 05:13 Labs: Laboratory Results - last 24 hr 09/15/24 09/18/24 04:42 05:13 WBC 5.5 RBC 2.78 L Hgb 9.3 L Hct 28.0 L MCV 101 H MCH 33.5 MCHC 33.2 RDW Std Deviation 65.1 H Plt Count 197 Neut % (Auto) 65 Lymph % (Auto) 18 [place] % (Auto) 10 Eos % (Auto) 6 Baso % (Auto) 1 Neut # (Auto) 3.6 Lymph # (Auto) 1.0 [place] # (Auto) 0.6 Eos # (Auto) 0.3 Baso # (Auto) 0.1 Immature Gran # (Auto) 0.02 H Absolute Nucleated RBC 0.00 Immature Gran % 0 Nucleated RBC % 0 Sodium 136 Potassium 4.3 Chloride 98 Carbon Dioxide 28.1 Anion Gap 10 BUN 32 H Creatinine 3.3 H D Estim Creat Clear Calc 24.2 L eGFR 19 L BUN/Creatinine Ratio 10 L Glucose 95 Calculated Osmolality 278 Calcium 9.0 Corrected Calcium 9.1 Phosphorus 3.5 Magnesium 2.2 Total Bilirubin 0.5 AST 22 ALT 31 Alkaline Phosphatase 93 Total Protein 6.6 Albumin 3.9 Globulin 2.7 Albumin/Globulin Ratio 1.4 Blood Type O Positive Antibody Screen NEGATIVE Crossmatch See Detail Blood Bank Wristband ID Yes Quality Measures Quality Measures VTE prophylaxis Advance care planning discussed with:: other Assessment & Plan Assessment Current Active Medications: Generic Name Dose Route Start Last Admin Trade Name Renay PRN Reason Stop Dose Admin Acetaminophen 650 mg 09/15/24 11:51 Acetaminophen 325 Mg Tablet PO 10/15/24 11:50 Q6H PRN Fever >100.4 or pain Protocol Hydrocodone Bitart/Acetaminophen 1 tab 09/15/24 11:51 09/18/24 06:01 Hydrocodone/Apap 5/325 Tablet PO 09/20/24 11:50 1 tab Q4HR PRN Administration PAIN SCALE 4-6 (Moderate Amiodarone HCl 200 mg 09/15/24 14:00 09/17/24 20:42 Amiodarone Hcl 200 Mg Tablet PO 10/15/24 13:59 200 mg BID VIKRAM Administration Aspirin 81 mg 09/15/24 12:00 09/17/24 09:00 Aspirin Ec 81 Mg Tabec PO 10/15/24 11:59 Not Given QDAY VIKRAM Atorvastatin Calcium 40 mg 09/15/24 21:00 09/17/24 20:41 Atorvastatin Calcium 20 Mg Tablet PO 10/15/24 20:59 40 mg HS VIKRAM Administration Dextrose 25 ml 09/15/24 11:51 Dextrose 50%-Water Inj 50 Ml Syringe IV 10/15/24 11:50 Q15MIN PRN BG 50-70 responsive npo pt Dextrose 50 ml 09/15/24 11:51 Dextrose 50%-Water Inj 50 Ml Syringe IV 10/15/24 11:50 Q15MIN PRN BG <50 OR BG <70 & pt unresponsive Furosemide 20 mg 09/17/24 09:00 09/17/24 09:00 Furosemide Inj 10 Mg/Ml Vial 2 Ml IVP 10/17/24 08:59 Not Given DAILY VIKRAM Glucagon 1 mg 09/15/24 11:51 Glucagon Inj 1 Mg Vial IM Q15MIN PRN BG <70, and no IV access Albumin Human 25 gm in 100 mls @ 100 mls/min 09/15/24 09:15 Albuminar-25 Ivpb IV PRN PRN DIALYSIS Insulin Human Lispro 0 unit 09/15/24 17:00 09/18/24 07:12 Insulin Lispro (Admelog) 1 Unit/0.01 Ml Unit SC 10/15/24 16:59 Not Given ACHS VIKRAM Protocol Melatonin 9 mg 09/15/24 20:41 09/17/24 20:41 Melatonin 3 Mg Tablet PO 9 mg HS PRN Administration Insomnia Pantoprazole Sodium 40 mg 09/16/24 09:00 09/17/24 09:00 Pantoprazole Inj 40 Mg Vial IVP 10/16/24 08:59 Not Given QDAY VIKRAM Pramipexole Dihydrochloride 0.5 mg 09/15/24 21:00 09/17/24 20:41 Pramipexole 0.25 Mg Tablet PO 10/15/24 20:59 0.5 mg BID VIKRAM Administration Sennosides 2 tab 09/15/24 11:51 Senna Tablet PO 10/15/24 11:50 BID PRN CONSTIPATION Protocol Vitamin B Complex/Vit C/Folic Acid 1 tab 09/16/24 09:00 09/17/24 09:00 Vit B12/Vit C/Fa (Nephrovite) Tablet PO 10/16/24 08:59 Not Given QDAY VIKRAM Plan Giancarlo Martino is a 74 year old male with past medical history of CAD with multiple stents, ESRD(on dialysis Thursday and Thursday since 2022), HFrEF [35-40%], NIDDM type II [6], atrial flutter, and ICD placement. Presented today with a chief complaint of SOB. Patient will be admitted for volume overload requiring hemodialysis. 1. Anasarca secondary to inadequate fluid removal from hemodialysis - resolving 2. End-stage renal disease on hemodialysis via right radial AV fistula [Tuesdays//Saturdays] On admission patient had severe SOB at rest and unable to complete full sentences. Chest x-ray significant for bilateral flash pulmonary edema without any signs of consolidation. On 09/15 patient had emergent hemodialysis with a goal of 3L Ultrafiltration Nephrology now recommends patient increase to 3 times weekly Dialysis. Thursday??Thursday Spoke with Dr Azevedo who said that outpatient dialysis will be closed on Thursday and patient may need dialysis in hospital on 09/19/2024 prior to discharge. Plan: ? Strict input output charting ? 2G sodium restricted renal diet ? 1500 cc/day fluid restriction ? Daily weights ? Continue Hemodialysis as per Nephrology ? Nephrology, Dr Azevedo consulted and is closely following the case. Appreciate recommendations 3. Acute decompensated chronic systolic congestive heart failure with reduced ejection fraction [35-40%] - resolving On admission patient had severe SOB at rest and unable to complete full sentences. On exam patient had wheezing and crackles heard throughout all lung bermudez bilaterally. Also had lower extremity 2+ pitting edema up to knees bilaterally with scrotal edema. Chest x-ray significant for bilateral flash pulmonary edema without any signs of consolidation. BNP elevated at 2630 which is above patient's baseline of 900s from chart review. Patient's home diuretic furosemide 20 Mg p.o. daily Plan: ? Strict input output charting ? 2G sodium restricted renal diet ? 1500 cc/day fluid restriction ? Daily weights - Continue Lasix 20mg IV daily for diuresis as patient still produces urine ? Beta-nichol on hold for now in light of acute heart failure exacerbation ? GDMT also on hold for now to give blood pressure room for extra hemodialysis for additional fluid removal. Will consider restarting prior to discharge ? Cardiology, Dr. Armnai Morgan consulted and is closely following the case. Appreciate recommendations 4. Chronic Normocytic Anemia From chart review baseline Hb between 8-10. On this admission Hb 7.5 Post 1 unit PRBC Hb 8.4 Due to patient's past history of CAD s/p stent, July 2024, his health and fitness instructor Dr. Armani Morgan recommended to maintain hemoglobin >8/8.5 to reduce risk of MACE 09/15/2024: Stool for occult blood negative Patient had EGD on 09/17/2024 findings include: ? Esophagitis ? Diffuse mild inflammation characterized by erythema in the gastric antrum Plan: ? Clear liquid diet ? GoLytely bowel prep ? For colonoscopy once cleared as per GI recommendations ? GI, Dr. Collier consulted and is closely following the case. Appreciate recommendations. 5. ICD in situ due to risk of sudden cardiac 6. Coronary artery disease s/p 3 stents 7. History of atrial flutter 8. Hyperlipidemia Patient had 2 stents coronary stents last year and 1 recent stent July 2024. Patient on dual antiplatelet therapy with aspirin and Plavix. [id number]: 5 points; 7.2% stroke risk per year. Plan: ?Continue home medication ASA 81 Mg p.o. daily ? Continue home medication amiodarone 200 Mg p.o. twice daily - Continue home medication atorvastatin 40 mg po HS ? Hold Plavix for now until after colonoscopy. Not to exceed greater than 4 days without Plavix due to risk of stent thrombosis as per cardiology recommendations 9. [id number] diabetes type 2 [6] Patient's home medication Jardiance 12.5 Mg Plan: ? Sliding scale insulin to cover for any glucose spikes 10. Essential hypertension On admission patient's BP 128/71. Currently BP 121/76 Patient's home medication hydralazine 25 Mg p.o. twice daily Plan: ? Antihypertensives on hold for now to give blood pressure room for dialysis 11. DVT ruled out Patient has bilateral lower extremity swelling most likely secondary to fluid overload and inadequate dialysis as well as CHF exacerbation. However his left calf appears larger than his right on exam. Patient had bilateral lower extremity venous Doppler completed on 09/16/2024 findings include: All visualized deep veins exhibit compressibility. Negative for deep vein thrombosis 12. Asymptomatic bradycardia medical records technician called to informed of episode of bradycardia with rates in the 20s and brief episode of nonsustained V. tach. Stat EKG was ordered which showed electronically paced rhythm, rate 60 with incomplete RBBB in V2. Increased QTc [address] elevation or depression Plan: ? Continue to monitor telemetry Health maintenance: Disposition: Dialysis as per Nephrology. For colonoscopy once clear. Diet: cardiac and renal Lines: pIVs GI Prophylaxis:Pantoprazole Thrombo Prophylaxis: SCDs Code status: FULL CODE Plan of care discussed with Attending Dr. Godinez and PGY2 Dr. Tanmay Yousif MD PGY 1 Attending Provider Attestation/Addendum I have discussed and was present for the essential components of the history, physical examination, diagnosis, and treatment plan with the resident. I agree with the patient's care as documented by the resident and amended herein by me. Black Godinez, DO. Colonoscopy today if prepped adequately, more GoLytely given. Hemodialysis scheduled for tomorrow however patient is upset he has to stay for hemodialysis however it was explained to him that chair time over Emiliano and scheduling can be difficult. Will reach out to nephrology for further recommendations. Although this document has been carefully reviewed, there may still be some phonetic and other typographical errors. These errors are purely grammatical due to imperfections in the software program and should not be construed in any way to compromise the substance of the patient's medical care during this visit.
[2024-09-18] MEDS: FUROSEMIDE INJ 10 MG/ML VIAL 2 ML 20 MG IVP (09:47)
[2024-09-18] MEDS: PANTOPRAZOLE INJ 40 MG VIAL IVP (09:47)
[2024-09-18] MEDS: PRAMIPEXOLE 0.25 MG TABLET 0.5 MG PO ×2 (09:47→21:01)
[2024-09-18] MEDS: AMIODARONE HCL 200 MG TABLET PO ×2 (09:48→21:01)
[2024-09-18] MEDS: ASPIRIN EC 81 MG TABEC PO (09:48)
[2024-09-18] MEDS: VIT B12/Vit C/FA (Nephrovite) TABLET 1 TAB PO (09:48)
--- NOTE | 2024-09-18 11:16 | PD.RESPRO ---
Documentation for date of: 09/18/24 Subjective Subjective Interval history: The patient is a 74-year old male with a previous medical history of end-stage renal disease on hemodialysis on Thursday and Thursday, CAD status post multiple stent placement, last PCI with stent placement 08/09/24, s/p pacemaker placement, CHF, type 2 diabetes, A-fib, who came to the ED with weakness, shortness of breath and increased leg edema. Patient reports he is supposed to receive home oxygen, and does not use it yet. He came to the ED a few days ago, was sent from the dialysis center due to low hemoglobin level, was supposed to receive blood transfusion, but left before receiving it. He was sent by his PCP again to receive blood transfusion. Last dialysis session was on Thursday this week. ED course: Blood pressure 128/71, saturating well on 2 L of nasal cannula, afebrile. Labs showed hemoglobin 7.5, sodium 139, potassium 4.4, BUN 62, creatinine 4.4, EGFR 16, glucose 228, AST 49, ALT 57. Troponin I was +0.135 on 09/13/2024, downtrending to 0.079 on 09/15/2024, BNP 2630. Chest x-ray 09/13/2024 showed mild CHF and significant bilateral pneumonia. EKG showed atrial and ventricular pacing. Patient started on home clopidogrel and aspirin. Brake Repairer Hydraulic Dr. Azevedo was consulted due to fluid overload and anemia caused by ESRD. Due to fluid overload patient underwent emergent dialysis with goal to remove 3 L of fluid and transfuse 1 unit of blood. 09/16/24: Patient was seen and examined by the bedside. No acute overnight events. Patient reports feeling better. Patient had a hemodialysis session yesterday and received 1 unit of pRBC. Labs showed Hgb 8.4, Hct 26.1, Na 137, K 4.4, BUN 45, Cr 3.8, eGFR 16. GI was consulted today, pending recommendations. 09/17/2024: Patient seen, receiving dialysis complains of generalized body pain, patient is fluid overloaded, plan to remove about 4 L worth of fluid today along with transfusion of PRBC. Labs today show hemoglobin 8.5, hematocrit 26.8. Patient undergoing GI workup for suspected GI bleed. Scheduled for EGD today. 09/18/24: Patient was seen and examined by the bedside. No acute overnight events. Patient is feeling well, reports feeling less weak. Labs showed hemoglobin 9.3, hematocrit 28%, sodium 136, potassium 4.3, BUN 32, creatinine 3.3, EGFR 19. Denies nausea vomiting, bloody stools. EGD did not reveal signs of bleeding, patient continues to drink GoLytely, pending colonoscopy. Patient will stay 1 more day to receive dialysis due to holiday schedule. Exam Vital Signs Temp Pulse Resp BP Pulse Ox O2 Del Method O2 Flow Rate 97.5 F 60 17 123/78 96 Nasal Cannula 2 09/18/24 07:56 09/18/24 09:48 09/18/24 07:56 09/18/24 09:48 09/18/24 07:56 09/18/24 07:56 09/18/24 07:56 Narrative Exam Physical Exam General: Awake and in no acute distress. Conversational and non-toxic appearing. Decreased hearing. HEENT: Normocephalic, atraumatic, mucous membranes moist. Heart: Regular rate and rhythm, no murmurs. Lungs: Clear to auscultation with no wheezing or crackles. Abdomen: Soft, nondistended, nontender, positive bowel sounds. ?No guarding or rebound tenderness. Neurologic: Alert and oriented x3, no gross neurological deficit, and patient able to move all 4 extremities. Extremities: 1+ bilateral leg edema. Skin: No rash or ecchymoses. Objective Labs 09/19/24 05:12 09/19/24 05:12 Labs: Laboratory Results - last 24 hr 09/18/24 05:13 WBC 5.5 RBC 2.78 L Hgb 9.3 L Hct 28.0 L MCV 101 H MCH 33.5 MCHC 33.2 RDW Std Deviation 65.1 H Plt Count 197 Neut % (Auto) 65 Lymph % (Auto) 18 [place] % (Auto) 10 Eos % (Auto) 6 Baso % (Auto) 1 Neut # (Auto) 3.6 Lymph # (Auto) 1.0 [place] # (Auto) 0.6 Eos # (Auto) 0.3 Baso # (Auto) 0.1 Immature Gran # (Auto) 0.02 H Absolute Nucleated RBC 0.00 Immature Gran % 0 Nucleated RBC % 0 Sodium 136 Potassium 4.3 Chloride 98 Carbon Dioxide 28.1 Anion Gap 10 BUN 32 H Creatinine 3.3 H D Estim Creat Clear Calc 24.2 L eGFR 19 L BUN/Creatinine Ratio 10 L Glucose 95 Calculated Osmolality 278 Calcium 9.0 Corrected Calcium 9.1 Phosphorus 3.5 Magnesium 2.2 Total Bilirubin 0.5 AST 22 ALT 31 Alkaline Phosphatase 93 Total Protein 6.6 Albumin 3.9 Globulin 2.7 Albumin/Globulin Ratio 1.4 Quality Measures Quality Measures VTE prophylaxis Advance care planning discussed with:: other Assessment & Plan Assessment Current Active Medications: Generic Name Dose Route Start Last Admin Trade Name Freq PRN Reason Stop Dose Admin Acetaminophen 650 mg 09/15/24 11:51 Acetaminophen 325 Mg Tablet PO 10/15/24 11:50 Q6H PRN Fever >100.4 or pain Protocol Hydrocodone Bitart/Acetaminophen 1 tab 09/15/24 11:51 09/18/24 06:01 Hydrocodone/Apap 5/325 Tablet PO 09/20/24 11:50 1 tab Q4HR PRN Administration PAIN SCALE 4-6 (Moderate Amiodarone HCl 200 mg 09/15/24 14:00 09/18/24 09:48 Amiodarone Hcl 200 Mg Tablet PO 10/15/24 13:59 200 mg BID VIKRAM Administration Aspirin 81 mg 09/15/24 12:00 09/18/24 09:48 Aspirin Ec 81 Mg Tabec PO 10/15/24 11:59 81 mg QDAY VIKRAM Administration Atorvastatin Calcium 40 mg 09/15/24 21:00 09/17/24 20:41 Atorvastatin Calcium 20 Mg Tablet PO 10/15/24 20:59 40 mg HS VIKRAM Administration Dextrose 25 ml 09/15/24 11:51 Dextrose 50%-Water Inj 50 Ml Syringe IV 10/15/24 11:50 Q15MIN PRN BG 50-70 responsive npo pt Dextrose 50 ml 09/15/24 11:51 Dextrose 50%-Water Inj 50 Ml Syringe IV 10/15/24 11:50 Q15MIN PRN BG <50 OR BG <70 & pt unresponsive Furosemide 20 mg 09/17/24 09:00 09/18/24 09:47 Furosemide Inj 10 Mg/Ml Vial 2 Ml IVP 10/17/24 08:59 20 mg DAILY VIKRAM Administration Glucagon 1 mg 09/15/24 11:51 Glucagon Inj 1 Mg Vial IM Q15MIN PRN BG <70, and no IV access Albumin Human 25 gm in 100 mls @ 100 mls/min 09/15/24 09:15 Albuminar-25 Ivpb IV PRN PRN DIALYSIS Insulin Human Lispro 0 unit 09/15/24 17:00 09/18/24 07:12 Insulin Lispro (Admelog) 1 Unit/0.01 Ml Unit SC 10/15/24 16:59 Not Given ACHS VIKRAM Protocol Melatonin 9 mg 09/15/24 20:41 09/17/24 20:41 Melatonin 3 Mg Tablet PO 9 mg HS PRN Administration Insomnia Pantoprazole Sodium 40 mg 09/16/24 09:00 09/18/24 09:47 Pantoprazole Inj 40 Mg Vial IVP 10/16/24 08:59 40 mg QDAY VIKRAM Administration Pramipexole Dihydrochloride 0.5 mg 09/15/24 21:00 09/18/24 09:47 Pramipexole 0.25 Mg Tablet PO 10/15/24 20:59 0.5 mg BID VIKRAM Administration Sennosides 2 tab 09/15/24 11:51 Senna Tablet PO 10/15/24 11:50 BID PRN CONSTIPATION Protocol Vitamin B Complex/Vit C/Folic Acid 1 tab 09/16/24 09:00 09/18/24 09:48 Vit B12/Vit C/Fa (Nephrovite) Tablet PO 10/16/24 08:59 1 tab QDAY VIKRAM Administration Plan The patient is a 74-year old male with a previous medical history of end-stage renal disease on hemodialysis on Thursday and Thursday, CAD status post multiple stent placement, last PCI with stent placement 08/09/24, s/p pacemaker placement, CHF, type 2 diabetes, A-fib, who came to the ED with weakness, shortness of breath and increased leg edema. Brake Repairer Hydraulic Dr. Azevedo was consulted due to fluid overload and anemia caused by ESRD. Due to fluid overload patient underwent emergent dialysis with goal to remove 3 L of fluid and transfuse 1 unit of pRBC. #ESRD on HD () #Chronic severe anemia #Acute hypoxic respiratory failure, resolved Most likely due to fluid overload. Patient denies eating salty food and was inquiring about how to count fluid intake. Patient was explained that he needs to restrict fluid and he was also suggested to do dialysis 3 times per week. Plan: - Patient will receive dialysis treatment tomorrow on Thursday - Patient's dialysis schedule outpatient will be 3 session per week e/Kiara/Sat - strict I's and O's - fluid restriction 1500 ml - renal diet - monitor CBC, transfuse if Hgb <7 - dialysis as scheduled 3 times a week. -Undergoing GI workup #CAD s/p stent, pacemaker placement #CHF #A-fib #T2DM - management per primary team Plan of care discussed with attending Dr. Jolly Baugh MD, PGY 1. Attending Provider Attestation/Addendum Patient seen and examined with resident physician Dr. Del Rio. Note reviewed, agree with findings and recommendations. Next dialysis scheduled for tomorrow to catch up with the schedule.
--- NOTE | 2024-09-18 11:19 | EKG_ITS ---
[facility] Test Date: 2024-09-18 Pat Name: ANGELICA LAU Department: Room: S358A Gender: Male Senior Manager Quality Assurance: YESY : 1950 Requested By: Braden Donato Order Number: [id number] Reading MD: Braden Donato Measurements Intervals [place] Rate: 60 P: -46 [place]: 254 QRS: -47 QRSD: 201 T: 120 QT: 493 QTc: 493 Interpretive Statements ELECTRONIC ATRIAL PACEMAKER ELECTRONIC VENTRICULAR PACEMAKER ABNORMAL RHYTHM ECG Compared to ECG 09/15/2024 05:29:31 No significant changes /store/S0/[id number]
--- NOTE | 2024-09-18 11:19 | PC.NURSE ---
Dr. Godinez and resident team made aware at bedside of call from packaging tech, patient had a period of bradycardia with heart rate in the 20s, bedside assessment of patient, patient was asymptomatic BP 132/84, patient states he feels fine.
[2024-09-18] MEDS: NA SU/NAHCO3/KC/PEG (Golytely) 4,000 ML BTL 4000 ML PO (11:45)
--- NOTE | 2024-09-18 13:50 | PC.SS ---
Rounding: Pending colonoscopy
--- NOTE | 2024-09-18 15:12 | ESPR_ITS ---
Documentation for date of: 09/18/24 Subjective Subjective Interval history: Patient was scheduled for a colonoscopy He is not clear Additional GoLytely Procedure scheduled for tomorrow Exam Vital Signs Temp Pulse Resp BP Pulse Ox O2 Del Method O2 Flow Rate 96.9 F 60 17 143/82 H 98 Nasal Cannula 2 09/18/24 11:37 09/18/24 12:00 09/18/24 11:37 09/18/24 11:37 09/18/24 11:37 09/18/24 11:37 09/18/24 11:37 Objective Labs 09/19/24 05:12 09/19/24 05:12 Labs: Laboratory Results - last 24 hr 09/18/24 05:13 WBC 5.5 RBC 2.78 L Hgb 9.3 L Hct 28.0 L MCV 101 H MCH 33.5 MCHC 33.2 RDW Std Deviation 65.1 H Plt Count 197 Neut % (Auto) 65 Lymph % (Auto) 18 [place] % (Auto) 10 Eos % (Auto) 6 Baso % (Auto) 1 Neut # (Auto) 3.6 Lymph # (Auto) 1.0 [place] # (Auto) 0.6 Eos # (Auto) 0.3 Baso # (Auto) 0.1 Immature Gran # (Auto) 0.02 H Absolute Nucleated RBC 0.00 Immature Gran % 0 Nucleated RBC % 0 Sodium 136 Potassium 4.3 Chloride 98 Carbon Dioxide 28.1 Anion Gap 10 BUN 32 H Creatinine 3.3 H D Estim Creat Clear Calc 24.2 L eGFR 19 L BUN/Creatinine Ratio 10 L Glucose 95 Calculated Osmolality 278 Calcium 9.0 Corrected Calcium 9.1 Phosphorus 3.5 Magnesium 2.2 Total Bilirubin 0.5 AST 22 ALT 31 Alkaline Phosphatase 93 Total Protein 6.6 Albumin 3.9 Globulin 2.7 Albumin/Globulin Ratio 1.4 Impressions Impression: # Acute posthemorrhagic anemia Additional GoLytely Colonoscopy rescheduled for tomorrow Assessment & Plan A&P Narrative # Anemia multifactorial one of the reasons could be anemia of blood loss Suggestions Fiberoptic esophagogastroduodenoscopy with possible therapeutic intervention possible biopsy under intravenous moderate sedation Was scheduled for today however just before the procedure time patient excellently was given orange juice I canceled the procedure and has been rescheduled for tomorrow morning Would also recommend iron panel B12 and folate level Will follow the patient Other medical problems include # Congestive heart failure # Coronary artery disease with stable angina # End-stage renal disease on hemodialysis # Diabetes mellitus type 2 Thank you very much for the opportunity to participate in the care of this patient Time Spent With Patient Time: Total time spent is greater than 50% in coordination of care (as documented) at patient's floor/unit and/or counseling patient:
[2024-09-18] MEDS: ATORVASTATIN CALCIUM 20 MG TABLET 40 MG PO (21:01)
[2024-09-19] VITALS (39 sets, daily range): BP systolic 132–166; BP diastolic 70–92; PULSE 59–67; RESP 11–21; TEMP 36.3–36.9; O2SAT 93–100; BMI 28.4
[2024-09-19] MEDS: HYDROcodone/APAP 5/325 TABLET 1 TAB PO ×2 (02:20→13:07)
--- NOTE | 2024-09-19 03:18 | ESPR_ITS ---
RE: ANGELICA LAU : 1950 DATE OF SERVICE: 09/18/2024 SUBJECTIVE: The patient is feeling better, wants to go home, is a 74-year-old male with history of CAD, multiple stent placement __ possible GI bleeding, undergoing endoscopy and also colonoscopy. Endoscopy showed some gastritis He does not complain of any chest pain or shortness of breath. He underwent dialysis, yesterday possibly due for dialysis again tomorrow. CLINICAL EXAMINATION: General: Sitting comfortably, alert, awake, in no acute distress today. Vital Signs: His blood pressure is 116/70 and pulse rate 64 and regular. HEENT: Head is atraumatic and normocephalic. Eyes normal. ENT normal. Neck: Supple. No JVD. Carotid pulses felt with no bruits. Chest: Symmetrical. Lungs: Decreased breath sounds. No rales or rhonchi. Heart: S1 and S2, regular. No gallops. There is systolic murmur heard at aortic area and left sternal border. Extremities: No edema. LABORATORY DATA: Showed the creatinine is 3.3 and BUN 30. The hemoglobin is improved to 9.3 and hematocrit 28. IMPRESSION: 1. Gastrointestinal bleeding, stabilized. Hemoglobin is stable. 2. Coronary artery disease, status post multivessel stent placement. 3. Chronic kidney disease, on hemodialysis. RECOMMENDATIONS: I am okay the patient to be discharged home. Resume the Plavix 75 mg daily after colonoscopy if there are no issues or active bleeding. Dr. Azevedo is already following him. The patient will begin erythropoietin to improve red cell count. DT: 23:32:02 TT: 02:16:00 Ref: [id number] - TID: [id number] [facility]
[2024-09-19 05:50] LABS: Basophils # (Auto) 0.1 Thou/mm3 (0.0-0.2); Basophils % (Auto) 2 % (0-2.5); Eosinophils # (Auto) 0.4 Thou/mm3 (0.0-0.5); Eosinophils % (Auto) 7 % (0-10); Hematocrit 27.3 % (41.0-53.0); Immature Granulocytes % (Auto) 0 % (0-0); Immature Granulocytes Auto 0.01 Thou/mm3 (0.00-0.00); Lymphocytes # (Auto) 1.1 Thou/mm3 (1.0-4.8); Lymphocytes % (Auto) 21 % (10-50); Mean Corpuscular Hemoglobin 32.7 pg (25.0-35.0); Mean Corpuscular Volume 99 fL (80-100); Monocytes # (Auto) 0.6 Thou/mm3 (0.0-0.8); Monocytes % (Auto) 11 % (0-12); Neutrophils # (Auto) 3.2 Thou/mm3 (1.8-7.7); Neutrophils % (Auto) 60 % (37-80); Nucleated Red Blood Cell % 0 /100 WBC (0); Platelet Count 203 Thou/mm3 (140-440); RDW Standard Deviation 62.9 fL (35.1-43.9); Red Blood Count 2.75 Miln/mm3 (4.50-5.90); White Blood Count 5.3 Thou/mm3 (3.8-10.6)
[2024-09-19 06:23] LABS: Alanine Aminotransferase 28 U/L (10-49); Albumin, Serum 3.7 gm/dL (3.4-4.8); Albumin/Globulin Ratio 1.4 (1.2-2.2); Alkaline Phosphatase 87 U/L (46-116); Anion Gap 14 (7-16); Aspartate Amino Transferase 27 U/L (0-34); BUN/Creatinine Ratio 9 Ratio (12-20); Bilirubin,Total 0.5 mg/dL (0.3-1.2); Blood Urea Nitrogen 32 mg/dL (9-23); Calcium 9.4 mg/dL (8.3-10.6); Calcium (Corrected) 9.6 mg/dL (8.5-10.1); Carbon Dioxide 27.1 mMol/L (20.0-31.0); Chloride 100 mMol/L (98-107); Creatinine (Component) 3.7 mg/dL (0.6-1.3); Estimated Creatinine Clearance 21.6 mL/min (>60); Globulin 2.6 gm/dL (2.3-3.5); Glucose 89 mg/dL (74-106); Magnesium 2.3 mg/dL (1.6-2.6); Osmolality,Calculated 287 (275-295); Phosphorous 3.9 mg/dL (2.4-5.1); Sodium 141 mMol/L (136-145); Total Protein 6.3 gm/dL (5.7-8.2); eGFR 17 See Note
--- NOTE | 2024-09-19 07:54 | PD.RESPRO ---
Documentation for date of: 09/19/24 Subjective Subjective Interval history: Patient was seen and examined at bedside this AM. No acute exents overnight. Patient tolerating clear liquid diet, adequate urine output and mentation is at baseline. Patient has no complaints today and endorses resolution of his SOB and improvement of lower extremity edema. Patient is now on dialysis Thursday//Thursday scheduled Dialysis center closed on Thursday due to holiday schedule. Patient will receive dialysis in hospital today and we anticipate discharge within the next 24 to 48 hours. Currently awaiting colonoscopy scheduled for today. Yesterday patient had juice prior to procedure and it had to be postponed. To resume Plavix after colonoscopy Exam Vital Signs Temp Pulse Resp BP Pulse Ox O2 Del Method O2 Flow Rate 98.4 F 65 16 140/75 H 98 Nasal Cannula 2 09/19/24 07:49 09/19/24 07:49 09/19/24 07:49 09/19/24 07:49 09/19/24 07:49 09/19/24 07:49 09/19/24 07:49 Narrative Exam Constitutional Alert, oriented x 3 and comfortable. Elderly male on O2 via NC HEENT Vision grossly intact. Patent nares. Trachea midline Respiratory Chest normal on inspection and clear auscultation bilaterally Cardiovascular S1 and S2 audible, RRR. No murmurs carotid bruit. No gross JVD. Abdominal Soft and non tender to palpation in all quadrants. BS + Genitourinary. No bladder tenderness, no flank pain. Normal to palpation . Scrotal edema resolved Musculoskeletal Extremities tone within normal limits. 2+ pitting lower extremity edema up to knees bilaterally?improving Neurological CN II - XII grossly intact. Extremity motor and sensation grossly intact. Skin Warm, dry and intact. No apparent lesions. Psychiatric Patient has good affect, is cooperative Objective Labs 09/19/24 05:12 09/19/24 05:12 Labs: Laboratory Results - last 24 hr 09/19/24 05:12 WBC 5.3 RBC 2.75 L Hgb 9.0 L Hct 27.3 L MCV 99 MCH 32.7 MCHC 33.0 RDW Std Deviation 62.9 H Plt Count 203 Neut % (Auto) 60 Lymph % (Auto) 21 Graham % (Auto) 11 Eos % (Auto) 7 Baso % (Auto) 2 Neut # (Auto) 3.2 Lymph # (Auto) 1.1 Graham # (Auto) 0.6 Eos # (Auto) 0.4 Baso # (Auto) 0.1 Immature Gran # (Auto) 0.01 H Absolute Nucleated RBC 0.00 Immature Gran % 0 Nucleated RBC % 0 Sodium 141 Potassium 4.0 Chloride 100 Carbon Dioxide 27.1 Anion Gap 14 BUN 32 H Creatinine 3.7 H Estim Creat Clear Calc 21.6 L eGFR 17 L BUN/Creatinine Ratio 9 L Glucose 89 Calculated Osmolality 287 Calcium 9.4 Corrected Calcium 9.6 Phosphorus 3.9 Magnesium 2.3 Total Bilirubin 0.5 AST 27 ALT 28 Alkaline Phosphatase 87 Total Protein 6.3 Albumin 3.7 Globulin 2.6 Albumin/Globulin Ratio 1.4 Quality Measures Quality Measures VTE prophylaxis Assessment & Plan Assessment Current Active Medications: Generic Name Dose Route Start Last Admin Trade Name Freq PRN Reason Stop Dose Admin Acetaminophen 650 mg 09/15/24 11:51 Acetaminophen 325 Mg Tablet PO 10/15/24 11:50 Q6H PRN Fever >100.4 or pain Protocol Hydrocodone Bitart/Acetaminophen 1 tab 09/15/24 11:51 09/19/24 02:20 Hydrocodone/Apap 5/325 Tablet PO 09/20/24 11:50 1 tab Q4HR PRN Administration PAIN SCALE 4-6 (Moderate Amiodarone HCl 200 mg 09/15/24 14:00 09/18/24 21:01 Amiodarone Hcl 200 Mg Tablet PO 10/15/24 13:59 200 mg BID VIKRAM Administration Aspirin 81 mg 09/15/24 12:00 09/18/24 09:48 Aspirin Ec 81 Mg Tabec PO 10/15/24 11:59 81 mg QDAY VIKRAM Administration Atorvastatin Calcium 40 mg 09/15/24 21:00 09/18/24 21:01 Atorvastatin Calcium 20 Mg Tablet PO 10/15/24 20:59 40 mg HS VIKRAM Administration Clopidogrel Bisulfate 75 mg 09/19/24 09:00 Clopidogrel Bisulfate 75 Mg Tablet PO 10/19/24 08:59 QDAY VIKRAM Dextrose 25 ml 09/15/24 11:51 Dextrose 50%-Water Inj 50 Ml Syringe IV 10/15/24 11:50 Q15MIN PRN BG 50-70 responsive npo pt Dextrose 50 ml 09/15/24 11:51 Dextrose 50%-Water Inj 50 Ml Syringe IV 10/15/24 11:50 Q15MIN PRN BG <50 OR BG <70 & pt unresponsive Furosemide 20 mg 09/17/24 09:00 09/18/24 09:47 Furosemide Inj 10 Mg/Ml Vial 2 Ml IVP 10/17/24 08:59 20 mg DAILY VIKRAM Administration Glucagon 1 mg 09/15/24 11:51 Glucagon Inj 1 Mg Vial IM Q15MIN PRN BG <70, and no IV access Albumin Human 25 gm in 100 mls @ 100 mls/min 09/15/24 09:15 Albuminar-25 Ivpb IV PRN PRN DIALYSIS Insulin Human Lispro 0 unit 09/15/24 17:00 09/18/24 20:05 Insulin Lispro (Admelog) 1 Unit/0.01 Ml Unit SC 10/15/24 16:59 Not Given ACHS VIKRAM Protocol Melatonin 9 mg 09/15/24 20:41 09/17/24 20:41 Melatonin 3 Mg Tablet PO 9 mg HS PRN Administration Insomnia Pantoprazole Sodium 40 mg 09/16/24 09:00 09/18/24 09:47 Pantoprazole Inj 40 Mg Vial IVP 10/16/24 08:59 40 mg QDAY VIKRAM Administration Pramipexole Dihydrochloride 0.5 mg 09/15/24 21:00 09/18/24 21:01 Pramipexole 0.25 Mg Tablet PO 10/15/24 20:59 0.5 mg BID VIKRAM Administration Sennosides 2 tab 09/15/24 11:51 Senna Tablet PO 10/15/24 11:50 BID PRN CONSTIPATION Protocol Vitamin B Complex/Vit C/Folic Acid 1 tab 09/16/24 09:00 09/18/24 09:48 Vit B12/Vit C/Fa (Nephrovite) Tablet PO 10/16/24 08:59 1 tab QDAY VIKRAM Administration Plan Giancarlo Martino is a 74 year old male with past medical history of CAD with multiple stents, ESRD(on dialysis Thursday and Thursday since 2022), HFrEF [35-40%], NIDDM type II [6], atrial flutter, and ICD placement. Presented today with a chief complaint of SOB. Patient will be admitted for volume overload requiring hemodialysis. 1. Anasarca secondary to inadequate fluid removal from hemodialysis - resolving 2. End-stage renal disease on hemodialysis via right radial AV fistula [Tuesdays//Saturdays] On admission patient had severe SOB at rest and unable to complete full sentences. Chest x-ray significant for bilateral flash pulmonary edema without any signs of consolidation. On 09/15 patient had emergent hemodialysis with a goal of 3L Ultrafiltration Nephrology now recommends patient increase to 3 times weekly Dialysis. Thursday??Thursday Spoke with Dr Azevedo who said that outpatient dialysis will be closed on Thursday and patient may need dialysis in hospital on 09/19/2024 prior to discharge. Patient scheduled for colonoscopy and hemodialysis today. Plan: ? Strict input output charting ? 2G sodium restricted renal diet ? 1500 cc/day fluid restriction ? Daily weights ? Continue Hemodialysis as per Nephrology ? Nephrology, Dr Azevedo consulted and is closely following the case. Appreciate recommendations 3. Acute decompensated chronic systolic congestive heart failure with reduced ejection fraction [35-40%] - resolving On admission patient had severe SOB at rest and unable to complete full sentences. On exam patient had wheezing and crackles heard throughout all lung bermudez bilaterally. Also had lower extremity 2+ pitting edema up to knees bilaterally with scrotal edema. Chest x-ray significant for bilateral flash pulmonary edema without any signs of consolidation. BNP elevated at 2630 which is above patient's baseline of 900s from chart review. Patient's home diuretic furosemide 20 Mg p.o. daily Today patient's SOB has resolved and on exam his lungs are clear to auscultation. He still has 2+ pitting edema up to his knees bilaterally but scrotal edema has resolved. Plan: ? Strict input output charting ? 2G sodium restricted renal diet ? 1500 cc/day fluid restriction ? Daily weights - Continue Lasix 20mg IV daily for diuresis as patient still produces urine ? Beta-nichol on hold for now in light of acute heart failure exacerbation ? GDMT also on hold for now to give blood pressure room for extra hemodialysis for additional fluid removal. Will consider restarting prior to discharge ? Cardiology, Dr. Armani Morgan consulted and is closely following the case. Appreciate recommendations 4. Chronic Normocytic Anemia From chart review baseline Hb between 8-10. On this admission Hb 7.5 Post 1 unit PRBC Hb 8.4 Due to patient's past history of CAD s/p stent, July 2024, his deburring and tooling machine operator Dr. Armani Morgan recommended to maintain hemoglobin >8/8.5 to reduce risk of MACE 09/15/2024: Stool for occult blood negative Patient had EGD on 09/17/2024 findings include: ? Esophagitis ? Diffuse mild inflammation characterized by erythema in the gastric antrum Plan: ? Clear liquid diet ? GoLytely bowel prep ? For colonoscopy once cleared as per GI recommendations ? GI, Dr. Collier consulted and is closely following the case. Appreciate recommendations. 5. ICD in situ due to risk of sudden cardiac 6. Coronary artery disease s/p 3 stents 7. History of atrial flutter 8. Hyperlipidemia Patient had 2 stents coronary stents last year and 1 recent stent July 2024. Patient on dual antiplatelet therapy with aspirin and Plavix. [id number]: 5 points; 7.2% stroke risk per year. Plan: ?Continue home medication ASA 81 Mg p.o. daily ? Continue home medication amiodarone 200 Mg p.o. twice daily - Continue home medication atorvastatin 40 mg po HS ? Hold Plavix for now until after colonoscopy. Not to exceed greater than 4 days without Plavix due to risk of stent thrombosis as per cardiology recommendations 9. [id number] diabetes type 2 [6] Patient's home medication Jardiance 12.5 Mg Plan: ? Sliding scale insulin to cover for any glucose spikes 10. Essential hypertension On admission patient's BP 128/71. Currently BP 121/76 Patient's home medication hydralazine 25 Mg p.o. twice daily Plan: ? Antihypertensives on hold for now to give blood pressure room for dialysis 11. DVT ruled out Patient has bilateral lower extremity swelling most likely secondary to fluid overload and inadequate dialysis as well as CHF exacerbation. However his left calf appears larger than his right on exam. Patient had bilateral lower extremity venous Doppler completed on 09/16/2024 findings include: All visualized deep veins exhibit compressibility. Negative for deep vein thrombosis 12. Asymptomatic bradycardia technical sales consultant called to informed of episode of bradycardia with rates in the 20s and brief episode of nonsustained V. tach. Stat EKG was ordered which showed electronically paced rhythm, rate 60 with incomplete RBBB in V2. Increased QTc [address] elevation or depression Plan: ? Continue to monitor telemetry Health maintenance: Disposition: Dialysis as per Nephrology. For colonoscopy once clear. Diet: cardiac and renal Lines: pIVs GI Prophylaxis:Pantoprazole Thrombo Prophylaxis: SCDs Code status: FULL CODE Plan of care discussed with Attending Dr. Godinez and PGY2 Dr. Tanmay Yousif MD PGY 1
[2024-09-19] MEDS: FUROSEMIDE INJ 10 MG/ML VIAL 2 ML 20 MG IVP (09:38)
[2024-09-19] MEDS: PANTOPRAZOLE INJ 40 MG VIAL IVP (09:38)
[2024-09-19] MEDS: PRAMIPEXOLE 0.25 MG TABLET 0.5 MG PO ×2 (09:39→20:58)
[2024-09-19] MEDS: ASPIRIN EC 81 MG TABEC PO (09:39)
[2024-09-19] MEDS: AMIODARONE HCL 200 MG TABLET PO ×2 (09:39→20:59)
[2024-09-19] MEDS: VIT B12/Vit C/FA (Nephrovite) TABLET 1 TAB PO (09:40)
--- NOTE | 2024-09-19 10:59 | PD.NEPHPROG ---
Documentation for date of: 09/19/24 Subjective Subjective Interval history: Interval history: The patient is a 74-year old male with a previous medical history of end-stage renal disease on hemodialysis on Thursday and Thursday, CAD status post multiple stent placement, last PCI with stent placement 08/09/24, s/p pacemaker placement, CHF, type 2 diabetes, A-fib, who came to the ED with weakness, shortness of breath and increased leg edema. Patient reports he is supposed to receive home oxygen, and does not use it yet. He came to the ED a few days ago, was sent from the dialysis center due to low hemoglobin level, was supposed to receive blood transfusion, but left before receiving it. He was sent by his PCP again to receive blood transfusion. Last dialysis session was on Thursday this week. ED course: Blood pressure 128/71, saturating well on 2 L of nasal cannula, afebrile. Labs showed hemoglobin 7.5, sodium 139, potassium 4.4, BUN 62, creatinine 4.4, EGFR 16, glucose 228, AST 49, ALT 57. Troponin I was +0.135 on 09/13/2024, downtrending to 0.079 on 09/15/2024, BNP 2630. Chest x-ray 09/13/2024 showed mild CHF and significant bilateral pneumonia. EKG showed atrial and ventricular pacing. Patient started on home clopidogrel and aspirin. Boat Ride Operator Dr. Azevedo was consulted due to fluid overload and anemia caused by ESRD. Due to fluid overload patient underwent emergent dialysis with goal to remove 3 L of fluid and transfuse 1 unit of blood. 09/16/24: Patient was seen and examined by the bedside. No acute overnight events. Patient reports feeling better. Patient had a hemodialysis session yesterday and received 1 unit of pRBC. Labs showed Hgb 8.4, Hct 26.1, Na 137, K 4.4, BUN 45, Cr 3.8, eGFR 16. GI was consulted today, pending recommendations. 09/17/2024: Patient seen, receiving dialysis complains of generalized body pain, patient is fluid overloaded, plan to remove about 4 L worth of fluid today along with transfusion of PRBC. Labs today show hemoglobin 8.5, hematocrit 26.8. Patient undergoing GI workup for suspected GI bleed. Scheduled for EGD today. 09/18/24: Patient was seen and examined by the bedside. No acute overnight events. Patient is feeling well, reports feeling less weak. Labs showed hemoglobin 9.3, hematocrit 28%, sodium 136, potassium 4.3, BUN 32, creatinine 3.3, EGFR 19. Denies nausea vomiting, bloody stools. EGD did not reveal signs of bleeding, patient continues to drink GoLytely, pending colonoscopy. Patient will stay 1 more day to receive dialysis due to holiday schedule. 09/19/2024 patient currently seen on dialysis. He is feeling short of breath. Patient apparently drank 2 gallons of GoLytely and still not clean. He will be getting another GoLytely today. Pending colonoscopy. Currently ultrafiltration 3 L in progress. Review of Systems Review of Systems Narrative Review of Systems: General: Denies weight loss, fever and chills. HEENT: Denies changes in vision and hearing. Resp: Reports SOB, denies cough and wheezing. CVS: Denies palpitations and CP. GI: Denies abdominal pain, nausea, vomiting and diarrhea. : Denies dysuria and urinary frequency. MSK: Denies myalgia and joint pain. Denies rash and pruritus. Neuro: Denies headache and syncope. Psych: Denies recent changes in mood. Denies anxiety and depression. Exam Vital Signs Temp Pulse Resp BP Pulse Ox O2 Del Method O2 Flow Rate 36.9 C 60 18 140/75 H 100 Nasal Cannula 2 09/19/24 07:49 09/19/24 09:39 09/19/24 07:50 09/19/24 09:39 09/19/24 07:50 09/19/24 07:49 09/19/24 07:50 Narrative Exam Physical Exam General: Awake and in no acute distress. On dialysis decreased hearing. HEENT: Normocephalic, atraumatic, mucous membranes moist. Heart: Regular rate and rhythm, no murmurs. Lungs: ++ crackles. Abdomen: Soft, nondistended, nontender, positive bowel sounds. ?No guarding or rebound tenderness. Neurologic: Alert and oriented x3, no gross neurological deficit, and patient able to move all 4 extremities. Extremities: 2+ bilateral leg edema. Skin: No rash or ecchymoses. Objective Labs 09/19/24 05:12 09/19/24 05:12 Labs: Laboratory Results - last 24 hr 12/23/24 05:12 WBC 5.3 RBC 2.75 L Hgb 9.0 L Hct 27.3 L MCV 99 MCH 32.7 MCHC 33.0 RDW Std Deviation 62.9 H Plt Count 203 Neut % (Auto) 60 Lymph % (Auto) 21 Stanton % (Auto) 11 Eos % (Auto) 7 Baso % (Auto) 2 Neut # (Auto) 3.2 Lymph # (Auto) 1.1 Stanton # (Auto) 0.6 Eos # (Auto) 0.4 Baso # (Auto) 0.1 Immature Gran # (Auto) 0.01 H Absolute Nucleated RBC 0.00 Immature Gran % 0 Nucleated RBC % 0 Sodium 141 Potassium 4.0 Chloride 100 Carbon Dioxide 27.1 Anion Gap 14 BUN 32 H Creatinine 3.7 H Estim Creat Clear Calc 21.6 L eGFR 17 L BUN/Creatinine Ratio 9 L Glucose 89 Calculated Osmolality 287 Calcium 9.4 Corrected Calcium 9.6 Phosphorus 3.9 Magnesium 2.3 Total Bilirubin 0.5 AST 27 ALT 28 Alkaline Phosphatase 87 Total Protein 6.3 Albumin 3.7 Globulin 2.6 Albumin/Globulin Ratio 1.4 Assessment & Plan Additional Assessment & Plan Additional Plan: The patient is a 74-year old male with a previous medical history of end-stage renal disease on hemodialysis on Thursday and Thursday, CAD status post multiple stent placement, last PCI with stent placement 08/09/24, s/p pacemaker placement, CHF, type 2 diabetes, A-fib, who came to the ED with weakness, shortness of breath and increased leg edema. Boat Ride Operator Dr. Azevedo was consulted due to fluid overload and anemia caused by ESRD. Due to fluid overload patient underwent emergent dialysis with goal to remove 3 L of fluid and transfuse 1 unit of pRBC. #ESRD on HD () #Chronic severe anemia #Acute hypoxic respiratory failure, resolved Most likely due to fluid overload. Patient denies eating salty food and was inquiring about how to count fluid intake. Patient was explained that he needs to restrict fluid and he was also suggested to do dialysis 3 times per week. Plan: -Patient currently seen on dialysis. Tolerating dialysis without any problems. Hemodialysis for 3 hours, 2K, ultrafiltration 3.5 L, Epogen 6000, no heparin ordered. Plan of care discussed with the dialysis nurse. Please see dialysis flowsheet for further details. Next dialysis scheduled for tomorrow due to fluid overload from GoLytely. - strict I's and O's - renal diet - monitor CBC, transfuse if Hgb <7 - dialysis as scheduled 3 times a week. -Undergoing GI workup #CAD s/p stent, pacemaker placement #CHF #A-fib #T2DM - management per primary team Pending colonoscopy possibly tomorrow. Quality - progress note Quality Measures Quality Measures: VTE prophylaxis Reason for Continued Stay Reason for Continued Stay: further monitoring
--- NOTE | 2024-09-19 11:02 | ESDS_ITS ---
<Statement entered by Yeimy Connell MD - 09/19/24 20:49> I discussed with and supervised my co-resident involved in the care of this patient. I agree with the assessment and plan as documented above. Yeimy Connell,PGY-3 Disclaimer: Despite multiple revisions, due to the dictation software being used, the document below may not be free of grammatical errors including phonetic/typographic errors. However, this does not deter from our commitment to providing health care in the patient's best interest in mind. Planned Discharge Date 09/19/24 DS: Providers Provider Date of admission: 09/15/24 11:51 Primary care physician: Glynn Mckenzie MD Admitting Provider: Niecy Pérez DO Attending Provider on Admission: Niecy Pérez DO Consults: 09/15/24 11:56 Consult to Nephrology Routine Comment: Consulting Provider: Rizwan Azevedo 09/15/24 13:53 Consult to Cardiology Routine Comment: Consulting Provider: Cassie Morgan 09/15/24 16:29 [facility] Referral - Transportation Routine Comment: Positive screening for transportation needs. 09/16/24 08:13 Consult to Gastroenterology Routine Comment: Chronic anemia for Investigation Consulting Provider: Aniya Collier Attending Provider on DC: Sandro Godinez DO Discharging Provider: Adrien Yousif MD DS: Diagnosis Problem List Completed Was Problem List Reviewed/Reconciled?: Yes Hospital Course Hospital Course Hospital course: Giancarlo Martino is a 74 year old male with past medical history of CAD with multiple stents, ESRD(on dialysis Thursday and Thursday since 2022), HFrEF [35-40%], NIDDM type II [6], atrial flutter, and ICD placement. Presented today with a chief complaint of SOB. Patient will be admitted for anasarca requiring hemodialysis. For patient's anasarca, nephrology recommended to increase his dialysis schedule 2-3 times a week. His new schedule is Thursday//Thursday. For his acute decompensated chronic systolic congestive heart failure exacerbation [35-40%]. Patient still produces some urine so he was diuresed with Lasix 20 Mg IV daily. With regards to his chronic normocytic anemia, patient was transfused 1 unit PRBC after which his hemoglobin improved to 8.4. Cardiology recommended to maintain his hemoglobin >8 to reduce risk of MACE. He had an EGD done which showed esophagitis and diffuse mild inflammation characterized by erythema in the gastric antrum. He also had colonoscopy done on 09/19/2024 findings include: mild diverticulosis of sigmoid and descending colon. No signs of diverticular bleed All patient's labs are now returning to baseline. Patient is now clinically stable and fit for discharge to home. Discharge diagnoses: 1. Anasarca secondary to inadequate fluid removal from hemodialysis?resolving 2. End-stage renal disease on hemodialysis via right radial AV fistula [Thursday//Saturdays] 3. Acute decompensated chronic systolic congestive heart failure with reduced ejection fraction [35-40%]?resolving 4. Chronic normocytic anemia 5. ICU in situ 6. Coronary artery disease s/p 3 stents 7. History of atrial flutter 8. Hyperlipidemia 9. Ttw-[id number] diabetes mellitus type 2 [6] 10. Essential hypertension 11. DVT ruled out 12. Asymptomatic bradycardia Discharge plan: ? Your new dialysis days are Thursday//Thursday. ? Continue taking the rest of your home medication as before. ? You will have to restrict your daily liquid intake to 1.5 Litres / 50 ounces per day. This includes water, teas, coffees and soups. ? You will have to follow a low salt diet for the rest of your life. This means no Vietnamese food or fast food. ? You will have to take your weight daily. If your weight increases by more than 5-10 pounds in 1-2 days, take an extra water pill that day. ? You will have to measure your blood pressure daily. If the top number is less than 100, do not take your blood pressure medications that day. ? Keep a log of your blood pressures to take to your primary doctor and natural gas trader. ? Please follow-up with your primary doctor within 1 week of discharge ? Please follow-up with your natural gas trader and silhouette artist within 1-2 weeks of discharge. ? If you experience any new, worsening or persistent symptoms either call your primary doctor, or dial 911 or present to the emergency department. We are grateful to be able to participate in Mr. Martino's care. We wish him the best. Plan of care discussed with Attending Dr. Godinez and PGY3 Dr. Becki Yousif MD PGY 1 Time Spent with Patient Time attestation: Total time spent providing and/or coordinating discharge services: Time spent: Greater than 30 minutes (38) Exam Vital Signs Temp Pulse Resp BP Pulse Ox O2 Del Method O2 Flow Rate 98.4 F 60 18 140/75 H 100 Nasal Cannula 2 09/19/24 07:49 09/19/24 09:39 09/19/24 07:50 09/19/24 09:39 09/19/24 07:50 09/19/24 07:49 09/19/24 07:50 Narrative Exam Constitutional Alert, oriented x 3 and comfortable. Elderly male on O2 via NC HEENT Vision grossly intact. Patent nares. Trachea midline Respiratory Chest normal on inspection and clear auscultation bilaterally Cardiovascular S1 and S2 audible, RRR. No murmurs carotid bruit. No gross JVD. Abdominal Soft and non tender to palpation in all quadrants. BS + Genitourinary. No bladder tenderness, no flank pain. Normal to palpation . Scrotal edema resolved Musculoskeletal Extremities tone within normal limits. 2+ pitting lower extremity edema up to knees bilaterally?improving Neurological CN II - XII grossly intact. Extremity motor and sensation grossly intact. Skin Warm, dry and intact. No apparent lesions. Psychiatric Patient has good affect, is cooperative Discharge Plan Plan Patient Disposition: HOME (Self Care) Disposition Comment: Hospitalist to admit silhouette artist to consult Patient condition on transfer: Stable Care Plan Goals: ? Your new dialysis days are Thursday//Thursday. ? Continue taking the rest of your home medication as before. ? You will have to restrict your daily liquid intake to 1.5 Litres / 50 ounces per day. This includes water, teas, coffees and soups. ? You will have to follow a low salt diet for the rest of your life. This means no Vietnamese food or fast food. ? You will have to take your weight daily. If your weight increases by more than 5-10 pounds in 1-2 days, take an extra water pill that day. ? You will have to measure your blood pressure daily. If the top number is less than 100, do not take your blood pressure medications that day. ? Keep a log of your blood pressures to take to your primary doctor and natural gas trader. ? Please follow-up with your primary doctor within 1 week of discharge ? Please follow-up with your natural gas trader and silhouette artist within 1-2 weeks of discharge. ? If you experience any new, worsening or persistent symptoms either call your primary doctor, or dial 911 or present to the emergency department. Prescriptions/Referrals Prescriptions/Med Rec: Continued Homa-Franci 0.8 mg tablet 1 tab PO QDAY amiodarone 200 mg tablet 200 mg PO BID hydrocodone-acetaminophen 10-325 mg tablet 10 - 325 tab PO Q6H PRN (Reason: Pain) nitroglycerin 0.3 mg tablet, sublingual 0.3 mg buccal Q5MIN MDD 3 pills within 15 minutes. PRN (Reason: chest pain) Qty: 15 0RF Rx Instructions: Place under tongue when chest pain starts. Can repeat dose in 5 minutes if pain does not improve with max total of 3 pills within 15 minutes. Do not mix with erectile dysfunction medicines. May cause low blood pressure and headaches. pramipexole 0.5 mg Tablet 0.5 mg PO BID albuterol sulfate 90 mcg/actuation Hfa Aerosol Inhaler 2 puff INHALATION QID PRN (Reason: sob) lactulose 10 gram/15 mL Solution 10 g PO QDAY atorvastatin 40 mg Tablet 40 mg PO QPM clopidogrel 75 mg Tablet 75 mg PO QDAY furosemide 20 mg Tablet 20 mg PO QDAY aspirin 81 mg Capsule 81 mg PO QDAY melatonin 10 mg Capsule 10 mg PO HS PRN (Reason: Insomnia) doxazosin 1 mg Tablet 2 mg PO QDAY metoprolol succinate 50 mg tablet extended release 24 hr 50 mg PO QDAY Qty: 30 0RF Changed hydralazine 50 mg Tablet 25 mg PO BID Qty: 30 0RF Discontinued furosemide 20 mg tablet 20 mg PO 1XD Patient Comments: TAKE 1 TABLET BY MOUTH EVERY DAY Jardiance 10 mg Tablet 25 mg PO QDAY amiodarone 200 mg Tablet 200 mg PO 2XD Homa-Franci 0.8 mg Tablet 1 tab PO QDAY Jardiance 10 mg Tablet 10 mg PO QDAY atorvastatin 40 mg Tablet 40 mg PO QPM clopidogrel [Plavix] 75 mg Tablet 75 mg PO QDAY Referrals: Glynn Mckenzie MD [Primary Care Provider] - Patient/Caregiver Discharge Instructions Education Materials: Colonoscopy Print Language: Citizen Of [place] Stand Alone Forms: Annabella Award Info., Patient Portal Info Letter Discharge Order Discharge Orders: Discharge (Routine); Ordered 09/19/24 Ordered By: Adrien Yousif Quality Discharge Quality Measures VTE prophylaxis
--- NOTE | 2024-09-19 12:12 | PC.NURSE ---
Pt has 2 hrs left on dialysis. Pt c/o feeling weak saying he didn't eat anything for 2 days now. UF goal decreased to 2 L as tolerated, UFR at 680ml/hr. Will monitor.
[2024-09-19] MEDS: EPOETIN ALFA-EPBX INJ 10,000 UNIT/ML VIAL (ESRD) 10000 UNIT SC (12:15)
--- NOTE | 2024-09-19 13:01 | PC.NURSE ---
MD MAZARIEGOS AT BEDSIDE W/ ORDER FOR UF GOAL AT 3L AND UF TIME INCREASED BY 30MIN, ORDERS CARRIED OUT WILL CONT. TO MONITOR
--- NOTE | 2024-09-19 20:15 | ESPR_ITS ---
<Statement entered by Cassie Morgan MD - 09/21/24 19:15> The patient is doing better personally evaluated by me appears to be have no chest pain shortness of breath cardiac mckeon stable patient can be discharged home I will see him for follow-up as an outpatient I evaluated the patient with resident physician agree with the treatment plan recommendations. Documentation for date of: 09/19/24 Subjective Subjective Interval history: 74 years old male patient with significant medical history for HFrEF ejection fraction 35%, s/p ICD pacemaker, CAD s/p multivessel stents, Afib, DM2, ESRD (on HD , occupational health rn Dr. Azevedo), BPH and normocytic anemia presented to the ED with complaint of shortness of breath, lower extremity edema and weakness for the last week. Patient was recently sent to ED from dialysis center when his HgB was found to be low at 7.3. At that time he was also found to have pneumonia. Patient denies cough, chest pain/pressure, fever, chills, NVD or other associated symptoms. Today's labs were significant for HgB 7.5, MCV 106, Hct 23.9, BUN 62, Jewelry Coater 4.4, eGFR 14, Trop 0.79, BNP 2630. Chest x-ray (from 09/13/24) mild heart failure and significant b/l pneumonia. EKG showed atrial and ventricular pacemaker with rate in the 60s. Patient admitted for AHRF secondary to fluid overload, due to ESRD and CHF. 09/15/24: Patient seen and examined during dialysis. Patient denies having cough but has been endorsing weakness and shortness of breath on exertion last few days. Patient states that he is doing better right now. Would recommend continuing amiodarone for A-fib flutter, continue aspirin and Plavix and transfuse PRBC to keep hemoglobin at 8. 09/16/24: Patient had dialysis completed yesterday with 4 L of fluid out. Today he states that he is feeling better, his lower extremity edema has improved, his right leg is more swelled compared to his left, primary team completed Doppler ultrasound of lower extremities. Patient states after having a fall a while back he has noticed his right leg being more swelled compared to his left. His hemoglobin has been stable at 8.5 after receiving 1 unit of PRBC yesterday. Patient breathing comfortably on room air during examination, he was supposed to undergo EGD today but due to patient having oral intake, procedure was delayed until tomorrow morning. Continue current medical management regimen with amiodarone, diuresis and DAPT. 09/19/24: Patient underwent dialysis this afternoon with 3.4L of fluid taken out. Nephrology increased HD sessions to x3/week. Colonoscopy showed non- bleeding diverticulosis and hemorrhoids. Hemoglobin has been stable. From cardiology point, if no signs of active bleeding, plavix should be restarted. Continue metoprolol xl, asa, plavix and amiodarone. Exam Vital Signs Temp Pulse Resp BP Pulse Ox O2 Del Method O2 Flow Rate 97.8 F 60 12 160/77 H 94 L Nasal Cannula 5 09/19/24 18:50 09/19/24 19:20 09/19/24 19:20 09/19/24 19:20 09/19/24 19:20 09/19/24 07:49 09/19/24 18:50 Narrative Exam Constitutional: well-developed, well-nourished, in no acute distress, lying in bed HEENT: NCAT, EOMI, reactive round pupils b/l, patent nares b/l, moist mucous membranes Lung: CTAB, no wheezing, no rhonchi Heart: Regular S1S2, no murmurs, gallops, or rubs Abdomen: Soft, non-distended, non-tender, bowel sounds present throughout Extremities: No cyanosis, clubbing, +1 edema of legs, LE pulses present b/l Neurologic: No focal sensory or motor deficits noted, AOx3, appropriate affect Skin: Warm, dry, no lesions or rashes noted Objective Labs 09/19/24 05:12 09/19/24 05:12 Labs: Laboratory Results - last 24 hr 09/19/24 05:12 WBC 5.3 RBC 2.75 L Hgb 9.0 L Hct 27.3 L MCV 99 MCH 32.7 MCHC 33.0 RDW Std Deviation 62.9 H Plt Count 203 Neut % (Auto) 60 Lymph % (Auto) 21 [place]shaw % (Auto) 11 Eos % (Auto) 7 Baso % (Auto) 2 Neut # (Auto) 3.2 Lymph # (Auto) 1.1 [place]shaw # (Auto) 0.6 Eos # (Auto) 0.4 Baso # (Auto) 0.1 Immature Gran # (Auto) 0.01 H Absolute Nucleated RBC 0.00 Immature Gran % 0 Nucleated RBC % 0 Sodium 141 Potassium 4.0 Chloride 100 Carbon Dioxide 27.1 Anion Gap 14 BUN 32 H Creatinine 3.7 H Estim Creat Clear Calc 21.6 L eGFR 17 L BUN/Creatinine Ratio 9 L Glucose 89 Calculated Osmolality 287 Calcium 9.4 Corrected Calcium 9.6 Phosphorus 3.9 Magnesium 2.3 Total Bilirubin 0.5 AST 27 ALT 28 Alkaline Phosphatase 87 Total Protein 6.3 Albumin 3.7 Globulin 2.6 Albumin/Globulin Ratio 1.4 Quality Measures Quality Measures VTE prophylaxis Advance care planning discussed with:: other Assessment & Plan Assessment Current Active Medications: Generic Name Dose Route Start Last Admin Trade Name Freq PRN Reason Stop Dose Admin Acetaminophen 650 mg 09/15/24 11:51 Acetaminophen 325 Mg Tablet PO 10/15/24 11:50 Q6H PRN Fever >100.4 or pain Protocol Hydrocodone Bitart/Acetaminophen 1 tab 09/15/24 11:51 09/19/24 13:07 Hydrocodone/Apap 5/325 Tablet PO 09/20/24 11:50 1 tab Q4HR PRN Administration PAIN SCALE 4-6 (Moderate Amiodarone HCl 200 mg 09/15/24 14:00 09/19/24 09:39 Amiodarone Hcl 200 Mg Tablet PO 10/15/24 13:59 200 mg BID VIKRAM Administration Aspirin 81 mg 09/15/24 12:00 09/19/24 09:39 Aspirin Ec 81 Mg Tabec PO 10/15/24 11:59 81 mg QDAY VIKRAM Administration Atorvastatin Calcium 40 mg 09/15/24 21:00 09/18/24 21:01 Atorvastatin Calcium 20 Mg Tablet PO 10/15/24 20:59 40 mg HS VIKRAM Administration Dextrose 25 ml 09/15/24 11:51 Dextrose 50%-Water Inj 50 Ml Syringe IV 10/15/24 11:50 Q15MIN PRN BG 50-70 responsive npo pt Dextrose 50 ml 09/15/24 11:51 Dextrose 50%-Water Inj 50 Ml Syringe IV 10/15/24 11:50 Q15MIN PRN BG <50 OR BG <70 & pt unresponsive Furosemide 20 mg 09/17/24 09:00 09/19/24 09:38 Furosemide Inj 10 Mg/Ml Vial 2 Ml IVP 10/17/24 08:59 20 mg DAILY VIKRAM Administration Glucagon 1 mg 09/15/24 11:51 Glucagon Inj 1 Mg Vial IM Q15MIN PRN BG <70, and no IV access Albumin Human 25 gm in 100 mls @ 100 mls/min 09/15/24 09:15 Albuminar-25 Ivpb IV PRN PRN DIALYSIS Insulin Human Lispro 0 unit 09/15/24 17:00 09/19/24 17:43 Insulin Lispro (Admelog) 1 Unit/0.01 Ml Unit SC 10/15/24 16:59 Not Given ACHS VIKRAM Protocol Melatonin 9 mg 09/15/24 20:41 09/17/24 20:41 Melatonin 3 Mg Tablet PO 9 mg HS PRN Administration Insomnia Pantoprazole Sodium 40 mg 09/16/24 09:00 09/19/24 09:38 Pantoprazole Inj 40 Mg Vial IVP 10/16/24 08:59 40 mg QDAY VIKRAM Administration Pramipexole Dihydrochloride 0.5 mg 09/15/24 21:00 09/19/24 09:39 Pramipexole 0.25 Mg Tablet PO 10/15/24 20:59 0.5 mg BID VIKRAM Administration Sennosides 2 tab 09/15/24 11:51 Senna Tablet PO 10/15/24 11:50 BID PRN CONSTIPATION Protocol Vitamin B Complex/Vit C/Folic Acid 1 tab 09/16/24 09:00 09/19/24 09:40 Vit B12/Vit C/Fa (Nephrovite) Tablet PO 10/16/24 08:59 1 tab QDAY VIKRAM Administration Plan 74 years old male patient with significant medical history for HFrEF ejection fraction 35%, s/p ICD pacemaker, CAD s/p multivessel stents, Afib, DM2, ESRD (on HD , occupational health rn Dr. Azevedo), BPH and normocytic anemia presented to the ED with complaint of shortness of breath, lower extremity edema and weakness for the last week. Patient admitted for AHRF secondary to fluid overload, due to ESRD and CHF. #HFrEF (LVEF 35-40% June 2024) #S/p ICD pacemaker #Ischemic cardiomyopathy #CAD s/p multi-vessel stent Latest echocardiogram indicative of: mild MAC, mild MR, moderate aortic sclerosis without stenosis, mild IVC dilation, estimated EF 35-40% Patient does not have signs of heart failure exacerbation Plan: - Continue Metoprolol XL - Continue aspirin - Continue Plavix - Continue Atorvastatin - Low salt/cardiac diet - Strict intake and output - Fluid restriction and daily weight #Atrial fibrillation #s/p ICD EKG showed atrial and ventricular pacemaker with rate in the 60s. Plan: - Continue Amiodarone # ESRD on hemodialysis [Tuesdays/] # Chronic back pain # Restless leg syndrome # BPH # Chronic normocytic anemia -Management per primary team This patient care was discussed with my attending Dr. Eddie Martinez MD PGY-2 Disclaimer: Minor errors in city bus driver may be present since this note was dictated by speech recognition software.
[2024-09-19] MEDS: ATORVASTATIN CALCIUM 20 MG TABLET 40 MG PO (20:58)
== END 2024-09-19 21:25 | disposition home or self-care (01) | DRG 291 ==
LOC: SERX 09:05 → SERHOLD 12:09 → S3NX 16:00
PROVIDERS: Emergency Medicine; Physician Assistant; Specialist; Student in an Organized Health Care Education/Training Program; Admitting Provider Internal Medicine; Emergency Provider Emergency Medicine; PCP Internal Medicine; Visit Provider Internal Medicine
PROC: 0DJ08ZZ Inspection of Upper Intestinal Tract, Via Natural or Artificial Opening Endoscopic (ICD-10-PCS; CPT 43239; principal; 2024-09-17 11:30)
PROC: 0DJD8ZZ Inspection of Lower Intestinal Tract, Via Natural or Artificial Opening Endoscopic (ICD-10-PCS; CPT 45378; principal; 2024-09-19 18:00)
DX: I13.2 Hypertensive heart and chronic kidney disease with heart failure and with stage 5 chronic kidney disease, or end stage renal disease (principal); I50.23 Acute on chronic systolic (congestive) heart failure; J96.01 Acute respiratory failure with hypoxia; N18.6 End stage renal disease; J18.9 Pneumonia, unspecified organism; I47.20 Ventricular tachycardia, unspecified; I25.10 Atherosclerotic heart disease of native coronary artery without angina pectoris; I48.91 Unspecified atrial fibrillation; E11.22 Type 2 diabetes mellitus with diabetic chronic kidney disease; K64.9 Unspecified hemorrhoids; E78.5 Hyperlipidemia, unspecified; G25.81 Restless legs syndrome; M54.9 Dorsalgia, unspecified; K29.60 Other gastritis without bleeding; K20.90 Esophagitis, unspecified without bleeding; K57.30 Diverticulosis of large intestine without perforation or abscess without bleeding; I25.2 Old myocardial infarction; I25.5 Ischemic cardiomyopathy; D63.1 Anemia in chronic kidney disease; I45.10 Unspecified right bundle-branch block; R00.1 Bradycardia, unspecified; G89.29 Other chronic pain; Z99.2 Dependence on renal dialysis; Z95.5 Presence of coronary angioplasty implant and graft; Z96.653 Presence of artificial knee joint, bilateral; Z95.810 Presence of automatic (implantable) cardiac defibrillator; Z98.1 Arthrodesis status; Z79.82 Long term (current) use of aspirin; Z79.899 Other long term (current) drug therapy; Z79.02 Long term (current) use of antithrombotics/antiplatelets; Z87.891 Personal history of nicotine dependence
CPT/HCPCS: 36415; 36430; 71045; 80053; 82607; 82728; 82746; 83540; 83550; 83735; 83880; 84100; 84484; 85014; 85018; 85025; 85610; 85730; 86850; 86900; 86901; 86923; 87081; 93005; 93225; 93970; 94640; 99285; A4217; A9270; J1200; J1815; J1940; J2250; J2470; J3010; P9016; Q5105

== ENCOUNTER 2024-10-04 06:47 | Inpatient (IN) | payer OTHER, MEDICARE, SELFPAY ==
[2024-10-04] VITALS (23 sets, daily range): BP systolic 83–224; BP diastolic 26–84; PULSE 59–87; RESP 16–20; TEMP 36.4–38.6; O2SAT 92–97; BMI 27.1
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
--- NOTE | 2024-10-04 07:09 | XR_ITS ---
Examination: AP chest single view Technique one AP portable sitting chest single view Exam date and time: October 04, 2024 0725 hours Comparison September 15, 2024 INDICATIONS: Onset SOB today. FINDINGS: Mild CHF Mild to moderate enlargement left ventricle Prominent vascular congestion with perihilar edema Pneumonia in the right lower lobe and left upper lobe Transvenous dual-chamber bipolar cardiac leads satisfactory position No pneumothoraces Significant osteopenia IMPRESSION: Mild CHF Pneumonia right base and left upper lobe
--- NOTE | 2024-10-04 07:09 | EKG_ITS ---
[facility] Test Date: 2024-10-04 Pat Name: ANGELICA LAU Department: Room: - Gender: Male Photography Assistant: : 1950 Requested By: Orion Hunt Order Number: [id number] Reading MD: Orion Hunt Measurements Intervals [place] Rate: 60 P: 193 SD: 287 QRS: 28 QRSD: 105 T: -32 QT: 358 QTc: 358 Interpretive Statements ELECTRONIC ATRIAL PACEMAKER ST DEVIATION AND MODERATE T-WAVE ABNORMALITY, CONSIDER ANTEROLATERAL ISCHEMIA [-0.1+ mV T WAVE IN V3-V6] Compared to ECG 09/18/2024 11:33:13 T-wave abnormality now present Possible ischemia now present Ventricular-paced complex(es) or rhythm no longer present /store/S0/[id number]/ecg/[id number].pdf
--- NOTE | 2024-10-04 07:10 | XR_ITS ---
Examination: Tibia-Fibula, left , 2 views Technique: Tibia-fibula AP lateral 2 views Date and time of exam: October 04, 2024 0730 hours INDICATIONS: Patient fell today with injury to the lower leg, lower leg pain. FINDINGS: No fracture or dislocation Partial visualization left knee arthroplasty IMPRESSION: No fracture or dislocation
--- NOTE | 2024-10-04 07:10 | XR_ITS ---
Examination: Foot, left, 3 views Technique: AP, oblique, lateral views foot, 3 views Date and time of exam: October 04, 2024 0733 hours INDICATIONS: Patient fell today with injury to the foot, foot pain FINDINGS: Significant osteopenia Significant osteoarthritis first metatarsophalangeal joint 6 mm plantar bony calcaneal spur No cortical bone destruction No acute fracture IMPRESSION: No acute fracture
--- NOTE | 2024-10-04 07:11 | XR_ITS ---
Examination: Knee, right , 3 views Technique: Knee AP, lateral, oblique 3 views Date and time of exam: October 04, 2024 0726 hours INDICATIONS: Patient fell today with injury to the knee, knee pain. FINDINGS: Severe osteopenia Medial joint hemiarthroplasty with satisfactory alignment Small knee effusion No acute fracture IMPRESSION: No acute fracture
[2024-10-04 08:01] LABS: Basophils # (Auto) 0.1 Thou/mm3 (0.0-0.2); Basophils % (Auto) 1 % (0-2.5); Eosinophils % (Auto) 0 % (0-10); Hematocrit 26.4 % (41.0-53.0); Hemoglobin 8.8 g/dL (13.5-16.0); Immature Granulocytes % (Auto) 0 % (0-0); Immature Granulocytes Auto 0.02 Thou/mm3 (0.00-0.00); Lymphocytes # (Auto) 0.5 Thou/mm3 (1.0-4.8); Lymphocytes % (Auto) 5 % (10-50); Mean Corpuscular HGB Conc 33.3 g/dl (31.0-37.0); Mean Corpuscular Hemoglobin 32.8 pg (25.0-35.0); Mean Corpuscular Volume 99 fL (80-100); Monocytes # (Auto) 0.6 Thou/mm3 (0.0-0.8); Monocytes % (Auto) 7 % (0-12); Neutrophils # (Auto) 8.3 Thou/mm3 (1.8-7.7); Neutrophils % (Auto) 87 % (37-80); Nucleated Red Blood Cell % 0 /100 WBC (0); Platelet Count 200 Thou/mm3 (140-440); RDW Standard Deviation 57.6 fL (35.1-43.9); Red Blood Count 2.68 Miln/mm3 (4.50-5.90); White Blood Count 9.5 Thou/mm3 (3.8-10.6)
[2024-10-04 08:01] LABS: Base Excess 0 (-3-3); HCO3 24 mEq/L (20-26); Inspired O2, VO2 Liters 3 L/min; O2 Saturation 96 % (91-98); PCO2 34 mmHg (32.0-48.0); PO2 81 mmHg (83-108); pH, Arterial 7.45 (7.35-7.45)
[2024-10-04 08:03] LABS: Allen Test Performed/OK; Puncture Site Left Radial
[2024-10-04 08:08] LABS: Alanine Aminotransferase 38 U/L (10-49); Albumin, Serum 3.6 gm/dL (3.4-4.8); Albumin/Globulin Ratio 1.3 (1.2-2.2); Alkaline Phosphatase 134 U/L (46-116); Anion Gap 10 (7-16); Aspartate Amino Transferase 32 U/L (0-34); BUN/Creatinine Ratio 14 Ratio (12-20); Bilirubin,Total 0.5 mg/dL (0.3-1.2); Blood Urea Nitrogen 57 mg/dL (9-23); Calcium 8.5 mg/dL (8.3-10.6); Calcium (Corrected) 8.8 mg/dL (8.5-10.1); Carbon Dioxide 24.6 mMol/L (20.0-31.0); Chloride 104 mMol/L (98-107); Creatinine (Component) 4.2 mg/dL (0.6-1.3); Estimated Creatinine Clearance 17.4 mL/min (>60); Globulin 2.8 gm/dL (2.3-3.5); Glucose 181 mg/dL (74-106); Osmolality,Calculated 298 (275-295); Sodium 139 mMol/L (136-145); Total Protein 6.4 gm/dL (5.7-8.2); Troponin I 0.037 ng/mL (0.0-0.045); eGFR 14 See Note
[2024-10-04 08:09] LABS: B-Type Natriuretic Peptide > 3280 pg/mL (0-100)
[2024-10-04] MEDS: FUROSEMIDE INJ 10 MG/ML 4ML VIAL 80 MG IVP (08:19)
[2024-10-04] MEDS: NITROGLYCERIN OINT 2% 1 INCH PACKET TOP (08:22)
[2024-10-04] MEDS: MORPHINE SULF INJ 10 MG/ML VIAL 4 MG IVP (08:22)
[2024-10-04] MEDS: cefTRIAXone 1,000 MG in SODIUM CHLORIDE 0.9% (P) 50 ML 100 MG IV (09:34)
--- NOTE | 2024-10-04 10:00 | XR_ITS ---
Examination: CT right lower extremity with intravenous contrast, 2-D sagittal reconstructions. 2-D coronal reconstructions. 3-D reconstructions. Date and time of exam:October 04, 2023 1041 hours INDICATIONS: Patient fell this week with injury to the right knee redness swelling and pain today CTDI: vol (mGy):12.2 DLP: (mGycm):903 Technique: Multiple 1.25 mm axial sections of the right lower extremity with intravenous contrast, 60 cc Isovue-[id number] have been obtained. 2-D sagittal and coronal reconstructions have been obtained. 3-D reconstructions have been obtained. Low dose protocols were performed. One or more of the following dose reduction techniques were used; automated exposure control, adjustment of the mA and/or KV according to patient size, use of iterative reconstruction technique. Findings: Prominent osteopenia Cellulitis pattern with edema in the subcutaneous fatty tissue lateral to the right hip and lateral thigh, extending to the medial thigh and posterior thigh mid to distal femur level Soft tissue mass medial to the knee, AP dimension 6.5 cm medial lateral dimension 3.1 cm cephalad caudad dimension 5.7 cm most consistent with hematoma Small knee effusion No patellar dislocation Medial hemiarthroplasty No knee fracture IMPRESSION: Solid appearing mass medial to the distal femur and knee, 6.5 x 3.1 x 5.7 cm most consistent with hematoma
[2024-10-04] MEDS: AZITHROMYCIN INJ 500 MG in SODIUM CHLORIDE 0.9% 250 ML 250 ML 250 MG IV (10:28)
--- NOTE | 2024-10-04 10:45 | PC.NURSE ---
Patient to CT via gurney with Cody lim.
--- NOTE | 2024-10-04 11:18 | PC.NURSE ---
Dr Ely at bedside speaking with patient.
--- NOTE | 2024-10-04 12:48 | PC.CC ---
ASW attempted to meet with pt x2 at bedside to complete initial assessment. First attempt pt asleep, second attempt pt at dialysis. [id number] attempted to make contact with pts Tiffanie Martino [phone]. Reason for attempt is to complete initial assessment.
[2024-10-04] MEDS: HYDROcodone/APAP 5/325 TABLET 1 TAB PO ×2 (13:08→21:37)
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
[2024-10-04 14:44] LABS: Phosphorous 3.8 mg/dL (2.4-5.1)
--- NOTE | 2024-10-04 16:13 | PC.NURSE ---
REPORT GIVEN TO WILLIE BOWMAN, PATIENT WILL TRANSFER TO ROOM 378.
--- NOTE | 2024-10-04 16:18 | PC.NURSE ---
Tried for 15 minutes to get a BP. Finally moved to left lower leg and got a BP, for the next index of numbers.
--- NOTE | 2024-10-04 17:26 | PC.RT ---
PATIENT TAKEN UP TO MED SURG. NEEDS SPUTUM COLLECTION
[2024-10-04] MEDS: DOXYCYCLINE 100 MG TABLET PO (21:37)
[2024-10-04] MEDS: MIDODRINE 5 MG TABLET 10 MG PO (23:40)
[2024-10-05] VITALS (17 sets, daily range): BP systolic 83–112; BP diastolic 39–54; PULSE 60–64; RESP 10–19; TEMP 36.5–39.1; O2SAT 91–100
--- NOTE | 2024-10-05 00:02 | EVENTNT_ITS ---
Documentation for date of: 10/05/24 Event Note Event Note: Rapid Response Room: [facility] Time: 23:30 Reason for Call: Hypotension, BP was 92/39 Patient presentation: Patient laying in bed, sleepy but arousable. Denies any complaints, including pain, lightheadedness. Patient mentation at baseline per family member bedside. Events: Patient had dialysis earlier today and had 2.4L removed. Patient BPs seemed variable during dialysis but lowest recorded appeared to be 83/26. Otherwise had been maintaining pressures. Assessment: Hypotension secondary to fluid removal, will try midodrine x1 as patient with mild pulmonary crackles, if still hypotensive will give small bolus New orders: Midodrine 10 mg x1, renal panel ordered Patient was discussed with the attending, Dr. Gibson, and team residents, Adrien Yousif PGY-1 and Oniel Igelsias PGY-1. Graciela Mosquera, PGY-2 ADDENDUM 04:00: Patient spiked fever 102.3. He is on ceftriaxone and doxycycline for right leg cellulitis. Patient evaluated, right leg with 5x5 cm hematoma, no active drainage, minimal surrounding erythema but very tender to palpation, mild fluctuance. Patient already being seen by general surgery and ortho. Cultures are pending. Will escalate antibiotic to Zosyn, vancomycin, repeat blood cultures ordered for now.
--- NOTE | 2024-10-05 01:33 | EKG_ITS ---
[facility] Test Date: 2024-10-05 Pat Name: ANGELICA LAU Department: Room: S378A Gender: Male In School Suspension Aide: KAYKAY : 1950 Requested By: Oniel Iglesias Order Number: [id number] Reading MD: Oniel Iglesias Measurements Intervals [place] Rate: 60 P: 224 IN: 282 QRS: 58 QRSD: 112 T: 69 QT: 330 QTc: 330 Interpretive Statements ELECTRONIC ATRIAL PACEMAKER MODERATE INTRAVENTRICULAR CONDUCTION DELAY [110+ ms QRS DURATION] NONSPECIFIC ST & T-WAVE ABNORMALITY ABNORMAL RHYTHM ECG Compared to ECG 10/04/2024 07:52:23 Intraventricular conduction delay now present Possible ischemia no longer present T-wave abnormality still present /store/S0/[id number]
[2024-10-05 02:33] LABS: Albumin, Serum 3.2 gm/dL (3.4-4.8); Anion Gap 9 (7-16); BUN/Creatinine Ratio 12 Ratio (12-20); Blood Urea Nitrogen 44 mg/dL (9-23); Calcium 7.9 mg/dL (8.3-10.6); Calcium (Corrected) 8.5 mg/dL (8.5-10.1); Carbon Dioxide 27.6 mMol/L (20.0-31.0); Chloride 101 mMol/L (98-107); Creatinine (Component) 3.7 mg/dL (0.6-1.3); Estimated Creatinine Clearance 19.8 mL/min (>60); Glucose 139 mg/dL (74-106); Osmolality,Calculated 288 (275-295); Phosphorous 5.3 mg/dL (2.4-5.1); Potassium 3.2 mMol/L (3.4-5.1); Sodium 138 mMol/L (136-145); eGFR 17 See Note
[2024-10-05] MEDS: ACETAMINOPHEN 325 MG TABLET 650 MG PO (04:04)
[2024-10-05] MEDS: POTASSIUM CHLORIDE 20 mEq TABCR 40 MEQ PO (04:34)
[2024-10-05] MEDS: PIPER/TAZO INJ 3.375 GM in SODIUM CHLORIDE 0.9% (P) 50 ML IV (05:02)
[2024-10-05 05:09] LABS: Lactate (Lactic Acid) 0.8 mMol/L (0.4-2.0)
[2024-10-05 05:20] LABS: Basophils % (Auto) 0 % (0-2.5); Eosinophils % (Auto) 0 % (0-10); Hematocrit 25.8 % (41.0-53.0); Immature Granulocytes % (Auto) 1 % (0-0); Immature Granulocytes Auto 0.08 Thou/mm3 (0.00-0.00); Lymphocytes # (Auto) 0.8 Thou/mm3 (1.0-4.8); Lymphocytes % (Auto) 8 % (10-50); Mean Corpuscular HGB Conc 32.9 g/dl (31.0-37.0); Mean Corpuscular Volume 97 fL (80-100); Monocytes # (Auto) 0.9 Thou/mm3 (0.0-0.8); Monocytes % (Auto) 9 % (0-12); Neutrophils # (Auto) 8.3 Thou/mm3 (1.8-7.7); Neutrophils % (Auto) 82 % (37-80); Nucleated Red Blood Cell % 0 /100 WBC (0); Platelet Count 179 Thou/mm3 (140-440); RDW Standard Deviation 55.9 fL (35.1-43.9); Red Blood Count 2.66 Miln/mm3 (4.50-5.90); White Blood Count 10.1 Thou/mm3 (3.8-10.6)
[2024-10-05 05:28] LABS: Hemoglobin 8.5 g/dL (13.5-16.0)
[2024-10-05] MEDS: VANCOMYCIN/NS 1 GM IVPB 200 ML IV (05:42)
[2024-10-05] MEDS: MIDODRINE 5 MG TABLET 10 MG PO ×3 (06:32→22:32)
[2024-10-05 06:56] LABS: Alanine Aminotransferase 36 U/L (10-49); Albumin, Serum 3.2 gm/dL (3.4-4.8); Albumin/Globulin Ratio 1.3 (1.2-2.2); Alkaline Phosphatase 89 U/L (46-116); Anion Gap 12 (7-16); Aspartate Amino Transferase 41 U/L (0-34); BUN/Creatinine Ratio 12 Ratio (12-20); Bilirubin,Total 0.5 mg/dL (0.3-1.2); Blood Urea Nitrogen 45 mg/dL (9-23); Calcium (Corrected) 8.6 mg/dL (8.5-10.1); Chloride 100 mMol/L (98-107); Creatinine (Component) 3.8 mg/dL (0.6-1.3); Estimated Creatinine Clearance 19.3 mL/min (>60); Globulin 2.5 gm/dL (2.3-3.5); Glucose 109 mg/dL (74-106); Magnesium 1.8 mg/dL (1.6-2.6); Osmolality,Calculated 286 (275-295); Phosphorous 5.1 mg/dL (2.4-5.1); Potassium 3.3 mMol/L (3.4-5.1); Sodium 137 mMol/L (136-145); Total Protein 5.7 gm/dL (5.7-8.2); eGFR 16 See Note
[2024-10-05 08:30] LABS: Glucose Estimated Average 108 mg/dL (80-131); Hemoglobin A1C 5.4 % Hgb (4.8-6.0)
[2024-10-05] MEDS: LACTULOSE SYRUP 20 GM/30 ML UDC 10 GM PO (09:13)
[2024-10-05] MEDS: SENNA TABLET 1 TAB PO (09:18)
[2024-10-05] MEDS: AMIODARONE HCL 200 MG TABLET PO ×2 (09:19→20:26)
[2024-10-05] MEDS: ASPIRIN EC 81 MG TABEC PO (09:19)
[2024-10-05] MEDS: PRAMIPEXOLE 0.25 MG TABLET 0.5 MG PO ×2 (09:20→20:24)
[2024-10-05] MEDS: CLOPIDOGREL BISULFATE 75 MG TABLET PO (09:20)
[2024-10-05] MEDS: PANTOPRAZOLE INJ 40 MG VIAL IVP (09:21)
[2024-10-05] MEDS: ENOXAPARIN SOD INJ 40 MG/0.4 ML SYRINGE SC (09:21)
[2024-10-05] MEDS: VIT B12/Vit C/FA (Nephrovite) TABLET 1 TAB PO (09:22)
[2024-10-05] MEDS: HYDROcodone/APAP 5/325 TABLET 1 TAB PO ×3 (09:39→20:32)
[2024-10-05] MEDS: VANCOMYCIN/NS 500 MG IVPB 100 ML 120 MG IV (09:43)
--- NOTE | 2024-10-05 09:59 | PC.SS ---
Follow up note: Pending surgical and ortho recommendations.
[2024-10-05] MEDS: POTASSIUM CHLORIDE 20 mEq TABCR PO (12:09)
[2024-10-05 12:30] LABS: Sed Rate (ESR) 7 mm/hr (0-20)
[2024-10-05 12:39] LABS: C-Reactive Protein 12.1 mg/dL (0.0-0.9)
--- NOTE | 2024-10-05 14:17 | PC.NURSE ---
notified md Oakley of procedure postponed until Thursday due to blood thinner taken today per Md Riggs. Md Riggs recommend holding blood thinner til thursday10/07/24 and draw coag in the morning. Akilah BOWMAN also made aware.
--- NOTE | 2024-10-05 14:51 | PD.SUROPNT ---
Date of Procedure 10/05/24 Surgeon Dominik Ann MD
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
--- NOTE | 2024-10-05 16:21 | PC.SS ---
SS met with patient regarding his d/c plan. Pt is alert/oriented. Pt was admitted for CAP vs. Cellulitis. Pt confirmed demographic and contact information is correct on facesheet. Pt resides with . Pt ambulates independently without assistance or DME. Pt is ok with all ADLs. Patient?s pharmacy of choice is [facility] [address]. Pt named his , Tiffanie Martino medical decision maker if he is unable. SS provided verbal options for d/c to home or SNF. Patient?s choice is to return home upon d/c. Pt does not have an advance directive, SS offered, and pt declined. Pt states he is diabetic and has glucometer/test stips. Pt is not on dialysis. Pt followed up with PCP Aug 2024. D/C plan: Return home Next of Kin: Tiffanie Martino, , phone# [phone] PCP: Dr. Glynn Mckenzie Address: Correct on facesheet
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
[2024-10-05] MEDS: ATORVASTATIN CALCIUM 20 MG TABLET 40 MG PO (20:25)
[2024-10-05] MEDS: PIPER/TAZO 3.375 GM 50 ML IV (20:28)
[2024-10-06] VITALS (26 sets, daily range): BP systolic 88–162; BP diastolic 55–114; PULSE 53–91; RESP 12–19; TEMP 36.4–36.8; O2SAT 95–100
[2024-10-06] MEDS: HYDROcodone/APAP 5/325 TABLET 1 TAB PO ×5 (00:40→21:10)
[2024-10-06] MEDS: MIDODRINE 5 MG TABLET 10 MG PO ×3 (05:08→22:00)
[2024-10-06 06:06] LABS: Basophils # (Auto) 0.1 Thou/mm3 (0.0-0.2); Basophils % (Auto) 0 % (0-2.5); Eosinophils # (Auto) 0.4 Thou/mm3 (0.0-0.5); Eosinophils % (Auto) 4 % (0-10); Hematocrit 26.2 % (41.0-53.0); Immature Granulocytes % (Auto) 1 % (0-0); Immature Granulocytes Auto 0.07 Thou/mm3 (0.00-0.00); Lymphocytes % (Auto) 8 % (10-50); Mean Corpuscular HGB Conc 33.2 g/dl (31.0-37.0); Mean Corpuscular Hemoglobin 32.2 pg (25.0-35.0); Mean Corpuscular Volume 97 fL (80-100); Monocytes # (Auto) 0.7 Thou/mm3 (0.0-0.8); Monocytes % (Auto) 6 % (0-12); Neutrophils % (Auto) 82 % (37-80); Nucleated Red Blood Cell % 0 /100 WBC (0); Platelet Count 187 Thou/mm3 (140-440); White Blood Count 12.2 Thou/mm3 (3.8-10.6)
[2024-10-06 06:21] LABS: Hemoglobin 8.7 g/dL (13.5-16.0)
[2024-10-06 06:28] LABS: Alanine Aminotransferase 33 U/L (10-49); Albumin, Serum 3.1 gm/dL (3.4-4.8); Albumin/Globulin Ratio 1.3 (1.2-2.2); Alkaline Phosphatase 96 U/L (46-116); Anion Gap 10 (7-16); Aspartate Amino Transferase 15 U/L (0-34); BUN/Creatinine Ratio 13 Ratio (12-20); Bilirubin,Total 0.4 mg/dL (0.3-1.2); Blood Urea Nitrogen 57 mg/dL (9-23); Calcium 8.3 mg/dL (8.3-10.6); Carbon Dioxide 24.9 mMol/L (20.0-31.0); Chloride 101 mMol/L (98-107); Creatinine (Component) 4.4 mg/dL (0.6-1.3); Globulin 2.4 gm/dL (2.3-3.5); Glucose 108 mg/dL (74-106); Osmolality,Calculated 288 (275-295); Phosphorous 4.6 mg/dL (2.4-5.1); Potassium 3.1 mMol/L (3.4-5.1); Sodium 136 mMol/L (136-145); Total Protein 5.5 gm/dL (5.7-8.2); eGFR 14 See Note
--- NOTE | 2024-10-06 09:16 | PC.NURSE ---
Decreased goal to 1.0 L as BP low.
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
[2024-10-06] MEDS: EPOETIN ALFA-EPBX INJ 10,000 UNIT/ML VIAL (ESRD) 10000 UNIT SC (11:17)
[2024-10-06] MEDS: VIT B12/Vit C/FA (Nephrovite) TABLET 1 TAB PO (12:48)
[2024-10-06] MEDS: POTASSIUM CHLORIDE 20 mEq TABCR PO (12:48)
[2024-10-06] MEDS: ASPIRIN EC 81 MG TABEC PO (12:49)
[2024-10-06] MEDS: SENNA TABLET 1 TAB PO (12:49)
[2024-10-06] MEDS: CLOPIDOGREL BISULFATE 75 MG TABLET PO (12:49)
[2024-10-06] MEDS: PRAMIPEXOLE 0.25 MG TABLET 0.5 MG PO ×2 (12:49→21:10)
[2024-10-06] MEDS: PIPER/TAZO 3.375 GM 50 ML IV ×2 (12:50→21:07)
[2024-10-06] MEDS: PANTOPRAZOLE INJ 40 MG VIAL IVP (12:50)
[2024-10-06] MEDS: VANCOMYCIN/NS 1 GM IVPB 200 ML IV (12:50)
--- NOTE | 2024-10-06 13:11 | PC.NURSE ---
PT WAS GIVEN MORNING MEDICATION AFTER RETURNING FROM HD. CALLED DR. CASTRO D/T BP BEING 94/56 AND PT HAVING [address] CASTRO SAID TO HOLD METOPROLO, LASIX, AND AMIODARONE.
[2024-10-06] MEDS: INSULIN LISPRO (AdmeLOG) 1 UNIT/0.01 ML UNIT SC (17:27)
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
[2024-10-06] MEDS: AMIODARONE HCL 200 MG TABLET PO (21:20)
[2024-10-06] MEDS: ATORVASTATIN CALCIUM 20 MG TABLET 40 MG PO (21:59)
[2024-10-07] VITALS (14 sets, daily range): BP systolic 106–126; BP diastolic 57–73; PULSE 49–115; RESP 12–20; TEMP 36.1–36.6; O2SAT 95–100; BMI 27.9
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
[2024-10-07] MEDS: HYDROcodone/APAP 5/325 TABLET 1 TAB PO ×3 (01:08→20:10)
[2024-10-07 05:43] LABS: Basophils # (Auto) 0.1 Thou/mm3 (0.0-0.2); Basophils % (Auto) 1 % (0-2.5); Eosinophils # (Auto) 0.5 Thou/mm3 (0.0-0.5); Eosinophils % (Auto) 4 % (0-10); Hemoglobin 9.1 g/dL (13.5-16.0); Immature Granulocytes % (Auto) 1 % (0-0); Immature Granulocytes Auto 0.09 Thou/mm3 (0.00-0.00); Lymphocytes # (Auto) 1.3 Thou/mm3 (1.0-4.8); Lymphocytes % (Auto) 10 % (10-50); Mean Corpuscular HGB Conc 32.5 g/dl (31.0-37.0); Mean Corpuscular Hemoglobin 31.5 pg (25.0-35.0); Mean Corpuscular Volume 97 fL (80-100); Monocytes # (Auto) 0.9 Thou/mm3 (0.0-0.8); Monocytes % (Auto) 7 % (0-12); Neutrophils % (Auto) 78 % (37-80); Nucleated Red Blood Cell % 0 /100 WBC (0); Platelet Count 218 Thou/mm3 (140-440); RDW Standard Deviation 55.8 fL (35.1-43.9); Red Blood Count 2.89 Miln/mm3 (4.50-5.90); White Blood Count 12.7 Thou/mm3 (3.8-10.6)
[2024-10-07 05:59] LABS: Alanine Aminotransferase 35 U/L (10-49); Albumin, Serum 3.3 gm/dL (3.4-4.8); Albumin/Globulin Ratio 1.3 (1.2-2.2); Alkaline Phosphatase 111 U/L (46-116); Anion Gap 9 (7-16); Aspartate Amino Transferase 17 U/L (0-34); BUN/Creatinine Ratio 10 Ratio (12-20); Bilirubin,Total 0.4 mg/dL (0.3-1.2); Blood Urea Nitrogen 40 mg/dL (9-23); Calcium 8.3 mg/dL (8.3-10.6); Calcium (Corrected) 8.9 mg/dL (8.5-10.1); Carbon Dioxide 26.9 mMol/L (20.0-31.0); Chloride 100 mMol/L (98-107); Estimated Creatinine Clearance 19.8 mL/min (>60); Globulin 2.6 gm/dL (2.3-3.5); Glucose 112 mg/dL (74-106); Osmolality,Calculated 282 (275-295); Phosphorous 2.9 mg/dL (2.4-5.1); Potassium 3.1 mMol/L (3.4-5.1); Sodium 136 mMol/L (136-145); Total Protein 5.9 gm/dL (5.7-8.2); Vancomycin,Random 15.7 mcg/mL; eGFR 15 See Note
[2024-10-07] MEDS: PIPER/TAZO 3.375 GM 50 ML IV ×2 (09:03→20:09)
[2024-10-07] MEDS: VANCOMYCIN/NS 1 GM IVPB 200 ML IV (09:03)
[2024-10-07] MEDS: SENNA TABLET 1 TAB PO (09:04)
[2024-10-07] MEDS: PRAMIPEXOLE 0.25 MG TABLET 0.5 MG PO ×2 (09:04→20:10)
[2024-10-07] MEDS: VIT B12/Vit C/FA (Nephrovite) TABLET 1 TAB PO (09:04)
[2024-10-07] MEDS: ASPIRIN EC 81 MG TABEC PO (09:05)
[2024-10-07] MEDS: Furosemide 20 MG TABLET PO (09:05)
[2024-10-07] MEDS: AMIODARONE HCL 200 MG TABLET PO ×2 (09:09→20:09)
[2024-10-07] MEDS: POTASSIUM CHLORIDE 20 mEq TABCR 40 MEQ PO (09:09)
[2024-10-07] MEDS: CLOPIDOGREL BISULFATE 75 MG TABLET PO (09:10)
[2024-10-07] MEDS: PANTOPRAZOLE INJ 40 MG VIAL IVP (09:10)
[2024-10-07] MEDS: INSULIN LISPRO (AdmeLOG) 1 UNIT/0.01 ML UNIT SC (11:49)
[2024-10-07] MEDS: MIDODRINE 5 MG TABLET 10 MG PO ×2 (13:00→21:12)
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
--- NOTE | 2024-10-07 14:32 | PC.SS ---
Rounding note: Patient receiving IV antibiotics. Anticipate discharge tomorrow after patient dialysis session.
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
[2024-10-07] MEDS: ATORVASTATIN CALCIUM 20 MG TABLET 40 MG PO (20:10)
[2024-10-08] VITALS (25 sets, daily range): BP systolic 113–146; BP diastolic 64–104; PULSE 53–121; RESP 12–97; TEMP 36.1–36.6; O2SAT 95–97
[2024-10-08] MEDS: HYDROcodone/APAP 5/325 TABLET 1 TAB PO ×3 (00:06→09:54)
[2024-10-08] MEDS: MIDODRINE 5 MG TABLET 10 MG PO (05:19)
[2024-10-08 06:29] LABS: Basophils % (Auto) 1 % (0-2.5); Eosinophils # (Auto) 0.5 Thou/mm3 (0.0-0.5); Eosinophils % (Auto) 6 % (0-10); Hematocrit 28.1 % (41.0-53.0); Hemoglobin 9.1 g/dL (13.5-16.0); Immature Granulocytes % (Auto) 1 % (0-0); Lymphocytes # (Auto) 1.2 Thou/mm3 (1.0-4.8); Lymphocytes % (Auto) 14 % (10-50); Mean Corpuscular HGB Conc 32.4 g/dl (31.0-37.0); Mean Corpuscular Volume 99 fL (80-100); Monocytes % (Auto) 11 % (0-12); Neutrophils # (Auto) 5.9 Thou/mm3 (1.8-7.7); Neutrophils % (Auto) 68 % (37-80); Nucleated Red Blood Cell % 0 /100 WBC (0); Platelet Count 221 Thou/mm3 (140-440); RDW Standard Deviation 55.4 fL (35.1-43.9); Red Blood Count 2.84 Miln/mm3 (4.50-5.90); White Blood Count 8.8 Thou/mm3 (3.8-10.6)
[2024-10-08 06:51] LABS: Alanine Aminotransferase 41 U/L (10-49); Albumin, Serum 3.6 gm/dL (3.4-4.8); Albumin/Globulin Ratio 1.4 (1.2-2.2); Alkaline Phosphatase 128 U/L (46-116); Anion Gap 9 (7-16); Aspartate Amino Transferase 37 U/L (0-34); BUN/Creatinine Ratio 11 Ratio (12-20); Bilirubin,Total 0.4 mg/dL (0.3-1.2); Blood Urea Nitrogen 46 mg/dL (9-23); Calcium 8.4 mg/dL (8.3-10.6); Calcium (Corrected) 8.7 mg/dL (8.5-10.1); Carbon Dioxide 25.2 mMol/L (20.0-31.0); Chloride 103 mMol/L (98-107); Creatinine (Component) 4.3 mg/dL (0.6-1.3); Estimated Creatinine Clearance 18.4 mL/min (>60); Globulin 2.5 gm/dL (2.3-3.5); Glucose 98 mg/dL (74-106); Magnesium 2.1 mg/dL (1.6-2.6); Osmolality,Calculated 285 (275-295); Phosphorous 2.7 mg/dL (2.4-5.1); Potassium 3.2 mMol/L (3.4-5.1); Sodium 137 mMol/L (136-145); Total Protein 6.1 gm/dL (5.7-8.2); Vancomycin,Random 20.2 mcg/mL; eGFR 14 See Note
[2024-10-08] MEDS: POTASSIUM CHLORIDE 20 mEq TABCR PO (08:00)
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
[2024-10-08] MEDS: EPOETIN ALFA-EPBX INJ 40,000 UNIT/ML VIAL (ESRD) 10000 UNIT SC (10:56)
--- NOTE | 2024-10-08 12:38 | PD.RESPRO ---
Documentation for date of: 10/08/24 Exam Vital Signs Temp Pulse Resp BP Pulse Ox O2 Del Method O2 Flow Rate 97.8 F 70 18 137/81 H 97 Room Air 1 10/08/24 12:02 10/08/24 12:02 10/08/24 12:02 10/08/24 12:02 10/08/24 12:02 10/08/24 07:51 10/07/24 16:00 Narrative Exam GEN: AOx3, difficulty of hearing, able to speak full sentence, lying in bed comfortably HEENT: NC/AC, oral mucosa moist, neck supple CVS: RRR, S1-S2 present, no murmurs appreciated RESP: Distant air sounds bilaterally. GI: soft,non distended, non tender, NBS MSK: Significant improvement of rt knee swelling, with with superficial old abrasion surrounded by erythema, warm and tender on palpation especially at the calf area. Able to move all 4 limbs, +1 bilaterally lower extremity edema SKIN: warm and dry NARCOTICS AND/OR VICE DETECTIVE: CN II-XII and Sensation grossly intact. Objective Labs 10/08/24 05:04 10/08/24 05:04 Labs: Laboratory Results - last 24 hr 10/08/24 05:04 WBC 8.8 RBC 2.84 L Hgb 9.1 L Hct 28.1 L MCV 99 MCH 32.0 MCHC 32.4 RDW Std Deviation 55.4 H Plt Count 221 Neut % (Auto) 68 Lymph % (Auto) 14 [place] % (Auto) 11 Eos % (Auto) 6 Baso % (Auto) 1 Neut # (Auto) 5.9 Lymph # (Auto) 1.2 [place] # (Auto) 1.0 H Eos # (Auto) 0.5 Baso # (Auto) 0.0 Immature Gran # (Auto) 0.10 H Absolute Nucleated RBC 0.00 Immature Gran % 1 H Nucleated RBC % 0 Sodium 137 Potassium 3.2 L Chloride 103 Carbon Dioxide 25.2 Anion Gap 9 BUN 46 H Creatinine 4.3 H* Estim Creat Clear Calc 18.4 L eGFR 14 L* BUN/Creatinine Ratio 11 L Glucose 98 Calculated Osmolality 285 Calcium 8.4 Corrected Calcium 8.7 Phosphorus 2.7 Magnesium 2.1 Total Bilirubin 0.4 AST 37 H ALT 41 Alkaline Phosphatase 128 H Total Protein 6.1 Albumin 3.6 Globulin 2.5 Albumin/Globulin Ratio 1.4 Random Vancomycin 20.2 ABG Interpretation ABG results: 10/04/24 07:55 ABG pH 7.45 ABG pCO2 34 ABG pO2 81 L ABG HCO3 24 ABG O2 Saturation 96 ABG Base Excess 0 Quality Measures Quality Measures none Assessment & Plan Assessment Current Active Medications: Generic Name Dose Route Start Last Admin Trade Name Freq PRN Reason Stop Dose Admin Acetaminophen 650 mg 10/04/24 09:52 10/05/24 04:04 Acetaminophen 325 Mg Tablet PO 11/03/24 09:51 650 mg Q6H PRN Administration Fever >101.5 Acetaminophen 650 mg 10/04/24 09:52 Acetaminophen 325 Mg Tablet PO 11/03/24 09:51 Q6H PRN PAIN SCALE 1-3 (mild Hydrocodone Bitart/Acetaminophen 1 tab 10/04/24 09:52 10/08/24 09:54 Hydrocodone/Apap 5/325 Tablet PO 10/09/24 09:51 1 tab Q4HR PRN Administration PAIN SCALE 4-6 (Moderate Albuterol 2 puff 10/05/24 06:53 Albuterol Inh 8 Gm INH 11/04/24 06:52 QID PRN sob Amiodarone HCl 200 mg 10/05/24 09:00 10/08/24 09:08 Amiodarone Hcl 200 Mg Tablet PO 11/04/24 08:59 Not Given BID VIKRAM Aspirin 81 mg 10/05/24 09:00 10/08/24 12:31 Aspirin Ec 81 Mg Tabec PO 11/04/24 08:59 Not Given QDAY VIKRAM Atorvastatin Calcium 40 mg 10/05/24 21:00 10/07/24 20:10 Atorvastatin Calcium 20 Mg Tablet PO 11/04/24 20:59 40 mg QPM VIKRAM Administration Clopidogrel Bisulfate 75 mg 10/05/24 09:00 10/08/24 09:09 Clopidogrel Bisulfate 75 Mg Tablet PO 11/04/24 08:59 Not Given QDAY VIKRAM Dextrose 25 ml 10/04/24 14:14 Dextrose 50%-Water Inj 50 Ml Syringe IV 11/03/24 14:13 Q15MIN PRN BG 50-70 responsive npo pt Dextrose 50 ml 10/04/24 14:14 Dextrose 50%-Water Inj 50 Ml Syringe IV 11/03/24 14:13 Q15MIN PRN BG <50 OR BG <70 & pt unresponsive Doxazosin Mesylate 2 mg 10/05/24 09:00 10/05/24 09:21 Doxazosin Mesylate 1 Mg Tablet PO 11/04/24 08:59 Not Given QDAY [facility] Epoetin Jose 10,000 unit 10/08/24 14:00 10/08/24 10:56 Epoetin Jose-Epbx Inj 40,000 Unit/Ml Vial (Esrd) SC 10/08/24 14:01 10,000 unit X1 ONE Administration Furosemide 20 mg 10/05/24 09:00 10/08/24 09:09 Furosemide 20 Mg Tablet PO 11/04/24 08:59 Not Given QDAY [facility] Glucagon 1 mg 10/04/24 14:14 Glucagon Inj 1 Mg Vial IM Q15MIN PRN BG <70, and no IV access Piperacillin/Tazobactam/Dextrose 50 mls @ 12.5 mls/hr 10/05/24 21:00 10/08/24 09:10 Zosyn IV 10/12/24 20:59 Not Given Q12HR [facility] Protocol Insulin Human Lispro 0 unit 10/04/24 17:00 10/08/24 12:30 Insulin Lispro (Admelog) 1 Unit/0.01 Ml Unit SC 11/03/24 16:59 Not Given AC [facility] Protocol Lactulose 10 gm 10/05/24 15:30 Lactulose Syrup 20 Gm/30 Ml Udc PO 11/04/24 08:59 QDAY PRN CONSTIPATION Protocol Metoprolol Succinate 25 mg 10/08/24 09:00 10/08/24 09:09 Metoprolol Succinate Xl 25 Mg Tabcr PO 11/07/24 08:59 Not Given QDAY [facility] Midodrine 5 mg 10/08/24 14:00 Midodrine 5 Mg Tablet PO 11/07/24 13:59 TID [facility] Ondansetron HCl 4 mg 10/04/24 09:52 Ondansetron Inj 2 Mg/Ml Inj 2 Ml IV 11/03/24 09:51 Q6H PRN NAUSEA OR VOMITING Protocol Pantoprazole Sodium 40 mg 10/05/24 09:00 10/08/24 09:09 Pantoprazole Inj 40 Mg Vial IVP 11/04/24 08:59 Not Given QDAY [facility] Pharmacy Consult 1 each 10/05/24 09:00 Vancomycin Pharmacy To Dose 1 Each Each IV 11/04/24 08:59 QDAY PRN PROTOCOL Pramipexole Dihydrochloride 0.5 mg 10/05/24 09:00 10/08/24 09:10 Pramipexole 0.25 Mg Tablet PO 11/04/24 08:59 Not Given BID VIKRAM Sennosides 1 tab 10/05/24 09:00 10/08/24 09:10 Senna Tablet PO 11/04/24 08:59 Not Given QDAY [facility] Protocol Vitamin B Complex/Vit C/Folic Acid 1 tab 10/05/24 09:00 10/08/24 09:10 Vit B12/Vit C/Fa (Nephrovite) Tablet PO 11/04/24 08:59 Not Given QDAY VIKRAM
--- NOTE | 2024-10-08 12:40 | PC.NURSE ---
pt. received back on floor from dialysis with bp 137/81. HR70, Tx time 3 hr removed 2 L . Pt. stable and havimng the lunch right now
--- NOTE | 2024-10-08 13:27 | ESDS_ITS ---
Planned Discharge Date 10/08/24 DS: Providers Provider Date of admission: 10/04/24 09:52 Primary care physician: Glynn Mckenzie MD Admitting Provider: Em Dubois MD Attending Provider on Admission: Jas Meyers MD Consults: 10/04/24 09:17 Consult to Nephrology Stat Comment: ESRD Consulting Provider: Rizwan Azevedo 10/05/24 08:39 Consult to General Surgery Stat Comment: Consulting Provider: Shakila Chandler 10/05/24 11:42 Consult to Orthopedic Stat Comment: hematoma possibly infected, overlying prosthetic k Consulting Provider: Dominik Ann 10/07/24 08:18 PT [Referral Physical Therapy] Routine Comment: Physician Instructions: Attending Provider on DC: Jas Meyers MD Discharging Provider: Miriam Cain MD DS: Diagnosis Problem List Completed Was Problem List Reviewed/Reconciled?: Yes Hospital Course Hospital Course Hospital course: 72-year-old male with a past medical history of CAD s/p stents, CHF s/p ICD, ESRD on TTS hemodialysis, DM type II, atrial flutter who was recently discharged from the hospital 2 weeks ago following anasarca secondary to inadequate fluid removal from hemodialysis. The patient was complaining of bilateral lower extremity pain following a fall from his scooter when she was riding to come to hemodialysis . Also reported subjective complaint of fever, and generalized weakness. Associated worsening shortness of breath. Initial imaging in the emergency room shows pneumonia, as well as fluid overload. The patient reported history of fall recently from a scooter, injured his right thigh noted right thigh cellulitis/possible abscess versus hematoma on the medial side above the knee. Patient has a history of knee surgery with hardware placement, general surgeon Dr Ely was consulted who recommended consulting orthopedic surgeon as patient has history of knee repair surgery and hardware placement. Patient admitted to the medical floor for acute CHF exacerbation, cellulitis, pneumonia. Knee MRI on 10/07/2024 showed solid-appearing nonenhancing mass in the soft tissue medial to the distal femur, possible differentials include hematoma versus soft tissue abscess, not amenable to CT-guided catheter aspiration as no significant liquid contents. On clinical evaluation, presentation is more consistent with hematoma as patient is on dual antiplatelet therapy following her recent PCI. Orthopedic surgeon Dr. Ann was consulted who recommended against any surgical intervention at this point, agrees with the evaluation of possible hematoma, recommended conservative management. Even though his notes state knee aspiration, it is unable to CT-guided aspiration as well as when we spoke to the orthopedic surgeon he recommended against doing any surgical intervention . Also noted continued improvement in swelling size and tenderness, to be continued with conservative management. General surgery was already consulted who recommended to consult orthopedic surgery due to placement of prosthetic joint. The patient is stable, ambulatory, afebrile and tolerating Per oral medications at the time of discharge. The patient understood and agreed to the treatment plan. ?Recommend following up with your primary care physician and industrial automation engineer Dr. Vincent Morgan within 5 days of discharge from hospital, you have been started on new medication midodrine due to decreasing blood pressure, recommend stopping antihypertensive medications including hydralazine, doxazosin and metoprolol succinate, you we will need to reconcile your medications with your primary doctor regarding resuming home medications and discontinuing midodrine if blood pressure stays within normal limits. ?Recommend following up with your lead database developer Dr Azevedo and strict compliance with hemodialysis. ?Continue antibiotic doxycycline for 5 more days for treatment of pneumonia. ?In case of worsening symptoms please return to the emergency room. #Acute hypoxic respiratory failure #Pneumonia #ESRD on hemodialysis TTS #Acute CHF exacerbation ? Complaining of shortness of breath, currently seen on oxygen saturating well on 2 L. Previously seen in the hospital for anasarca, following inadequate dialysis. Nephrology Dr Azevedo is following the patient, ER contacted Dr. Azevedo, patient will get hemodialysis today. Chest dialysis shows concern for pneumonia. Patient started on antibiotics. Will get sputum cultures and blood cultures. Ordered CT right lower extremity which was negative for acute abscess, showed solid mass likely hematoma. Physical findings consistent with cellulitis, will continue antibiotics. Patient also has infiltrates on the chest x-ray, likely volume overload versus pneumonia. Dr. Patel is following the patient and hemodialysis will be done inpatient. Will follow microbiology results to narrow antibiotics once available. ? IV Zosyn ? IV vancomycin ? Follow blood cultures ? Hemodialysis as per schedule, nephrology following, appreciate recommendations ? Fluid restriction to 1000 cc daily. ? Daily weight, strict input and output measurement ? Renal diet ? Continue home Lasix ? Nephrology consulted, appreciate recommendations #Hematoma General surgery had recommended orthopedic surgery consult due to 6.5 into 5.7 hematoma medial to the distal femur and knee, also reported small knee effusion. And cellulitis pattern with edema lateral to right hip and lateral thigh extending to medial thigh, per orthopedic recommendation no surgical management for the hematoma or joint is needed as patient is currently on antiplatelets, which unfortunately cannot be stopped due to recent PCI 2 months ago. Spoke to industrial automation engineer Dr. Morgan, who recommended continuing with antiplatelets. As the hematoma is not expanding in size. There was concern for infected hematoma as physical exam is pertinent for warm tender and edematous area on the medial thigh despite being 1 week old. - The patient was on Lovenox for DVT prophylaxis. Will discontinue Lovenox and start the patient on SCDs. - Ordered MRI knee joint, will cancel knee joint aspiration as orthopedic surgeon is not concerned about prosthetic knee joint infection. #CAD status post PCI #A flutter #Hyperlipidemia ?Patient had two- stents with the most recent being July 2024, Per cardiology, DAPT therapy aspirin Plavix will be continued because of complex PCI multivessel stent placement. Continue DAPT with aspirin and Plavix Chads Vascor 5 Continue antiarrhythmic medication amiodarone 200 mg p.o. twice daily Continue hyperlipidemia medication atorvastatin 40 mg nightly Holding anticoagulation due to recent hospitalization with GI bleed #Type 2 diabetes mellitus Sliding scale insulin for coverage #Hypertension ? Hold home blood pressure medications due to concern for hypertension including doxazosin hydralazine and metoprolol, _ Can continue with Lasix for now as patient is making some urine and is volume overloaded at the moment. Case discussed with my attending Dr. Luigi Cain MD PGY2 Status at Discharge Overall status at discharge: patient is progressing back to baseline Time Spent with Patient Time attestation: Total time spent providing and/or coordinating discharge services: 30 minutes Home Health Home Health Referral Orders: 10/08/24 11:01 Home Health Referral Routine Reason For Exam: Home PT Home-Bound The patient must either because of illness or injury, need the aid of supportive devices such as crutches, canes, wheelchairs, and walkers; the use of special transportation; or the assistance of another person in order to leave their place of residence; OR have a condition such that leaving his or her home is medically contraindicated. In addition, the patient also meets the following criteria: patient is normally unable to leave the home and leaving home requires considerable taxing effort. Addendum to Home Health Certification Practitioner's Certification: I certify that the patient has been under my care in the hospital and the care of attending physician (see below). We had a [id number] encounter on (see date below). My clinical findings indicate that the patient is home bound per the above criteria and the Home Health Services noted in these orders are medically necessary. The primary reason for the [id number] encounter is related to the fact that the patient requires home health services. Date Certifying [id number] Physician Encounter: 10/04/24 Physician's Name who will Assume Oversight for Services: Glynn Mckenzie Physician's Phone No.who will Assume Oversight for Service: MOLDER MACHINE TENDER - Community Resources: Yes PT to Evaluate: Yes PT to evaluate and provide a treatmnet plan to increase patient's mobility and strength. Wound Care: No IV Therapy: No RN Safety Evaluation: Yes RN to evaluate and create a plan of care that will produce positive outcomes. Palliative Treatment: No Palliative treatment and evaluate the need for hospice. Home Health Aide - Personal Care: Yes Home Health Aide to assist with any ADL's. Exam Vital Signs Temp Pulse Resp BP Pulse Ox O2 Del Method O2 Flow Rate 97.8 F 70 18 137/81 H 97 Room Air 1 10/08/24 12:02 10/08/24 12:02 10/08/24 12:02 10/08/24 12:02 10/08/24 12:02 10/08/24 07:51 10/07/24 16:00 Narrative Exam GEN: Patient seems to be comfortable HEENT: NC/AC, oral mucosa moist, neck supple CVS: RRR, S1-S2 present, no murmurs appreciated RESP: Distant air sounds bilaterally. GI: soft,non distended, non tender, NBS MSK: Significant improvement of rt knee swelling, with superficial old abrasion surrounded by erythema, warm and tender on palpation especially at the calf area. Able to move all 4 limbs, +1 bilaterally lower extremity edema SKIN: warm and dry CIGARETTE CARTON SEALER: CN II-XII and Sensation grossly intact. Discharge Plan Plan Patient Disposition: Home w/HOME HEALTH Care Plan Goals: Recommend following up with your primary care physician and industrial automation engineer Dr. Vincent Morgan within 5 days of discharge from hospital, you have been started on new medication midodrine due to decreasing blood pressure, recommend stopping antihypertensive medications including hydralazine, doxazosin and metoprolol succinate, you we will need to reconcile your medications with your primary doctor regarding resuming home medications and discontinuing midodrine if blood pressure stays within normal limits. Recommend following up with your lead database developer Dr Azevedo and strict compliance with hemodialysis. Continue antibiotic doxycycline for 5 more days for treatment of pneumonia. In case of worsening symptoms please return to the emergency room. Prescriptions/Referrals Prescriptions/Med Rec: New midodrine 5 mg Tablet 5 mg PO QID 14 Days Qty: 56 0RF doxycycline hyclate 100 mg capsule 100 mg PO BID Qty: 10 0RF Continued Homa-Franci 0.8 mg tablet 1 tab PO QDAY amiodarone 200 mg tablet 200 mg PO BID nitroglycerin 0.3 mg tablet, sublingual 0.3 mg buccal Q5MIN MDD 3 pills within 15 minutes. PRN (Reason: chest pain) Qty: 15 0RF Rx Instructions: Place under tongue when chest pain starts. Can repeat dose in 5 minutes if pain does not improve with max total of 3 pills within 15 minutes. Do not mix with erectile dysfunction medicines. May cause low blood pressure and headaches. pramipexole 0.5 mg Tablet 0.5 mg PO BID albuterol sulfate 90 mcg/actuation Hfa Aerosol Inhaler 2 puff INHALATION QID PRN (Reason: sob) lactulose 10 gram/15 mL Solution 10 g PO QDAY atorvastatin 40 mg Tablet 40 mg PO QPM clopidogrel 75 mg Tablet 75 mg PO QDAY furosemide 20 mg Tablet 20 mg PO QDAY aspirin 81 mg Capsule 81 mg PO QDAY melatonin 10 mg Capsule 10 mg PO HS PRN (Reason: Insomnia) Discontinued hydrocodone-acetaminophen 10-325 mg tablet 10 - 325 tab PO Q6H PRN (Reason: Pain) hydralazine 50 mg Tablet 25 mg PO BID Qty: 30 0RF doxazosin 1 mg Tablet 2 mg PO QDAY metoprolol succinate 50 mg tablet extended release 24 hr 50 mg PO QDAY Qty: 30 0RF Referrals: Glynn Mckenzie MD [Primary Care Provider] - Patient/Caregiver Discharge Instructions Print Language: Yi Stand Alone Forms: Annabella Award Info., Patient Portal Info Letter Discharge Order Discharge Orders: Discharge (Routine); Ordered 10/08/24 Ordered By: Miriam Cain Quality Discharge Quality Measures VTE prophylaxis Attestestation Attestation I reviewed labs, imaging, EKG, home medications and prior available records. Face to face evaluation was performed by me. I have personally examined the patient and discussed assessment and plan with the IM team. I reviewed the resident note and agree with the plan with exceptions as below. Right thigh hematoma/abscess Right thigh cellulitis CAD in [place] coronary artery Chronic CHF Status post AICD ESRD on hemodialysis Sepsis, possibly 2 CAP versus cellulitis Acute hypotension P.o. doxycycline upon discharge Orthopedic surgery recommended no intervention but stopping antiplatelet therapy. Ordered knee MRI that showed stable hematoma Avoid injuries to the knee and strenuous activities Management of pain as needed Trend WBC: Downtrending Consulted cardiology for the anticoagulation management given his CAD history: Recommended to continue aspirin and Plavix Hold metoprolol given the borderline BP Outpatient follow-up with nephrology for the management of ESRD/hemodialysis Time spent is 40 minutes. More than 50% of the time was spent on patient education and coordination of care.
--- NOTE | 2024-10-10 08:03 | PC.CC ---
Addendum entered by Beverley Chinchilla RN 10/10/24 10:26: Pt booked with [facility] pending SOC Original Note: Pt entered into [facility], referrals sent to all home health, pt had no preference documented
--- NOTE | 2024-10-11 15:09 | PC.CM ---
Reached out to [facility] for start of care date. Phone keeps ringing and unable to leave .
--- NOTE | 2024-10-12 17:28 | PC.CM ---
Tanvi BELL [facility]
== END 2024-10-08 15:37 | disposition home health service (06) | DRG 602 ==
LOC: SERX 09:25 → SERHOLD 10:06 → S3SX 16:27
PROVIDERS: Student in an Organized Health Care Education/Training Program; Admitting Provider Internal Medicine; Emergency Provider Emergency Medicine; PCP Internal Medicine; Visit Provider Student in an Organized Health Care Education/Training Program
DX: L03.115 Cellulitis of right lower limb (principal); I50.23 Acute on chronic systolic (congestive) heart failure; J18.9 Pneumonia, unspecified organism; N18.6 End stage renal disease; J96.01 Acute respiratory failure with hypoxia; I13.2 Hypertensive heart and chronic kidney disease with heart failure and with stage 5 chronic kidney disease, or end stage renal disease; I48.92 Unspecified atrial flutter; I25.10 Atherosclerotic heart disease of native coronary artery without angina pectoris; E11.22 Type 2 diabetes mellitus with diabetic chronic kidney disease; E78.5 Hyperlipidemia, unspecified; I48.91 Unspecified atrial fibrillation; M25.561 Pain in right knee; I95.89 Other hypotension; Z95.5 Presence of coronary angioplasty implant and graft; Z95.810 Presence of automatic (implantable) cardiac defibrillator; Z99.2 Dependence on renal dialysis; Z96.651 Presence of right artificial knee joint; Z79.899 Other long term (current) drug therapy; Z87.891 Personal history of nicotine dependence; Z79.82 Long term (current) use of aspirin; V00.831A Fall from motorized mobility scooter, initial encounter; Y92.410 Unspecified street and highway as the place of occurrence of the external cause
CPT/HCPCS: 36415; 36600; 71045; 73562; 73590; 73630; 73701; 73723; 80053; 80069; 80202; 82803; 83036; 83605; 83735; 83880; 84100; 84484; 85025; 85652; 86140; 87040; 87070; 87081; 87205; 87400; 87811; 89051; 93005; 93225; 96365; 96366; 96367; 97162; 99285; A4649; J0456; J0696; J1650; J1815; J1940; J2270; J2470; J2543; J3370; J7050; Q5105; Q9967; A9270

== ENCOUNTER → 2025-02-09 | Outpatient (CLI) | payer OTHER, SELFPAY ==
--- NOTE | 2025-02-09 | XR_ITS ---
Examination: Toes, right foot first digit 2 views Technique: Toes AP lateral first digit right foot 2 views Date and time of exam: February 09, 2025 1203 hours INDICATIONS: Injury to the first digit 2 days ago with pain. FINDINGS: Advanced osteoarthritis first metatarsophalangeal joint No fracture or dislocation IMPRESSION: No fracture or dislocation
== END | disposition home or self-care (01) ==
PROVIDERS: PCP Internal Medicine
DX: S99.921A Unspecified injury of right foot, initial encounter (principal); X58.XXXA Exposure to other specified factors, initial encounter
CPT/HCPCS: 73660

== ENCOUNTER 2025-03-12 06:03 | Emergency (ER) | payer OTHER, SELFPAY ==
[2025-03-12 06:05] VITALS: BMI 29.8
[2025-03-12 06:11] VITALS: BP 126/64; PULSE 60; RESP 22; TEMP 36.6; O2SAT 97
--- NOTE | 2025-03-12 06:38 | PD.EDFALL ---
ED Fall Injury RME/HPI General Chief Complaint: Shortness of Breath/Dyspnea Stated Complaint: FALL, BACK PAIN , SOB Time Seen by Provider: 03/12/25 06:30 Arrival date/time: 03/12/25 06:03 Limitations: no limitations RME / HPI RME / HPI Narrative: 74 year old male with history of HFrEF (35-40% 08/2024), CAD s/p stents, atrial flutter, s/p pacemaker placement, on Plavix, hypertension, diabetes, ESRD on HD T//Thu, multiple spinal fusions presents to the ED with worsening back pain after a fall 4 days ago. Patient reports that he sitting on his walker, likely dozing off, when he fell backwards, striking his back on a TV stand. Since the fall, he has had pain to the mid back and right sided posterior rib cage. States the pain has been constant and is accompanied by shortness of breath, which he attributes to the pain. Denies taking any medications for pain. Denies head injury or LOC. Related Data Home Medications ?Medication ?Instructions ?Recorded ?Confirmed amiodarone 200 mg tablet 200 mg PO BID 07/13/23 09/15/24 vitamin B complex-vitamin C-folic 1 tab PO QDAY 07/13/23 09/15/24 acid 0.8 mg tablet (Homa-Franci) albuterol sulfate 90 mcg/actuation 2 puff inhalation QID PRN sob 09/07/24 09/15/24 aerosol inhaler pramipexole 0.5 mg tablet 0.5 mg PO BID 09/07/24 09/15/24 aspirin 81 mg capsule 81 mg PO QDAY 09/15/24 09/15/24 atorvastatin 40 mg tablet 40 mg PO QPM 09/15/24 09/15/24 clopidogrel 75 mg tablet 75 mg PO QDAY 09/15/24 09/15/24 furosemide 20 mg tablet 20 mg PO QDAY 09/15/24 09/15/24 lactulose 10 gram/15 mL oral 10 g PO QDAY 09/15/24 09/15/24 solution melatonin 10 mg capsule 10 mg PO HS PRN Insomnia 09/15/24 09/15/24 Previous Rx's ?Medication ?Instructions ?Recorded nitroglycerin 0.3 mg sublingual 0.3 mg buccal Q5MIN PRN chest pain 07/26/24 tablet #15 tabs doxycycline hyclate 100 mg capsule 100 mg PO BID #10 caps 10/08/24 hydrocodone 5 mg-acetaminophen 325 1 tab PO Q8H PRN pain #20 tabs 03/12/25 mg tablet Allergies Allergy/AdvReac Type Severity Reaction Status Date / Time No Known Allergies Allergy Verified 03/12/25 06:04 Review of Systems Review of Systems Systems Reviewed: All systems reviewed, normal except as documented Past Medical History Past Medical History CARDIAC: Positive Cardiac Disorders, Myocardial Infarction, Cardiac Arrhythmia, Atrial Fibrillation, Angina, Congestive Heart Failure and Hypertension RESPIRATORY: Positive Asthma and Pneumonia GASTROINTESTINAL: Positive Gastrointestinal Disorders and Obesity GENITOURINARY: Positive Genitourinary Disorders, Renal Disease, Dialysis and Benign Prostatic Hyperplasia MUSCULOSKELETAL: Positive Musculoskeletal Disorders, Arthritis and Degenerative Joint Disease ENT: Positive Cataracts and Deafness ENDOCRINE: Positive Endocrine Disorders and Diabetes Mellitus Type 2 HEMATOLOGIC: Positive Blood Disorders and Anemia PSYCHO/SOCIAL: Positive Depression and Anxiety OTHER HISTORY: Positive Hospitalization, Shingles, Chicken Pox and Measles Family History FAMILY HISTORY: Positive Family Cardiac Disorders Surgical History SURGICAL: Positive Coronary Stent, Pacemaker, Angiogram, Joint Replacement and Arthroscopy Social History SMOKING STATUS: Former smoker SECOND HAND EXPOSURE: No SUBSTANCE USE: marijuana ED Exam General Limitations: Present no limitations General appearance: Present alert and in no apparent distress Head Head exam: Present atraumatic, normocephalic and normal inspection Eye Eye exam: Present normal appearance, PERRL and EOMI ENT ENT exam: Present normal exam, normal oropharynx and mucous membranes moist Neck Neck exam: Present normal inspection, full ROM and trachea midline Chest Chest inspection: Present normal inspection and symmetric chest wall rise Respiratory Respiratory exam: Present normal lung sounds bilaterally Cardiovascular Cardiovascular exam: Present regular rate, normal rhythm and normal heart sounds Abdominal Exam Abdominal exam: Present soft and normal bowel sounds Extremities Exam Extremities exam: Present normal inspection and full ROM Back Exam Back exam: Present full ROM and other (tenderness over the thoracic spine T10 - T12, tenderness to the back over the lateral ribs ) Neurological Exam Neurological exam: Present alert, oriented X3 and CN II-XII intact Psychiatric Psychiatric exam: Present normal affect and normal mood Skin Skin exam: Present warm, dry, intact and normal color Course Quality Measures none Orders Category Date Time Status Remote Pilot Operator NOW Care 03/12/25 06:39 Active Continuous Pulse Oximetry NOW Care 03/12/25 06:39 Completed EKG (ED ONLY) *Do not use* NOW Care 03/12/25 06:15 Completed EKG (ED Only) Stat Exams 03/12/25 06:15 Ordered XR ribs RT min 3V w CXR1V Stat Exams 03/12/25 06:39 Completed XR thoracic spine 2V Stat Exams 03/12/25 06:39 Completed CBC Stat Lab 03/12/25 07:45 Completed Comprehensive Metabolic Panel Stat Lab 03/12/25 07:45 Received Partial Thromboplastin Time Stat Lab 03/12/25 07:45 Received Prothrombin Time with INR Stat Lab 03/12/25 07:45 Received HYDROcodone*/APAP 5/325 [Sabine 5/325] Med 03/12/25 06:41 Discontinued 1 tab PO X1 ONE Ketorolac Inj [Toradol Inj] Med 03/12/25 06:45 Discontinued 30 mg IM X1 ONE Vital Signs Vital signs: Vital Signs Temperature 97.9 F 03/12/25 06:11 Pulse Rate 60 03/12/25 06:11 Respiratory Rate 22 H 03/12/25 06:11 Blood Pressure 126/64 03/12/25 06:11 Pulse Oximetry (%) 97 03/12/25 06:11 Oxygen Delivery Method Aerosol Mask 03/12/25 06:11 Fall MDM Narrative MDM Narrative:: Debi Johnston am scribing for and in the presence of Dr. Baldwin. Patient data External records reviewed:: [facility] previous records (I reviewed admission from 10/04/2024 through 10/08/2024 for acute CHF exacerbation, cellulitis, pneumonia.) Clinical information provided by:: patient Social determinants that could affect healthcare access:: none Patient has the following chronic illnesses:: HFrEF (35-40% 08/2024), CAD s/p stents, atrial flutter, s/p pacemaker placement, on Plavix, hypertension, diabetes, ESRD on HD T//Thu, multiple spinal fusions How is presenting disease/condition affected by chronic disease/condition?: exacerbated by Evaluation data The following diagnostics were reviewed and interpreted by me:: lab results, radiology exam(s) and EKG tracing(s) (03/12/2025 @ 6:16. 100% based biventricular pacer, rate 60. ) Lab and/or radiology exams considered but not ordered:: None Interpretation Summary: Ordering Physician: Sudheer Baldwin MD Date of Service: 03/12/25 Procedure(s): XR ribs RT min 3V w CXR1V Accession Number(s): [id number] cc: Sudheer Baldwin MD; Glynn Mckenzie MD; Deshaun Riggs MD~ Examination: Ribs, right, with PA chest, 3 views Technique: Chest PA, RIBS AP, RPO, 3 views Exam date and time: March 12, 2025 0647 hours INDICATION: Patient fell 5 days ago with injury to the right chest, right rib pain Findings: Mild heart failure Mild thoracic cardiac contour. Prominent vascular congestion Cardiac leads satisfactory position Mild enlargement cardiac contour No pneumothorax Prominent osteopenia The rib films are overpenetrated and blurred by patient motion, fracture right eighth rib posterolaterally without displacement IMPRESSION: Limited study, indeterminate fracture right eighth rib posteriorly and Mild heart failure. No pneumothorax Dictated By:Deshaun Riggs MD Signed By:<Electronically signed by Deshaun Riggs MD in OV>03/12/25 0717 Ordering Physician: Sudheer Baldwin MD Date of Service: 03/12/25 Procedure(s): XR thoracic spine 2V Accession Number(s): [id number] cc: Sudheer Baldwin MD; Glynn Mckenzie MD; Deshaun Riggs MD~ Examination: Thoracic spine 2 views TECHNIQUE: AP lateral thoracic spine 2 views Date and time: March 12, 2025 0705 hours INDICATIONS: Patient fell 5 days ago with injury to the back, back pain FINDINGS: Prominent osteopenia No acute thoracic fracture Moderate thoracic spondylosis [id number] diffuse thoracic degenerative disc disease IMPRESSION: No acute thoracic fracture Dictated By:Deshaun Riggs MD Signed By:<Electronically signed by Deshaun Riggs MD in [place]>03/12/25 0718 Medications / Prescriptions Medications or Prescriptions considered but not ordered:: None Medication administrations:: Medication Administration History Discontinued Medications Hydrocodone Bitart/Acetaminophen (Hydrocodone/Apap 5/325 Tablet) 1 tab PO X1 ONE Stop: 03/12/25 06:42 Last Admin: 03/12/25 07:25 Dose: 1 tab Documented By: SARAH Ketorolac Tromethamine (Ketorolac Inj 30 Mg/Ml Vial) 30 mg IM X1 ONE Stop: 03/12/25 06:46 Last Admin: 03/12/25 07:25 Dose: 30 mg Documented By: SARAH See above Consultations Consultation(s) initiated? (list below): No Diagnosis Fall Differential Diagnosis: syncope and other (rib fracture, rib contusion ) Most likely diagnosis given after review of the tests above:: Right 8th posterior rib fracture DJD of T-spine Admission Indicated Admission indicated?: not indicated Admission Request Was there a request for admission?: No Disposition Plan Disposition Plan: Discharge Discharge Attestation Discharge Attestation: The patient and all family members were given an opportunity to ask questions and understood the discharge instructions. Discharge instructions specifically effects, indications for sooner follow up or return to the emergency department, and the expected course of current diagnosis. Patient condition: Stable Discharge Plan Plan Patient Disposition: HOME (Self Care) Prescriptions/Referrals Prescriptions/Med Rec: New hydrocodone-acetaminophen 5-325 mg tablet 1 tab PO Q8H MDD 3 PRN (Reason: pain) Qty: 20 0RF No Action Homa-Franci 0.8 mg tablet 1 tab PO QDAY amiodarone 200 mg tablet 200 mg PO BID nitroglycerin 0.3 mg tablet, sublingual 0.3 mg buccal Q5MIN MDD 3 pills within 15 minutes. PRN (Reason: chest pain) Qty: 15 0RF Rx Instructions: Place under tongue when chest pain starts. Can repeat dose in 5 minutes if pain does not improve with max total of 3 pills within 15 minutes. Do not mix with erectile dysfunction medicines. May cause low blood pressure and headaches. pramipexole 0.5 mg Tablet 0.5 mg PO BID albuterol sulfate 90 mcg/actuation Hfa Aerosol Inhaler 2 puff INHALATION QID PRN (Reason: sob) lactulose 10 gram/15 mL Solution 10 g PO QDAY atorvastatin 40 mg Tablet 40 mg PO QPM clopidogrel 75 mg Tablet 75 mg PO QDAY furosemide 20 mg Tablet 20 mg PO QDAY aspirin 81 mg Capsule 81 mg PO QDAY melatonin 10 mg Capsule 10 mg PO HS PRN (Reason: Insomnia) doxycycline hyclate 100 mg capsule 100 mg PO BID Qty: 10 0RF Referrals: Glynn Mckenzie MD [Primary Care Provider] - In 1 week Problem List Clinical Impression: Closed rib fracture, DJD (degenerative joint disease) of thoracic spine Patient/Caregiver Discharge Instructions Education Materials: ED Degenerative Disk Disease, ED Rib Fracture Additional Instructions: For pain, take both 1-2 Tylenol 500mg tablets every 6 hours AND 2 Advil Gel 200mg capsules every 6 hours. IF you need additional pain control, you can take the Sabine. Follow-up with your primary care doctor in 3 to 5 days for recheck. You can return to the emergency department sooner if symptoms worsen or if you notice any new, concerning issues. Print Language: Swedish Stand Alone Forms: [facility]abella Award Info., Patient Portal Info Letter
[2025-03-12 06:44] VITALS: PULSE 60
[2025-03-12] MEDS: HYDROcodone/APAP 5/325 TABLET 1 TAB PO (07:25)
[2025-03-12] MEDS: KETOROLAC INJ 30 MG/ML VIAL IM (07:25)
[2025-03-12 07:35] VITALS: BP 159/80; PULSE 60; RESP 16; TEMP 36.5; O2SAT 95
[2025-03-12 08:21] LABS: Basophils # (Auto) 0.1 Thou/mm3 (0.0-0.2); Basophils % (Auto) 1 % (0-2.5); Eosinophils # (Auto) 0.3 Thou/mm3 (0.0-0.5); Eosinophils % (Auto) 4 % (0-10); Hematocrit 32.5 % (41.0-53.0); Hemoglobin 10.9 g/dL (13.5-16.0); Immature Granulocytes % (Auto) 0 % (0-0); Immature Granulocytes Auto 0.02 Thou/mm3 (0.00-0.00); Lymphocytes # (Auto) 1.3 Thou/mm3 (1.0-4.8); Lymphocytes % (Auto) 18 % (10-50); Mean Corpuscular HGB Conc 33.5 g/dl (31.0-37.0); Mean Corpuscular Hemoglobin 33.3 pg (25.0-35.0); Mean Corpuscular Volume 99 fL (80-100); Monocytes # (Auto) 0.7 Thou/mm3 (0.0-0.8); Monocytes % (Auto) 10 % (0-12); Neutrophils # (Auto) 4.8 Thou/mm3 (1.8-7.7); Neutrophils % (Auto) 67 % (37-80); Nucleated Red Blood Cell % 0 /100 WBC (0); Platelet Count 159 Thou/mm3 (140-440); RDW Standard Deviation 59.7 fL (35.1-43.9); Red Blood Count 3.27 Miln/mm3 (4.50-5.90); White Blood Count 7.2 Thou/mm3 (3.8-10.6)
[2025-03-12 08:38] VITALS: BP 132/78; PULSE 60; RESP 14; O2SAT 95
[2025-03-12 08:57] LABS: Alanine Aminotransferase 18 U/L (10-49); Albumin, Serum 4.3 gm/dL (3.4-4.8); Albumin/Globulin Ratio 1.4 (1.2-2.2); Alkaline Phosphatase 194 U/L (46-116); Anion Gap 13 (7-16); Aspartate Amino Transferase 24 U/L (0-34); BUN/Creatinine Ratio 11 Ratio (12-20); Bilirubin,Total 0.3 mg/dL (0.3-1.2); Blood Urea Nitrogen 59 mg/dL (9-23); Carbon Dioxide 25.8 mMol/L (20.0-31.0); Chloride 97 mMol/L (98-107); Creatinine (Component) 5.3 mg/dL (0.6-1.3); Estimated Creatinine Clearance 15.4 mL/min (>60); Globulin 3.1 gm/dL (2.3-3.5); Glucose 145 mg/dL (74-106); Osmolality,Calculated 291 (275-295); Potassium 4.4 mMol/L (3.4-5.1); Sodium 136 mMol/L (136-145); Total Protein 7.4 gm/dL (5.7-8.2); eGFR 11 See Note
[2025-03-12 09:00] LABS: Partial Thromboplastin Time 30.8 Seconds (22.0-36.0); Prothrombin Time 11.4 Seconds (9.0-12.2)
== END 2025-03-12 08:34 | disposition home or self-care (01) ==
PROVIDERS: Emergency Provider Family Medicine; PCP Internal Medicine
DX: S22.31XA Fracture of one rib, right side, initial encounter for closed fracture (principal); M47.814 Spondylosis without myelopathy or radiculopathy, thoracic region; S29.9XXA Unspecified injury of thorax, initial encounter; W19.XXXA Unspecified fall, initial encounter; I50.20 Unspecified systolic (congestive) heart failure; Z95.5 Presence of coronary angioplasty implant and graft; I25.10 Atherosclerotic heart disease of native coronary artery without angina pectoris; Z95.0 Presence of cardiac pacemaker; E11.22 Type 2 diabetes mellitus with diabetic chronic kidney disease; N18.6 End stage renal disease; Z99.2 Dependence on renal dialysis; I13.2 Hypertensive heart and chronic kidney disease with heart failure and with stage 5 chronic kidney disease, or end stage renal disease; Z87.891 Personal history of nicotine dependence; I25.2 Old myocardial infarction; I48.91 Unspecified atrial fibrillation; Z79.02 Long term (current) use of antithrombotics/antiplatelets
CPT/HCPCS: 36415; 71101; 72070; 80053; 85025; 85610; 85730; 93005; 96372; 99283; J1885; A9270

== ENCOUNTER → 2025-04-24 | Outpatient (CLI) | payer OTHER, SELFPAY ==
--- NOTE | 2025-04-24 13:35 | XR_ITS ---
Examination: MRI lumbar spine without contrast Date and time of exam: April 24, 2025 1401 hours INDICATIONS: Low back pain several years worse the last 2 weeks Technique: Multiple MRI axial and sagittal sections lumbar spine. Sagittal T2-weighted images, TR 3500, TE 118 T1 weighted transverse sections, TR 688 T8.5, T2-weighted sagittal sections T1 weighted sagittal sections TR 621, TE 30 T2 axial sections, TR 4, 190, TE 84. Findings: Moderately severe compression fracture T12 with increased signal on the T2-weighted images consistent with subacute fracture Advanced disc narrowing L5-S1 Grade 1 anterolisthesis L4 on L5 Diffuse lumbar disc desiccation L5-S1 no disc protrusion L4-L5 no disc protrusion L3-L4 moderate overall spinal stenosis, primarily secondary to facet arthropathy and thickening of ligamenta flava with mild bilateral L3 ganglionic compression L2-L3 no disc protrusion L1-L2 no disc protrusion IMPRESSION: Recommend CT scan thoracic spine follow-up to confirm subacute moderately severe compression fracture T12 L3-L4 moderate overall spinal stenosis
--- NOTE | 2025-04-24 14:10 | PC.NURSE ---
patient scheduled for MRI spine lumbar and has pacemaker, will monitor patient during procedure
[2025-04-24 14:17] VITALS: PULSE 85; O2SAT 92
[2025-04-24 14:20] VITALS: BP 143/77; PULSE 86; RESP 16; O2SAT 92
[2025-04-24 14:25] VITALS: BP 152/85; PULSE 86; RESP 20; O2SAT 94
[2025-04-24 14:30] VITALS: BP 141/78; PULSE 86; RESP 16; O2SAT 93
[2025-04-24 14:35] VITALS: BP 141/79; PULSE 86; RESP 16; O2SAT 93
[2025-04-24 14:40] VITALS: BP 143/79; PULSE 86; RESP 16; O2SAT 93
--- NOTE | 2025-04-24 14:44 | PC.NURSE ---
MRI completed, patient tolerated procedure well
== END | disposition home or self-care (01) ==
PROVIDERS: PCP Internal Medicine; Referring Provider Internal Medicine; Visit Provider Internal Medicine
DX: M48.54XA Collapsed vertebra, not elsewhere classified, thoracic region, initial encounter for fracture (principal); M48.061 Spinal stenosis, lumbar region without neurogenic claudication
CPT/HCPCS: 72148

== ENCOUNTER 2025-04-25 06:19 | Emergency (ER) | payer OTHER, SELFPAY ==
[2025-04-25 06:20] VITALS: BMI 29.8
[2025-04-25 06:33] VITALS: BP 181/80; PULSE 60; RESP 18; TEMP 36.4; O2SAT 95
--- NOTE | 2025-04-25 06:42 | XR_ITS ---
Examination: CT abdomen and pelvis without contrast. Coronal 3-D reconstructions. Sagittal 2-D reconstructions. Date and time of exam:April 25, 2025, 0749 hours INDICATIONS: Onset mid abdominal pain beginning 2 days ago, history solid mass medial to the distal femur and knee on CT examination October 04, 2024 CTDI: vol (mGy): 11 DLP: (mGycm): 731 Technique: Axial images of the abdomen have been obtained, 3 mm slice thickness Intravenous contrast material has not been administered. Low dose protocols were performed. One or more of the following dose reduction techniques were used; automated exposure control, adjustment of the mA and/or KV according to patient size, use of iterative reconstruction technique. Findings: No focal liver or splenic lesions Distended gallbladder No pancreatic mass No renal or ureteral calculi Aorta normal size Large amounts of stool throughout the colon 27 mm fat-containing umbilical hernia Normal appendix Rectal wall thickening axial images 226 Intact urinary bladder Mild prostatomegaly Transpedicular lumbar stabilization L4-S1 Acute compression fracture T12 Hips intact IMPRESSION: Distended gallbladder, recommend hepatobiliary sonography follow-up Large amounts of stool throughout the entire colon Rectal wall thickening, recommend direct inspection to exclude rectal tumor Acute subacute compression fracture T12, please see the CT thoracic spine report
--- NOTE | 2025-04-25 06:42 | XR_ITS ---
Examination: CT thoracic spine, without contrast. 2-D sagittal reconstructions. 2-D coronal reconstructions. 3-D reconstructions. Date and time of exam:April 25, 2025, 0747 hours, comparison MRI lumbar spine April 24, 2025 INDICATIONS: Patient fell last month with injury to the back, mid back pain CTDI: vol (mGy):33.1 DLP: (mGycm):1222 Technique: Multiple 1.25 mm axial sections of the thoracic spine without intravenous contrast have been obtained. 2-D sagittal and coronal reconstructions have been obtained. 3-D reconstructions have been obtained. Low dose protocols were performed. One or more of the following dose reduction techniques were used; automated exposure control, adjustment of the mA and/or KV according to patient size, use of iterative reconstruction technique. Findings: Severe osteopenia Acute/subacute moderately severe compression fracture T12 vertebral body, depression superior endplate, reduction in height 40% Retropulsion of the posterior superior margin of this vertebral body 3 mm Pedicles appear intact Subacute fractures right eighth and ninth and 10th ribs posteriorly IMPRESSION: Acute/subacute moderately severe compression fracture T12 as above Nondisplaced subacute fractures right eighth, ninth, 10th ribs posteriorly
--- NOTE | 2025-04-25 06:43 | PD.EDRME ---
Rapid Medical Screening Exam RME Arrival date/time: 04/25/25 06:19 74-year-old male presents to the emergency department today for complaints of back pain and abdominal pain Chief Complaint: Abdominal Pain Time Seen by Provider: 04/25/25 06:24 Vital signs: Vital Signs Temperature 97.6 F 04/25/25 06:33 Pulse Rate 60 04/25/25 06:33 Respiratory Rate 18 04/25/25 06:33 Blood Pressure 181/80 H 04/25/25 06:33 Pulse Oximetry (%) 95 04/25/25 06:33 Oxygen Delivery Method Room Air 04/25/25 06:33
[2025-04-25 07:37] LABS: Basophils # (Auto) 0.1 Thou/mm3 (0.0-0.2); Basophils % (Auto) 2 % (0-2.5); Eosinophils # (Auto) 0.3 Thou/mm3 (0.0-0.5); Eosinophils % (Auto) 5 % (0-10); Hematocrit 34.7 % (41.0-53.0); Hemoglobin 11.6 g/dL (13.5-16.0); Immature Granulocytes Auto 0.01 Thou/mm3 (0.00-0.00); Lymphocytes # (Auto) 0.6 Thou/mm3 (1.0-4.8); Lymphocytes % (Auto) 9 % (10-50); Mean Corpuscular HGB Conc 33.4 g/dl (31.0-37.0); Mean Corpuscular Hemoglobin 34.4 pg (25.0-35.0); Mean Corpuscular Volume 103 fL (80-100); Monocytes # (Auto) 0.8 Thou/mm3 (0.0-0.8); Monocytes % (Auto) 12 % (0-12); Neutrophils # (Auto) 4.7 Thou/mm3 (1.8-7.7); Neutrophils % (Auto) 73 % (37-80); Nucleated Red Blood Cell # 0.00 Thou/mm3 (0.00-0.00); Nucleated Red Blood Cell % 0 /100 WBC (0); Platelet Count 171 Thou/mm3 (140-440); RDW Standard Deviation 54.4 fL (35.1-43.9); Red Blood Count 3.37 Miln/mm3 (4.50-5.90); White Blood Count 6.5 Thou/mm3 (3.8-10.6)
--- NOTE | 2025-04-25 07:37 | PD.EDABDPN ---
ED Abdominal Pain RME/HPI General Chief Complaint: Abdominal Pain Stated complaint: ABD PAIN, CONSTIPATION Time seen by provider: 04/25/25 06:24 Arrival date/time: 04/25/25 06:19 RME / HPI RME / HPI narrative: 04/25/25 06:19 74-year-old male presents to the emergency department today for complaints of back pain and abdominal pain DR. SHIELDS MAIN ED EVALUATION 74 year old male with history of HFrEF (35-40% 08/2024), CAD s/p stents, atrial flutter, s/p pacemaker placement, on Plavix, hypertension, diabetes, ESRD on HD T//Thu, multiple spinal fusions presents to the ED for evaluation of abdominal pain beginning last night. Described as aching in sensation located throughout, rating as moderate. Accompanied by constipation which he attributes to the narcotic pain medication he is on. Additionally complains of back pain. However, states the back pain is intermittent over the last 2 years and unchanged. Denies any numbness or lower extremity weakness. Patient adds he had an MRI performed yesterday for the back pain and is pending results. Related Data Home Medications ?Medication ?Instructions ?Recorded ?Confirmed amiodarone 200 mg tablet 200 mg PO BID 07/13/23 09/15/24 vitamin B complex-vitamin C-folic 1 tab PO QDAY 07/13/23 09/15/24 acid 0.8 mg tablet (Homa-Franci) albuterol sulfate 90 mcg/actuation 2 puff inhalation QID PRN sob 09/07/24 09/15/24 aerosol inhaler pramipexole 0.5 mg tablet 0.5 mg PO BID 09/07/24 09/15/24 aspirin 81 mg capsule 81 mg PO QDAY 09/15/24 09/15/24 atorvastatin 40 mg tablet 40 mg PO QPM 09/15/24 09/15/24 clopidogrel 75 mg tablet 75 mg PO QDAY 09/15/24 09/15/24 furosemide 20 mg tablet 20 mg PO QDAY 09/15/24 09/15/24 lactulose 10 gram/15 mL oral 10 g PO QDAY 09/15/24 09/15/24 solution melatonin 10 mg capsule 10 mg PO HS PRN Insomnia 09/15/24 09/15/24 Previous Rx's ?Medication ?Instructions ?Recorded nitroglycerin 0.3 mg sublingual 0.3 mg buccal Q5MIN PRN chest pain 07/26/24 tablet #15 tabs doxycycline hyclate 100 mg capsule 100 mg PO BID #10 caps 10/08/24 hydrocodone 5 mg-acetaminophen 325 1 tab PO Q8H PRN pain #20 tabs 03/12/25 mg tablet Allergies Allergy/AdvReac Type Severity Reaction Status Date / Time No Known Allergies Allergy Verified 04/25/25 06:23 Review of Systems Review of Systems Systems Reviewed: All systems reviewed, normal except as documented Past Medical History Past Medical History CARDIAC: Positive Cardiac Disorders, Myocardial Infarction, Cardiac Arrhythmia, Atrial Fibrillation, Angina, Congestive Heart Failure and Hypertension RESPIRATORY: Positive Asthma and Pneumonia GASTROINTESTINAL: Positive Gastrointestinal Disorders and Obesity GENITOURINARY: Positive Genitourinary Disorders, Renal Disease, Dialysis and Benign Prostatic Hyperplasia MUSCULOSKELETAL: Positive Musculoskeletal Disorders, Arthritis and Degenerative Joint Disease ENT: Positive Cataracts and Deafness ENDOCRINE: Positive Endocrine Disorders and Diabetes Mellitus Type 2 HEMATOLOGIC: Positive Blood Disorders and Anemia PSYCHO/SOCIAL: Positive Depression and Anxiety OTHER HISTORY: Positive Hospitalization, Shingles, Chicken Pox and Measles Family History FAMILY HISTORY: Positive Family Cardiac Disorders Surgical History SURGICAL: Positive Coronary Stent, Pacemaker, Angiogram, Joint Replacement and Arthroscopy; Negative Cardiac Surgery Social History SMOKING STATUS: Never smoker SECOND HAND EXPOSURE: No SUBSTANCE USE: marijuana ED Exam Narrative Physical exam: GENERAL APPEARANCE: alert and oriented x 4, well-developed, well-nourished, no acute distress HEENT: Normocephalic, atraumatic; pupils equal, round, reactive to light; EOMI; mucous membranes pink, moist; oropharynx clear NECK: Supple LUNGS: CTABL; no wheezes, no rales, no rhonchi HEART: Regular rate, regular rhythm; normal S1, S2; no murmurs ABDOMEN: non distended; normal BS; soft, no tenderness, no guarding, no rebound; no masses, no organomegaly, no hernia BACK: mid back tenderness to palpation; no CVA tenderness EXTREMITIES: atraumatic; no edema NEUROLOGIC: awake; alert and oriented x4; cranial nerves II-XII grossly intact; no focal sensory or motor deficits PSYCHIATRIC: appropriate mood and affect SKIN: warm, dry, normal color; no rashes Course Quality Measures none Orders Category Date Time Status CT abdomen pelvis wo con Stat Exams 04/25/25 06:[address] thoracic spine wo con Stat Exams 04/25/25 06:42 Completed CBC Stat Lab 04/25/25 07:30 Completed Comprehensive Metabolic Panel Stat Lab 04/25/25 07:30 Completed Lipase Stat Lab 04/25/25 07:30 Completed HYDROmorphone INJ [Dilaudid Inj] Med 04/25/25 09:39 Discontinued 1 mg IVP X1 ONE Lidocaine 5% Patch Med 04/25/25 09:39 Discontinued 1 patch TOP X1 ONE Morphine Inj Med 04/25/25 08:09 Discontinued 5 mg IVP X1 ONE Ondansetron Inj [Zofran Inj] Med 04/25/25 08:09 Discontinued 4 mg IVP X1 ONE Reevaluation(s) Reevaluation #1: We reviewed all the results, analysis, and treatment plans. Reports he has miraLAX at home that his PCP has prescribed him which he will try. Patient complains of severe mid to lower back pain, will order additional dose of Dilaudid and a lidocaine patch. Patient is amenable to discharge. Strict return precautions were outlined. Patient was discharged in stable condition. Time: 09:35 Vital Signs Vital signs: Vital Signs Temperature 97.6 F 04/25/25 06:33 Pulse Rate 60 04/25/25 06:33 Respiratory Rate 18 04/25/25 06:33 Blood Pressure 181/80 H 04/25/25 06:33 Pulse Oximetry (%) 95 04/25/25 06:33 Oxygen Delivery Method Room Air 04/25/25 06:33 Pulse ox is 95% on room air which is adequate. Abdominal Pain MDM MDM Narrative MDM Narrative:: Debi Johnston am scribing for and in the presence of Dr. Shields. Patient data External records reviewed:: [facility] previous records (I reviewed admission 10/04/2024 through 10/08/2024 for acute respiratory failure with hypoxia ) Clinical information provided by:: patient Social determinants that could affect healthcare access:: none Patient has the following chronic illnesses:: HFrEF (35-40% 08/2024), CAD s/p stents, atrial flutter, s/p pacemaker placement, on Plavix, hypertension, diabetes, ESRD on HD T/Th/Sat, multiple spinal fusions How is presenting disease/condition affected by chronic disease/condition?: exacerbated by Evaluation data The following diagnostics were reviewed and interpreted by me:: lab results and radiology exam(s) Lab and/or radiology exams considered but not ordered:: None Interpretation Summary: Ordering Physician: Sayra VERA)Edgardo NP Date of Service: 04/25/25 Procedure(s): CT abdomen pelvis wo con Accession Number(s): [id number] cc: Edgardo Colbert NP, NP; Glynn Mckenzie MD; Deshaun Riggs MD~ Examination: CT abdomen and pelvis without contrast. Coronal 3-D reconstructions. Sagittal 2-D reconstructions. Date and time of exam:April 25, 2025, 0749 hours INDICATIONS: Onset mid abdominal pain beginning 2 days ago, history solid mass medial to the distal femur and knee on CT examination October 04, 2024 CTDI: vol (mGy): 11 DLP: (mGycm): 731 Technique: Axial images of the abdomen have been obtained, 3 mm slice thickness Intravenous contrast material has not been administered. Low dose protocols were performed. One or more of the following dose reduction techniques were used; automated exposure control, adjustment of the mA and/or KV according to patient size, use of iterative reconstruction technique. Findings: No focal liver or splenic lesions Distended gallbladder No pancreatic mass No renal or ureteral calculi Aorta normal size Large amounts of stool throughout the colon 27 mm fat-containing umbilical hernia Normal appendix Rectal wall thickening axial images 226 Intact urinary bladder Mild prostatomegaly Transpedicular lumbar stabilization L4-S1 Acute compression fracture T12 Hips intact IMPRESSION: Distended gallbladder, recommend hepatobiliary sonography follow-up Large amounts of stool throughout the entire colon Rectal wall thickening, recommend direct inspection to exclude rectal tumor Acute subacute compression fracture T12, please see the CT thoracic spine report Dictated By: Deshaun Riggs MD Signed By: <Electronically signed by Deshaun Riggs MD in OV> 04/25/25 0818 Ordering Physician: Sayra VERA)Edgardo NP Date of Service: 04/25/25 Procedure(s): CT thoracic spine wo con Accession Number(s): [id number] cc: Sayra DENTON,Edgardo DENTON; Glynn Mckenzie MD; Deshaun Riggs MD~ Examination: CT thoracic spine, without contrast. 2-D sagittal reconstructions. 2-D coronal reconstructions. 3-D reconstructions. Date and time of exam:April 25, 2025, 0747 hours, comparison MRI lumbar spine April 24, 2025 INDICATIONS: Patient fell last month with injury to the back, mid back pain CTDI: vol (mGy):33.1 DLP: (mGycm):1222 Technique: Multiple 1.25 mm axial sections of the thoracic spine without intravenous contrast have been obtained. 2-D sagittal and coronal reconstructions have been obtained. 3-D reconstructions have been obtained. Low dose protocols were performed. One or more of the following dose reduction techniques were used; automated exposure control, adjustment of the mA and/or KV according to patient size, use of iterative reconstruction technique. Findings: Severe osteopenia Acute/subacute moderately severe compression fracture T12 vertebral body, depression superior endplate, reduction in height 40% Retropulsion of the posterior superior margin of this vertebral body 3 mm Pedicles appear intact Subacute fractures right eighth and ninth and 10th ribs posteriorly IMPRESSION: Acute/subacute moderately severe compression fracture T12 as above Nondisplaced subacute fractures right eighth, ninth, 10th ribs posteriorly Dictated By: Deshaun Riggs MD Signed By: <Electronically signed by Deshaun Riggs MD in OV> 04/25/25 0814 Medications / Prescriptions Medications or Prescriptions considered but not ordered:: None Medication administrations:: Medication Administration History Discontinued Medications Hydromorphone HCl (Hydromorphone Inj 2 Mg/Ml Vial) 1 mg IVP X1 ONE Stop: 04/25/25 09:40 Lidocaine (Lidocaine 5% 1 Patch) 1 patch TOP X1 ONE Stop: 04/25/25 09:40 Morphine Sulfate (Morphine Sulf Inj 10 Mg/Ml Vial) 5 mg IVP X1 ONE Stop: 04/25/25 08:10 Last Admin: 04/25/25 08:36 Dose: 5 mg Documented By: AKASH Ondansetron HCl (Ondansetron Inj 2 Mg/Ml Inj 2 Ml) 4 mg IVP X1 ONE Stop: 04/25/25 08:10 Last Admin: 04/25/25 08:35 Dose: 4 mg Documented By: AKASH See above Consultations Consultation(s) initiated? (list below): No Diagnosis Differential diagnosis abdominal pain: abdominal pain, calculus of kidney, constipation and other (chronic pain, back pain ) Most likely diagnosis given after review of the tests above:: T12 compression fracture Admission Indicated Admission indicated?: not indicated Admission Request Was there a request for admission?: No Disposition Plan Disposition Plan: Discharge Discharge Attestation Discharge Attestation: The patient and all family members were given an opportunity to ask questions and understood the discharge instructions. Discharge instructions specifically effects, indications for sooner follow up or return to the emergency department, and the expected course of current diagnosis. Patient condition: Stable Discharge Plan Plan Patient Disposition: HOME (Self Care) Prescriptions/Referrals Prescriptions/Med Rec: No Action Homa-Franci 0.8 mg tablet 1 tab PO QDAY amiodarone 200 mg tablet 200 mg PO BID nitroglycerin 0.3 mg tablet, sublingual 0.3 mg buccal Q5MIN MDD 3 pills within 15 minutes. PRN (Reason: chest pain) Qty: 15 0RF Rx Instructions: Place under tongue when chest pain starts. Can repeat dose in 5 minutes if pain does not improve with max total of 3 pills within 15 minutes. Do not mix with erectile dysfunction medicines. May cause low blood pressure and headaches. pramipexole 0.5 mg Tablet 0.5 mg PO BID albuterol sulfate 90 mcg/actuation Hfa Aerosol Inhaler 2 puff INHALATION QID PRN (Reason: sob) lactulose 10 gram/15 mL Solution 10 g PO QDAY atorvastatin 40 mg Tablet 40 mg PO QPM clopidogrel 75 mg Tablet 75 mg PO QDAY furosemide 20 mg Tablet 20 mg PO QDAY aspirin 81 mg Capsule 81 mg PO QDAY melatonin 10 mg Capsule 10 mg PO HS PRN (Reason: Insomnia) hydrocodone-acetaminophen 5-325 mg tablet 1 tab PO Q8H MDD 3 PRN (Reason: pain) Qty: 20 0RF doxycycline hyclate 100 mg capsule 100 mg PO BID Qty: 10 0RF Referrals: Glynn Mckenzie MD [Primary Care Provider] - In 1 week Problem List Clinical Impression: T12 compression fracture Patient/Caregiver Discharge Instructions Education Materials: ED Fracture, Vertebral Compression Additional Instructions: Follow up with your primary care doctor for further management. Consider a TLSO brace. Print Language: Spanish Stand Alone Forms: Annabella Award Info., Patient Portal Info Letter
[2025-04-25 07:55] LABS: Alanine Aminotransferase 16 U/L (10-49); Albumin, Serum 4.2 gm/dL (3.4-4.8); Albumin/Globulin Ratio 1.2 (1.2-2.2); Alkaline Phosphatase 142 U/L (46-116); Anion Gap 12 (7-16); Aspartate Amino Transferase 26 U/L (0-34); BUN/Creatinine Ratio 10 Ratio (12-20); Bilirubin,Total 0.5 mg/dL (0.3-1.2); Blood Urea Nitrogen 51 mg/dL (9-23); Calcium 9.0 mg/dL (8.3-10.6); Calcium (Corrected) 9.0 mg/dL (8.5-10.1); Carbon Dioxide 26.3 mMol/L (20.0-31.0); Chloride 100 mMol/L (98-107); Creatinine (Component) 5.3 mg/dL (0.6-1.3); Estimated Creatinine Clearance 15.4 mL/min (>60); Globulin 3.4 gm/dL (2.3-3.5); Glucose 137 mg/dL (74-106); Lipase 23 U/L (12-53); Osmolality,Calculated 291 (275-295); Potassium 3.9 mMol/L (3.4-5.1); Sodium 138 mMol/L (136-145); Total Protein 7.6 gm/dL (5.7-8.2); eGFR 11 See Note
[2025-04-25 08:28] VITALS: BP 163/76; PULSE 60; RESP 18; TEMP 36.4; O2SAT 97
[2025-04-25] MEDS: ONDANSETRON INJ 2 MG/ML INJ 2 ML 4 MG IVP (08:35)
[2025-04-25] MEDS: MORPHINE SULF INJ 10 MG/ML VIAL 5 MG IVP (08:36)
[2025-04-25] MEDS: HYDROmorphone INJ 2 MG/ML VIAL 1 MG IVP (09:58)
[2025-04-25] MEDS: LIDOCAINE 5% 1 PATCH TOP (09:58)
[2025-04-25 10:07] VITALS: BP 184/72; PULSE 60; RESP 16; TEMP 36.6; O2SAT 95
== END 2025-04-25 11:05 | disposition home or self-care (01) ==
PROVIDERS: Nurse Practitioner Primary Care; Emergency Provider Emergency Medicine; PCP Internal Medicine
DX: S22.089A Unspecified fracture of T11-T12 vertebra, initial encounter for closed fracture (principal); S22.41XA Multiple fractures of ribs, right side, initial encounter for closed fracture; K82.8 Other specified diseases of gallbladder; K59.00 Constipation, unspecified; K62.89 Other specified diseases of anus and rectum
CPT/HCPCS: 36415; 72128; 74176; 80053; 83690; 85025; 96374; 96375; 99283; J1171; J2270; J2405; J3490

== ENCOUNTER → 2025-07-17 | Outpatient (CLI) | payer OTHER, SELFPAY ==
--- NOTE | 2025-07-17 14:23 | XR_ITS ---
EXAMINATION: Cervical spine 3 views TECHNIQUE: AP, lateral x2, 3 views Date and time: July 17, 2025, 1448 hours INDICATIONS: Neck pain 2 months, history of cervical fracture FINDINGS: Severely limited study The patient's shoulders overlie the cervical spine with no diagnostic visualization C5, C6-C7 Soft tissue left carotid calcification IMPRESSION: Severely limited study Consider CT scan cervical spine without contrast follow-up
== END | disposition home or self-care (01) ==
DX: M54.2 Cervicalgia (principal)
CPT/HCPCS: 72040

== ENCOUNTER → 2025-07-18 | Outpatient (CLI) | payer OTHER, SELFPAY ==
--- NOTE | 2025-07-18 17:00 | XR_ITS ---
Examination: CT thoracic spine, without contrast. 2-D sagittal reconstructions. 2-D coronal reconstructions. 3-D reconstructions. Date and time of exam: July 18, 2025, 1658 hours INDICATIONS: Back pain for months, compression fractures T12 CT thoracic spine April 25, 2025 CTDI: vol (mGy): 39.6 DLP: (mGycm): 1771 Technique: Multiple 1.25 mm axial sections of the thoracic spine without intravenous contrast have been obtained. 2-D sagittal and coronal reconstructions have been obtained. 3-D reconstructions have been obtained. Low dose protocols were performed. One or more of the following dose reduction techniques were used; automated exposure control, adjustment of the mA and/or KV according to patient size, use of iterative reconstruction technique. Findings: Severe osteopenia Worsening compression, now severe involving T12 vertebral body, reduction in height 80% Retropulsion posterior superior margin of this vertebral body 4 mm Healing posterior right eighth ninth and 10th rib fractures again noted No new fractures IMPRESSION: Worsening compression fracture, now severe involving T12 vertebral body, reduction in 80% Retropulsion of the posterior superior margin of this vertebral body 4 mm, consider MRI thoracic spine without contrast follow-up to assess for thoracic cord compression
== END | disposition home or self-care (01) ==
LOC: CCTX 16:29
PROVIDERS: PCP Internal Medicine
DX: S22.088A Other fracture of T11-T12 vertebra, initial encounter for closed fracture (principal); X58.XXXA Exposure to other specified factors, initial encounter
CPT/HCPCS: 72128

== ENCOUNTER 2025-07-24 12:58 | Emergency (ER) | payer OTHER, SELFPAY ==
--- NOTE | 2025-07-24 | XR_ITS ---
Examination: MRI thoracic spine without contrast. Date and time of exam: July 24, 2025, 1858 hours INDICATIONS: CT thoracic spine July 18, 2025 worsening severe compression fracture T12 with retropulsion of the posterior superior margin of this vertebral body 4 mm, patient complains of worsening back pain this month Technique: Multiple sagittal and axial images of the thoracic spine have been obtained. T1 weighted localizer, sagittal T2 weighted images, TR 30-50, TE 148, T1 weighted sagittal images, TR 650, TE 14, T2-weighted transverse images, TR 6770, TE 142 Findings: Severe compression fracture T12, reduction in height 80% plus Retropulsion of the posterior superior margin of this vertebral body 4 mm but no impingement upon the thoracic cord Diffuse thoracic disc narrowing, mild to moderate Diffuse thoracic disc desiccation No focal thoracic disc protrusions impinging upon the thoracic cord Atrophic thoracic cord, no syrinx cavity Impression: Severe partially subacute compression fracture T12 vertebral body, reduction in height 80% plus Retropulsion of the posterior superior margin of this vertebral body 4 mm but no impingement upon the thoracic cord
[2025-07-24 12:59] VITALS: BMI 32.5
[2025-07-24 13:16] VITALS: BP 163/79; PULSE 73; RESP 20; TEMP 36.6; O2SAT 95
--- NOTE | 2025-07-24 13:21 | EDRME_ITS ---
Rapid Medical Screening Exam [facility] Arrival date/time: 07/24/25 12:58 75-year-old male with a history of hyperlipidemia, end-stage renal failure, hypothyroidism, A-fib presents to the emergency room with a chief complaint of thoracic back pain. Patient was sent to the emergency room by his primary care provider after a CT of his thoracic spine showed a worsening compression fracture I have greeted and performed a focused initial assessment of this patient. A comprehensive ED assessment and evaluation of the patient, analysis of all test results, and completion of the medical decision making process will be conducted by additional ED providers. Chief Complaint: Back Pain/Injury Time Seen by Provider: 07/24/25 13:13 Vital signs: Vital Signs Temperature 97.8 F 07/24/25 13:16 Pulse Rate 73 07/24/25 13:16 Respiratory Rate 20 07/24/25 13:16 Blood Pressure 163/79 H 07/24/25 13:16 Pulse Oximetry (%) 95 07/24/25 13:16 Oxygen Delivery Method Room Air 07/24/25 13:16 Vital signs reviewed by provider: Yes Exam: Tenderness and pain to the thoracic area of the patient's spine Clear bilateral lung sounds. Strong and regular rhythm Clinical Impression: Thoracic cord compression/compression fracture/
[2025-07-24] MEDS: KETOROLAC INJ 60 MG/2 ML VIAL 30 MG IM (13:25)
[2025-07-24 14:29] LABS: Basophils # (Auto) 0.1 Thou/mm3 (0.0-0.2); Basophils % (Auto) 1 % (0-2.5); Eosinophils # (Auto) 0.5 Thou/mm3 (0.0-0.5); Eosinophils % (Auto) 7 % (0-10); Hematocrit 33.3 % (41.0-53.0); Hemoglobin 11.0 g/dL (13.5-16.0); Immature Granulocytes Auto 0.02 Thou/mm3 (0.00-0.00); Lymphocytes # (Auto) 1.3 Thou/mm3 (1.0-4.8); Lymphocytes % (Auto) 19 % (10-50); Mean Corpuscular HGB Conc 33.0 g/dl (31.0-37.0); Mean Corpuscular Hemoglobin 35.1 pg (25.0-35.0); Mean Corpuscular Volume 106 fL (80-100); Monocytes # (Auto) 0.6 Thou/mm3 (0.0-0.8); Monocytes % (Auto) 9 % (0-12); Neutrophils # (Auto) 4.4 Thou/mm3 (1.8-7.7); Neutrophils % (Auto) 64 % (37-80); Nucleated Red Blood Cell # 0.00 Thou/mm3 (0.00-0.00); Nucleated Red Blood Cell % 0 /100 WBC (0); Platelet Count 174 Thou/mm3 (140-440); RDW Standard Deviation 59.7 fL (35.1-43.9); Red Blood Count 3.13 Miln/mm3 (4.50-5.90); White Blood Count 6.8 Thou/mm3 (3.8-10.6)
[2025-07-24 14:42] LABS: INR 1.0 (0.9-1.3); Partial Thromboplastin Time 29.9 Seconds (22.0-36.0); Prothrombin Time 10.6 Seconds (9.0-12.2)
[2025-07-24 14:43] LABS: Alanine Aminotransferase 18 U/L (10-49); Albumin, Serum 4.6 gm/dL (3.4-4.8); Albumin/Globulin Ratio 1.7 (1.2-2.2); Alkaline Phosphatase 199 U/L (46-116); Anion Gap 13 (7-16); Aspartate Amino Transferase 36 U/L (0-34); BUN/Creatinine Ratio 13 Ratio (12-20); Bilirubin,Total 0.3 mg/dL (0.3-1.2); Blood Urea Nitrogen 70 mg/dL (9-23); Calcium 9.1 mg/dL (8.3-10.6); Calcium (Corrected) 9.1 mg/dL (8.5-10.1); Carbon Dioxide 27.8 mMol/L (20.0-31.0); Chloride 100 mMol/L (98-107); Creatinine (Component) 5.6 mg/dL (0.6-1.3); Estimated Creatinine Clearance 15.0 mL/min (>60); Globulin 2.7 gm/dL (2.3-3.5); Glucose 165 mg/dL (74-106); Osmolality,Calculated 305 (275-295); Potassium 4.7 mMol/L (3.4-5.1); Sodium 141 mMol/L (136-145); Total Protein 7.3 gm/dL (5.7-8.2); eGFR 10 See Note
[2025-07-24 19:26] VITALS: BP 143/87; PULSE 86; RESP 18; O2SAT 93
--- NOTE | 2025-07-24 19:29 | PC.NURSE ---
with pt @ MRI for monitoring v/s documented within normal. will continue to monitor
[2025-07-24 19:41] VITALS: BP 129/77; PULSE 85; RESP 14; O2SAT 95
[2025-07-24 20:19] VITALS: BP 144/78; PULSE 60; RESP 18; TEMP 36.6; O2SAT 93
--- NOTE | 2025-07-24 20:25 | PD.EDADULT ---
ED General RME/HPI General Chief complaint: Back Pain/Injury Stated complaint: COMPRESSION FX, NEEDS MRI Time Seen by Provider: 07/24/25 13:13 Arrival date/time: 07/24/25 12:58 CC: Persistent mid back pain HPI patient fell several months ago resulting in a T12 fracture, patient had a CT done outpatient which showed there is been increased in the compression of the compression fracture at T12. Patient was sent here by PCP for MRI. Patient denies any bowel or bladder symptoms saddle anesthesia numbness tingling weakness in the lower extremities. Patient is a dialysis patient Thursday and Thursday referral clerk is Dr. Azevedo. Patient is awake alert oriented nontoxic-appearing states after the shot his pain is the best it has been in months. Patient has no other complaints. RME / HPI RME / HPI narrative: 07/24/25 12:58 75-year-old male with a history of hyperlipidemia, end-stage renal failure, hypothyroidism, A-fib presents to the emergency room with a chief complaint of thoracic back pain. Patient was sent to the emergency room by his primary care provider after a CT of his thoracic spine showed a worsening compression fracture I have greeted and performed a focused initial assessment of this patient. A comprehensive ED assessment and evaluation of the patient, analysis of all test results, and completion of the medical decision making process will be conducted by additional ED providers. Exam: Tenderness and pain to the thoracic area of the patient's spine Clear bilateral lung sounds. Strong and regular rhythm Impression: Thoracic cord compression/compression fracture/ Related Data Home Medications ?Medication ?Instructions ?Recorded ?Confirmed amiodarone 200 mg tablet 200 mg PO BID 07/13/23 09/15/24 vitamin B complex-vitamin C-folic 1 tab PO QDAY 07/13/23 09/15/24 acid 0.8 mg tablet (Homa-Franci) albuterol sulfate 90 mcg/actuation 2 puff inhalation QID PRN sob 09/07/24 09/15/24 aerosol inhaler pramipexole 0.5 mg tablet 0.5 mg PO BID 09/07/24 09/15/24 aspirin 81 mg capsule 81 mg PO QDAY 09/15/24 09/15/24 atorvastatin 40 mg tablet 40 mg PO QPM 09/15/24 09/15/24 clopidogrel 75 mg tablet 75 mg PO QDAY 09/15/24 09/15/24 furosemide 20 mg tablet 20 mg PO QDAY 09/15/24 09/15/24 lactulose 10 gram/15 mL oral 10 g PO QDAY 09/15/24 09/15/24 solution melatonin 10 mg capsule 10 mg PO HS PRN Insomnia 09/15/24 09/15/24 Previous Rx's ?Medication ?Instructions ?Recorded nitroglycerin 0.3 mg sublingual 0.3 mg buccal Q5MIN PRN chest pain 07/26/24 tablet #15 tabs doxycycline hyclate 100 mg capsule 100 mg PO BID #10 caps 10/08/24 hydrocodone 5 mg-acetaminophen 325 1 tab PO Q8H PRN pain #20 tabs 03/12/25 mg tablet Allergies Allergy/AdvReac Type Severity Reaction Status Date / Time No Known Allergies Allergy Verified 07/24/25 13:02 Review of Systems Review of Systems Narrative Review of Systems: GEN: No fever, no chills, no weight loss EYES: No discharge, no visual changes, no pain HEENT: No ear pain, no congestion, no sore throat PULM: No shortness of breath, no cough, no congestion CV: No chest pain, no dyspnea on exertion, no palpitations GI: No nausea, no vomiting, no diarrhea, no pain, no constipation : No frequency, no urgency, no dysuria MUSC/SKEL: No joint pain, + back pain SKIN: No rash PSYCH: No hallucinations, no depression HEME/LYMPH: No easy bleeding or bruising tendencies NEURO: No weakness, no headache Past Medical History Past Medical History NEUROLOGIC: Negative Neurological Disorders or Seizures CARDIAC: Positive Cardiac Disorders, Myocardial Infarction (2023), Cardiac Arrhythmia, Atrial Fibrillation, Angina, Congestive Heart Failure and Hypertension RESPIRATORY: Positive Respiratory Disorders, Chronic Obstructive Pulmonary Disease (COPD), Asthma and Pneumonia GASTROINTESTINAL: Positive Gastrointestinal Disorders and Obesity; Negative Gastroesophageal Reflux Disease GENITOURINARY: Positive Genitourinary Disorders, Renal Disease, Dialysis and Benign Prostatic Hyperplasia MUSCULOSKELETAL: Positive Musculoskeletal Disorders, Arthritis and Degenerative Joint Disease ENT: Positive Cataracts and Deafness ENDOCRINE: Positive Endocrine Disorders and Diabetes Mellitus Type 2; Negative Diabetes Mellitus Type 1 HEMATOLOGIC: Positive Blood Disorders and Anemia; Negative Sickle Cell Disease PSYCHO/SOCIAL: Positive Depression and Anxiety OTHER HISTORY: Positive Hospitalization, Shingles, Chicken Pox and Measles; Negative Autoimmune Disease, Down Syndrome, Developmental Delay, Falls, Blood Transfusions, Blood Transfusion Reaction, Anesthesia Reactions, Mumps or Cancer Family History FAMILY HISTORY: Positive Family Cardiac Disorders; Negative Family Psychiatric Problems, Family Respiratory Disorders, Family Gastrointestinal Problems, Family Cancer, Family Surgery or Family Anesthesia Reaction Surgical History SURGICAL: Positive Cardiac Surgery, Coronary Stent, Pacemaker, Angiogram, Joint Replacement and Arthroscopy; Negative Abdominal Surgery Social History SMOKING STATUS: Never smoker SECOND HAND EXPOSURE: No SUBSTANCE USE: marijuana ED Exam Narrative Physical exam: [General: Obese not in any acute distress Head normocephalic HEENT: Within acceptable limits Neck is supple nontender Chest equal chest rise nontender to palpation Respiratory: Clear to auscultation no wheezes crackles or rubs CV: Rate rhythm is regular no murmurs rubs or clicks Abdomen is distended secondary to body habitus soft nontender no masses positive bowel sounds all 4 quadrants Back: No CVA tenderness no spinous process tenderness from cervical spine thoracic and lumbar spine Skin: Intact no petechiae rash induration ulceration or crepitus Extremities: Moving all extremity against resistance cap refill less than 2 seconds neurosensory intact Neuro: Awake alert oriented x3 Glascow coma 15 no focal deficits] Course Course Course Narrative: MRI shows no impinging upon the cord however there is an increase in the compression of the vertebral body of T12. Given that the patient has a appointment with surgeon in the next several days patient can be discharged with a copy of the MRI. Quality Measures none Orders Category Date Time Status MRI Screening NOW Care 07/24/25 13:20 Completed MR thoracic spine wo con Stat Exams 07/24/25 Completed CBC Stat Lab 07/24/25 14:11 Completed CMP [Comprehensive Metabolic Panel] Stat Lab 07/24/25 14:11 Completed PT [Prothrombin Time with INR] Stat Lab 07/24/25 14:11 Completed PTT [Partial Thromboplastin Time] Stat Lab 07/24/25 14:11 Completed Ketorolac Inj [Toradol Inj] Med 07/24/25 13:20 Discontinued 30 mg IM X1 ONE Vital Signs Vital signs: Vital Signs Temperature 97.8 F 07/24/25 13:16 Pulse Rate 73 07/24/25 13:16 Respiratory Rate 20 07/24/25 13:16 Blood Pressure 163/79 H 07/24/25 13:16 Pulse Oximetry (%) 95 07/24/25 13:16 Oxygen Delivery Method Room Air 07/24/25 13:16 Discharge Plan Plan Patient Disposition: HOME (Self Care) Patient condition on transfer: Stable Prescriptions/Referrals Prescriptions/Med Rec: No Action Homa-Franci 0.8 mg tablet 1 tab PO QDAY amiodarone 200 mg tablet 200 mg PO BID nitroglycerin 0.3 mg tablet, sublingual 0.3 mg buccal Q5MIN MDD 3 pills within 15 minutes. PRN (Reason: chest pain) Qty: 15 0RF Rx Instructions: Place under tongue when chest pain starts. Can repeat dose in 5 minutes if pain does not improve with max total of 3 pills within 15 minutes. Do not mix with erectile dysfunction medicines. May cause low blood pressure and headaches. pramipexole 0.5 mg Tablet 0.5 mg PO BID albuterol sulfate 90 mcg/actuation Hfa Aerosol Inhaler 2 puff INHALATION QID PRN (Reason: sob) lactulose 10 gram/15 mL Solution 10 g PO QDAY atorvastatin 40 mg Tablet 40 mg PO QPM clopidogrel 75 mg Tablet 75 mg PO QDAY furosemide 20 mg Tablet 20 mg PO QDAY aspirin 81 mg Capsule 81 mg PO QDAY melatonin 10 mg Capsule 10 mg PO HS PRN (Reason: Insomnia) hydrocodone-acetaminophen 5-325 mg tablet 1 tab PO Q8H MDD 3 PRN (Reason: pain) Qty: 20 0RF doxycycline hyclate 100 mg capsule 100 mg PO BID Qty: 10 0RF Referrals: Malik Mckenzie MD [Primary Care Provider] - In 1 week Problem List Clinical Impression: T12 compression fracture Patient/Caregiver Discharge Instructions Education Materials: ED Fracture, Vertebral Compression Print Language: Turkish Stand Alone Forms: Annabella Award Info., Work/School Release, Patient Portal Info Letter PA/MODERN AND CONTEMPORARY ART CURATOR Supervising Physician PA/MODERN AND CONTEMPORARY ART CURATOR Supervising Physician: Luis rodas ENP [facility] Clinical Information Provided by: patient Medical Records reviewed [facility] Meds/Rx considered, not ordered None Labs/Rad/Tests considered, not ordered None Chronic Illness/Social Conditions Explain: ESRD dialysis EKG EKG not done Labs Labs: interpreted by ok Lab(s) Interpretation(s): CBC shows no leukocytosis H&H of 11 and 33 respectively. No thrombocytopenia Coags within acceptable limits CMP shows a BUN of 70 creatinine 5.6 glucose of 165. AST of 36 alk phos of 199 ALT and T. bili within acceptable limits. Imaging Imaging interpretation: interpreted by me Imaging Interpretation(s): CT of the thoracic spine shows worsening compression of the T12 vertebral body. MRI of the spine shows a severe partially subacute compression fracture of T12 vertebral body with reduction in height of 80% retropulsion of the posterior superior margin of the vertebral body and 4 mm but no impinging on upon the thoracic cord. Medication Administration(s) Medication Administration History Discontinued Medications Ketorolac Tromethamine (Ketorolac Inj 60 Mg/2 Ml Vial) 30 mg IM X1 ONE Stop: 07/24/25 13:21 Last Admin: 07/24/25 13:25 Dose: 30 mg Documented By: JACKELIN
[2025-07-24 21:57] VITALS: BP 148/71; PULSE 62; RESP 17; O2SAT 94
== END 2025-07-24 21:57 | disposition home or self-care (01) ==
PROVIDERS: Nurse Practitioner Family; Emergency Provider Emergency Medicine; PCP Internal Medicine
DX: M48.54XA Collapsed vertebra, not elsewhere classified, thoracic region, initial encounter for fracture (principal); E03.9 Hypothyroidism, unspecified; E78.5 Hyperlipidemia, unspecified; I48.91 Unspecified atrial fibrillation; W19.XXXA Unspecified fall, initial encounter
CPT/HCPCS: 36415; 72146; 80053; 85025; 85610; 85730; 96372; 99283; J1885